=== PATIENT | female | born 2000 | race Caucasian/White ===

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

== ENCOUNTER 2021-12-13 18:50 | Outpatient (CLI) | payer MEDICAID, SELFPAY ==
[2021-12-13 19:24] VITALS: BP 129/83; PULSE 104; TEMP 37.2
[2021-12-13 19:27] LABS: Mucous, Urine 0 SEEN /hpf (<or=2+)
[2021-12-13 19:31] LABS: Color, Urine Yellow (Yellow); Glucose, Dipstick Normal (Normal); Leukocyte Esterase-Dipstick 25 /ul (Negative); Nitrite-Dipstick Negative (Negative); Occult Blood-Urine 10 /ul (Negative); Protein-Dipstick 15 mg/dl (Negative); Urine Bilirubin Dipstick Negative (Negative); Urine Clarity Sl. Cloudy (Clear); Urine Urobilinogen Normal (Normal)
[2021-12-13 19:41] VITALS: BMI 24.8
[2021-12-13 19:48] LABS: Ketone-Dipstick 150 mg/dl (Negative)
[2021-12-13 19:50] LABS: Red Blood Cells-Urine 5-10 SEEN /hpf (0-5); Squamous Epithelial Cells - UA 10-25 SEEN /hpf (5-10); White Blood Cells 5-10 SEEN /hpf (0-5)
[2021-12-13] MEDS: Lactated Ringers 1,000 ML 999 ML IV (19:50)
[2021-12-13 19:51] LABS: Bacteria 4+ /hpf (None Seen)
[2021-12-13] MEDS: Acetaminophen 500 MG Tablet 1000 MG PO (20:02)
[2021-12-13 20:21] LABS: Absolute Neutrophil Count 8.1 X10^3/uL (2.0-7.7); Basophil# 0.04 X10^3/uL; Basophil% 0.4 % (0-1); Eosinophil# 0.04 X10^3/uL; Eosinophils% 0.4 % (0-5); Hematocrit 31.7 % (37-47); Hemoglobin 11.1 g/dL (12.0-15.0); Lymphocyte % 12.4 % (19-41); Mean Corpuscular Volume 88.5 fL (81-99); Mean Platelet Vol. 11.3 fl (6.2-12.0); Monocyte# 0.91 X10^3/uL; Monocyte% 8.7 % (0-10); NRBC Flagged by Analyzer 0 % (0-5); Neutrophil # 8.12 X10^3/uL (2.7-7.7); Neutrophil % 77.3 % (47-70); Platelet Count 218 K/mm3 (150-450); RBC Distribution Width CV 12.5 % (11.6-14.6); RBC Distribution Width SD 40.4 fl (35.1-43.9); Red Blood Count 3.58 M/mm3 (4.2-5.4); White Blood Count 10.5 K/mm3 (4.4-11.0)
--- NOTE | 2021-12-13 20:23 | OB.TRI.NOTE ---
HPI - General HPI Narrative KEITH HIGH, is a 21 female 2 para 0 who presents at 32+ weeks with EDC of 02/04/2022 complaining of some cramping, diarrhea and back pain. She has had hip pain her whole . She thought she was cramping and having contractions earlier today. Now is mostly the back pain. She admits she is very upset because she broke up with her girlfriend today. She thinks some of this might be stress. She denies history of UTI during the . She denies any vaginal bleeding or leaking of fluid. She does states she has had some vaginal itching and thick white discharge. She has had yeast infections throughout the . Maternal Data Information Final HARPER: 02/04/22 Gestational age: 32 09/19 PFSH PFSH Medical History (Updated 12/13/21 @ 20:[address] Christal Fajardo MD) SAB (spontaneous ) Home Medications sertraline 100 mg tablet 100 mg PO DAILY #30 tab 04/06/21 [Rx Last Taken Unknown] cephalexin 500 mg PO TID 7 Days #21 cap 12/13/21 [Rx Last Taken Unknown] miconazole nitrate [Monistat 7] 1 ea VAGINAL QHS 7 Days #1 ea 12/13/21 [Rx Last Taken Unknown] Allergy/AdvReac Type Severity Reaction Status Date / Time No Known Allergies Allergy Verified 12/13/21 20:11 Family History Grandfather Diabetes Hypertension Social History (Updated 11/08/20 @ 17:[address] Alea Soria MD) Smoking Status: Current every day smoker alcohol intake: never substance use type: does not use caffeine: Yes what type of physical activity do you participate in: none seatbelt use: always do you feel safe at home: Yes History 1 Elective abortions Hx Para Spontaneous abortions Hx # Term Pregnancies Ectopic pregnancies Hx # Pregnancies Multiple births # of living children Physical Exam Narrative Awake, alert, no acute distress Skin warm dry and intact Abdomen soft, nondistended, gravid, appropriate for gestational age, nontender. No rebound or guarding no CVA tenderness Extremities: Trace edema NST FHR Rate Baby A Baseline: 150 Variability:: Moderate Accelerations:: 15 x 15 Decelerations:: None NST Reactive:: Yes FHR Category:: Category I Uterine Activity:: No regular contractions Assessment & Plan (1) 32 weeks gestation of : PLAN: We will give patient IV fluids, antiemetics, check CBC and urinalysis was reviewed. Consistent with urinary tract infection. No CVA tenderness and no fever so does not meet criteria for pyelonephritis. Will give 1 dose of Ancef and then sent home with p.o. antibiotics. We will give Monistat for vaginal yeast infection. Schedule follow-up in the office within 1 to 2 weeks or as needed. No evidence of active labor. (2) Nulliparity: (3) UTI (urinary tract infection): QUALIFIERS: Urinary tract infection type: acute cystitis Hematuria presence: with hematuria Qualified Code(s): N30.01 - Acute cystitis with hematuria
[2021-12-13 21:00] VITALS: BP 120/70; PULSE 70; O2SAT 92; O2SAT 97
== END 2021-12-13 21:30 | disposition home or self-care (01) ==
LOC: WPOUT 18:59 → WP 18:59
PROVIDERS: Visit Provider Obstetrics & Gynecology
DX: O23.43 Unspecified infection of urinary tract in pregnancy, third trimester (principal); O99.333 Smoking (tobacco) complicating pregnancy, third trimester; Z3A.32 32 weeks gestation of pregnancy; F17.200 Nicotine dependence, unspecified, uncomplicated; O99.891 Other specified diseases and conditions complicating pregnancy; R25.2 Cramp and spasm
CPT/HCPCS: 96365; 59025; 59050; 81001; 85025; 87086; 87088; 99218; J7120; G0378

== ENCOUNTER 2022-01-12 16:45 | Outpatient (CLI) | payer MEDICAID, SELFPAY ==
[2022-01-12 16:54] VITALS: BP 110/62; PULSE 73
[2022-01-12 16:57] VITALS: BP 110/62; PULSE 73; TEMP 37
[2022-01-12 17:08] VITALS: PULSE 70; O2SAT 98
[2022-01-12 17:12] VITALS: BMI 25.4
--- NOTE | 2022-01-13 07:38 | OB.TRI.NOTE ---
HPI - General General Date of Service: 01/12/22 Chief Complaint: diarrhea and nausea HPI Narrative KEITH HIGH, is a 21 F who presents for complaints of diarrhea and nausea- last episode of vomiting was hours prior to arrival. has some cramping. PFSH PFS Medical History (Updated 01/13/22 @ 07:[address] Paola Sierra MD) SAB (spontaneous ) Home Medications vits,calcium no.78-iron fumarate-folic acid 29 mg-1 mg tablet (Prenatabs FA) 1 tab PO DAILY 01/12/22 [History Last Taken Unknown] Allergy/AdvReac Type Severity Reaction Status Date / Time cider vinegar Allergy Food Verified 01/12/22 17:20 Allergy Family History Grandfather Diabetes Hypertension Social History (Updated 11/08/20 @ 17:[address] Alea Soria MD) Smoking Status: Current every day smoker alcohol intake: never substance use type: does not use caffeine: Yes what type of physical activity do you participate in: none seatbelt use: always do you feel safe at home: Yes History 1 Elective abortions Hx Para Spontaneous abortions Hx # Term Pregnancies Ectopic pregnancies Hx # Pregnancies Multiple births # of living children NST FHR Rate Baby A Baseline: 125 Variability:: Moderate Accelerations:: 15 x 15 Decelerations:: None NST Reactive:: Yes FHR Category:: Category I Uterine Activity:: more irritability Assessment & Plan (1) Nausea/vomiting in : (2) Diarrhea during : PLAN: Plan @ 37 weeks, nausea and diarrhea afebrile on unit, VS stable NST reactive cat 1 able to tolerate po fluids plan to dc home- If unable to tolerate fluids for 24 hrs or has fever will return
== END 2022-01-12 17:43 | disposition home or self-care (01) ==
LOC: WPOUT 16:48 → WP 16:49
PROVIDERS: Referring Provider Obstetrics & Gynecology; Visit Provider Obstetrics & Gynecology
DX: O21.2 Late vomiting of pregnancy (principal); O99.891 Other specified diseases and conditions complicating pregnancy; O99.333 Smoking (tobacco) complicating pregnancy, third trimester; R19.7 Diarrhea, unspecified; F17.200 Nicotine dependence, unspecified, uncomplicated; Z3A.37 37 weeks gestation of pregnancy
CPT/HCPCS: 59025; 59050; 99218; G0378

== ENCOUNTER 2022-02-03 12:10 | Outpatient (CLI) | payer MEDICAID, SELFPAY ==
[2022-02-03 12:29] VITALS: BMI 26.9
[2022-02-03 12:35] VITALS: BP 123/80; PULSE 114; TEMP 37.3
[2022-02-03 12:36] VITALS: PULSE 127; O2SAT 97
[2022-02-03 12:40] VITALS: TEMP 38.3
[2022-02-03] MEDS: Lactated Ringers 1,000 ML 999 ML IV (13:10)
[2022-02-03] MEDS: Acetaminophen 500 MG Tablet 1000 MG PO (13:19)
[2022-02-03 13:22] LABS: Hematocrit 30.7 % (37-47); Hemoglobin 10.1 g/dL (12.0-15.0); Mean Corp Hgb Conc 32.9 g/dL (32-36); Mean Corpuscular Hgb 28.8 pg (27.0-32.0); Mean Corpuscular Volume 87.5 fL (81-99); Mean Platelet Vol. 11.8 fl (6.2-12.0); Platelet Count 122 K/mm3 (150-450); RBC Distribution Width SD 43.6 fl (35.1-43.9); Red Blood Count 3.51 M/mm3 (4.2-5.4); White Blood Count 9.3 K/mm3 (4.4-11.0)
[2022-02-03 13:41] LABS: ALB/GLOB Ratio 0.7 RATIO (0.9-2.4); AST(SGOT) 15 U/L (15-37); Alanine Aminotransfer ALT/SGPT 15 U/L (13-56); Albumin, Serum 2.6 g/dL (3.2-5.0); Alkaline Phosphatase 158 U/L (45-117); Anion Gap 8 (5-15); BUN 5 mg/dL (7-18); BUN/Creat Ratio 7.5 RATIO (10-20); Calcium,Total 8.3 mg/dL (8.5-10.1); Chloride 109 mmol/L (98-107); Creatinine, Serum 0.66 mg/dL (0.55-1.02); EST Glomerular Filtration Rate 120 mL/min (>60); Est Glom Filt Rate - Afr Amer 145 mL/min (>60); Estimated Creatinine Clearance 127.29 ml/min; Globulin 3.6 g/dL (2.2-4.2); Glucose 75 mg/dL (74-106); Potassium 3.3 mmol/L (3.5-5.1); Protein, Total 6.2 g/dL (6.4-8.2); Sodium Level 137 mmol/L (136-145)
[2022-02-03 14:13] LABS: Bacteria 0 SEEN /hpf (None Seen); Mucous, Urine 0 SEEN /hpf (<or=2+); Red Blood Cells-Urine 0 SEEN /hpf (0-5); Squamous Epithelial Cells - UA 0 SEEN /hpf (5-10); White Blood Cells 0 SEEN /hpf (0-5)
[2022-02-03 14:22] LABS: Color, Urine Yellow (Yellow); Glucose, Dipstick Normal (Normal); Ketone-Dipstick Negative (Negative); Leukocyte Esterase-Dipstick Negative /ul (Negative); Nitrite-Dipstick Negative (Negative); Occult Blood-Urine Negative /ul (Negative); Protein-Dipstick Negative (Negative); Urine Bilirubin Dipstick Negative (Negative); Urine Clarity Clear (Clear); Urine Urobilinogen Normal (Normal); Urine pH 6.5 (5.0 - 8.0)
[2022-02-03] MEDS: Ondansetron 4 MG/2 ML Vial IV (14:36)
[2022-02-03 14:41] VITALS: BP 132/80; PULSE 101; TEMP 37.1; O2SAT 97
--- NOTE | 2022-02-04 09:55 | OB.TRI.NOTE ---
HPI - General HPI Narrative KEITH HIGH, is a 21 F who presents at 40w1d with complaint of lower back pain intermittently. Complaint of nausea, vomiting, diarrhea and fever. Feelin baby move. Denies vaginal bleeding or leakage of fluid, unsure if having contractions. PFSH PFSH Medical History (Updated 02/04/22 @ 09:58 by Meagan Peraza CNM) SAB (spontaneous ) Home Medications vits,calcium no.78-iron fumarate-folic acid 29 mg-1 mg tablet (Prenatabs FA) 1 tab PO DAILY 01/12/22 [History Last Taken 02/02/22 08:00] iron 324 mg PO/SL DAILY 02/03/22 [History Last Taken 02/02/22 08:00] Allergy/AdvReac Type Severity Reaction Status Date / Time cider vinegar Allergy Food Verified 02/03/22 12:37 Allergy Family History Grandfather Diabetes Hypertension Social History (Updated 11/08/20 @ 17:[address] Alea Soria MD) Smoking Status: Current every day smoker alcohol intake: never substance use type: does not use caffeine: Yes what type of physical activity do you participate in: none seatbelt use: always do you feel safe at home: Yes History 1 Elective abortions Hx Para Spontaneous abortions Hx # Term Pregnancies Ectopic pregnancies Hx # Pregnancies Multiple births # of living children Physical Exam Narrative Cervix closed per nursing staff NST FHR Rate Baby A Baseline: 125 Variability:: Moderate Accelerations:: 15 x 15 Decelerations:: None NST Reactive:: Yes Uterine Activity:: None Assessment & Plan (1) COVID-19 affecting in third trimester: (2) Diarrhea during : (3) Nausea/vomiting in : PLAN: Plan 1) vitals stable, temp 100.9 2) WBC 9.3 3) 1 liter LR bolus 4) COVID positive 5) Urine culture 6) Reactive NST 7) D/C home with home management and when to call
== END 2022-02-03 15:45 | disposition home or self-care (01) ==
LOC: WPOUT 12:16 → WP 12:16
PROVIDERS: Referring Provider Advanced Practice Midwife; Visit Provider Advanced Practice Midwife
DX: O98.513 Other viral diseases complicating pregnancy, third trimester (principal); O99.333 Smoking (tobacco) complicating pregnancy, third trimester; O99.891 Other specified diseases and conditions complicating pregnancy; O21.2 Late vomiting of pregnancy; U07.1 COVID-19; F17.200 Nicotine dependence, unspecified, uncomplicated; R19.7 Diarrhea, unspecified; Z3A.40 40 weeks gestation of pregnancy
CPT/HCPCS: 96365; 96375; 80053; 87428; J2405; 59050 ×2; 81001; 59025; 87088; G0378 ×2; 85027; 87086; 99218; J7120

== ENCOUNTER 2022-02-06 19:20 | Inpatient (IN) | payer MEDICAID, SELFPAY ==
[2022-02-06] VITALS (34 sets, daily range): BP systolic 112–169; BP diastolic 58–107; PULSE 56–103; TEMP 36.2–37.1; O2SAT 94–100; BMI 26.6
[2022-02-06] MEDS: LACTATED RINGERS 500 ML 999 ML IV (19:40)
[2022-02-06 19:58] LABS: Absolute Lymphocyte Count 0.87 X10^3/uL (0.83-4.51); Absolute Neutrophil Count 5.9 X10^3/uL (2.0-7.7); Basophil# 0.02 X10^3/uL; Basophil% 0.3 % (0-1); Eosinophil# 0.01 X10^3/uL; Eosinophils% 0.1 % (0-5); Hematocrit 34.2 % (37-47); Lymphocyte # 0.87 X10^3/ul (0.83-4.51); Lymphocyte % 11.7 % (19-41); Mean Corp Hgb Conc 32.2 g/dL (32-36); Mean Corpuscular Hgb 28.1 pg (27.0-32.0); Mean Corpuscular Volume 87.5 fL (81-99); Mean Platelet Vol. 12.3 fl (6.2-12.0); Monocyte# 0.65 X10^3/uL; Monocyte% 8.7 % (0-10); NRBC Flagged by Analyzer 0 % (0-5); Neutrophil # 5.87 X10^3/uL (2.7-7.7); Neutrophil % 78.8 % (47-70); Platelet Count 133 K/mm3 (150-450); RBC Distribution Width CV 13.9 % (11.6-14.6); RBC Distribution Width SD 43.9 fl (35.1-43.9); Red Blood Count 3.91 M/mm3 (4.2-5.4); White Blood Count 7.5 K/mm3 (4.4-11.0)
[2022-02-06] MEDS: Lactated Ringers 1,000 ML 200 ML IV (20:11)
[2022-02-06] MEDS: fentaNYL-bupivacaine (epidural) 100 ML BAG EPIDURAL (20:43)
[2022-02-06 20:54] LABS: AST(SGOT) 26 U/L (15-37); Alanine Aminotransfer ALT/SGPT 22 U/L (13-56); Creatinine, Serum 0.63 mg/dL (0.55-1.02); EST Glomerular Filtration Rate 128 mL/min (>60); Est Glom Filt Rate - Afr Amer 155 mL/min (>60); Estimated Creatinine Clearance 138.52 ml/min; Uric Acid 7.5 mg/dL (2.6-6.0)
[2022-02-06 21:02] LABS: Protein, Urine (Random) 50.5 mg/dL (<11.9); Protein:Creat Ratio 380 mg/g CRE (0-200)
[2022-02-06 21:43] LABS: Amphetamine Urine VISTA NEGATIVE (<1000 ng/mL); Barbiturate Urine VISTA NEGATIVE (< 200 ng/mL); Benzodiazepine Urine VISTA NEGATIVE (< 200 ng/mL); Cocaine Urine VISTA NEGATIVE (< 300 ng/mL); Ecstacy Urine VISTA NEGATIVE (< 500 ng/mL); Methadone Urine VISTA NEGATIVE (< 300 ng/mL); PCP Urine VISTA NEGATIVE (< 25 ng/mL); THC Urine VISTA POSITIVE (< 50 ng/mL); Vista UDS pH Range 7
[2022-02-06] MEDS: Ondansetron 4 MG/2 ML Vial IV (21:46)
--- NOTE | 2022-02-06 23:08 | PCM.HP.OB ---
HPI - General General Date of Admission: 02/06/22 Date of Service: 02/06/22 Chief Complaint: labor HPI Narrative KEITH HIGH, is a 21 F who presents at 40w4d in labor. Had membrane sweep in office and changed from 2 to 4 cm. No vb, lof. Good FM. Diagnosed with Covid 3 days ago. Late transfer of care in this . FOB is not involved. H/o depression and nicotine vaping. PFSH PFSH Medical History (Updated 02/06/22 @ 23:[address] Kortney Yarbrough, DO) SAB (spontaneous ) Home Medications vits,calcium no.78-iron fumarate-folic acid 29 mg-1 mg tablet (Prenatabs FA) 1 tab PO DAILY Check with primary doctor 01/12/22 [History Last Taken 02/03/22 21:00] iron 324 mg PO/SL DAILY Check with primary doctor 02/03/22 [History Last Taken 02/03/22 21:00] Allergy/AdvReac Type Severity Reaction Status Date / Time cider vinegar Allergy Food Verified 02/06/22 19:41 Allergy Family History Grandfather Diabetes Hypertension Social History (Updated 11/08/20 @ 17:[address] Alea Soria MD) Smoking Status: Former smoker alcohol intake: never substance use type: does not use caffeine: Yes what type of physical activity do you participate in: none seatbelt use: always do you feel safe at home: Yes History 1 Elective abortions Hx Para 0 Spontaneous abortions Hx # Term Pregnancies Ectopic pregnancies Hx # Pregnancies Multiple births # of living children NST FHR Rate Baby A FHR Category:: Category I Uterine Activity:: Ctx q 3-4 min Vital Signs Vital Signs Vital Signs: 02/06/22 18:45 02/06/22 18:45 02/06/22 19:29 Temperature Temperature Source Pulse Rate 74 Blood Pressure 138/80 H 166/107 H BP Systolic 138 166 BP Diastolic 80 107 Pulse Ox 02/06/22 19:29 02/06/22 19:45 02/06/22 19:45 Temperature Temperature Source Pulse Rate 103 H 99 Blood Pressure 156/104 H BP Systolic 156 BP Diastolic 104 Pulse Ox 02/06/22 20:01 02/06/22 20:01 02/06/22 20:17 Temperature Temperature Source Pulse Rate 72 Blood Pressure 169/98 H 136/86 H BP Systolic 169 136 BP Diastolic 98 86 Pulse Ox 02/06/22 20:18 02/06/22 20:18 02/06/22 20:25 Temperature Temperature Source Pulse Rate 75 78 Blood Pressure BP Systolic BP Diastolic Pulse Ox 98 02/06/22 20:25 02/06/22 20:30 02/06/22 20:30 Temperature Temperature Source Pulse Rate 64 Blood Pressure 134/83 H BP Systolic 134 BP Diastolic 83 Pulse Ox 98 02/06/22 20:30 02/06/22 20:35 02/06/22 20:35 Temperature Temperature Source Pulse Rate 73 Blood Pressure BP Systolic BP Diastolic Pulse Ox 100 100 02/06/22 20:36 02/06/22 20:36 02/06/22 20:40 Temperature Temperature Source Pulse Rate 69 68 Blood Pressure 129/80 H BP Systolic 129 BP Diastolic 80 Pulse Ox 02/06/22 20:40 02/06/22 20:41 02/06/22 20:41 Temperature Temperature Source Pulse Rate 81 Blood Pressure 132/80 H BP Systolic 132 BP Diastolic 80 Pulse Ox 98 02/06/22 20:45 02/06/22 20:45 02/06/22 20:45 Temperature Temperature Source Pulse Rate 75 Blood Pressure 138/82 H BP Systolic 138 BP Diastolic 82 Pulse Ox 99 02/06/22 20:50 02/06/22 20:50 02/06/22 20:50 Temperature Temperature Source Pulse Rate 69 Blood Pressure 125/90 H BP Systolic 125 BP Diastolic 90 Pulse Ox 99 02/06/22 20:53 02/06/22 20:53 02/06/22 20:55 Temperature 98.2 F Temperature Source Temporal Pulse Rate 84 Blood Pressure BP Systolic BP Diastolic Pulse Ox 02/06/22 20:55 02/06/22 20:57 02/06/22 20:57 Temperature Temperature Source Pulse Rate 61 Blood Pressure BP Systolic BP Diastolic Pulse Ox 100 94 02/06/22 21:00 02/06/22 21:00 02/06/22 21:00 Temperature Temperature Source Pulse Rate 66 Blood Pressure 117/62 BP Systolic 117 BP Diastolic 62 Pulse Ox 99 02/06/22 21:00 02/06/22 21:05 02/06/22 21:05 Temperature Temperature Source Pulse Rate 73 67 Blood Pressure BP Systolic BP Diastolic Pulse Ox 99 02/06/22 21:07 02/06/22 21:07 02/06/22 21:10 Temperature Temperature Source Pulse Rate 63 Blood Pressure 114/66 118/58 L BP Systolic 114 118 BP Diastolic 66 58 Pulse Ox 02/06/22 21:10 02/06/22 21:10 02/06/22 21:16 Temperature Temperature Source Pulse Rate 64 Blood Pressure 127/62 H BP Systolic 127 BP Diastolic 62 Pulse Ox 99 02/06/22 21:16 02/06/22 21:15 02/06/22 21:19 Temperature Temperature Source Pulse Rate 64 Blood Pressure 124/62 H BP Systolic 124 BP Diastolic 62 Pulse Ox 99 02/06/22 21:19 02/06/22 21:20 02/06/22 21:20 Temperature Temperature Source Pulse Rate 66 56 L Blood Pressure BP Systolic BP Diastolic Pulse Ox 99 02/06/22 21:25 02/06/22 21:25 02/06/22 21:32 Temperature Temperature Source Pulse Rate 74 Blood Pressure 131/76 H BP Systolic 131 BP Diastolic 76 Pulse Ox 98 02/06/22 21:32 02/06/22 21:47 02/06/22 21:47 Temperature Temperature Source Pulse Rate 72 63 Blood Pressure 112/67 BP Systolic 112 BP Diastolic 67 Pulse Ox 02/06/22 21:48 02/06/22 21:48 02/06/22 21:51 Temperature Temperature Source Temporal Pulse Rate 59 L Blood Pressure 115/70 BP Systolic 115 BP Diastolic 70 Pulse Ox 02/06/22 21:51 02/06/22 22:16 02/06/22 22:16 Temperature 98.0 F Temperature Source Pulse Rate 57 L Blood Pressure 120/71 BP Systolic 120 BP Diastolic 71 Pulse Ox 02/06/22 22:27 02/06/22 22:27 02/06/22 22:27 Temperature Temperature Source Pulse Rate 62 Blood Pressure 153/103 H BP Systolic 153 BP Diastolic 103 Pulse Ox 100 02/06/22 22:38 02/06/22 22:38 02/06/22 22:38 Temperature Temperature Source Temporal Pulse Rate 98 Blood Pressure 128/64 H BP Systolic 128 BP Diastolic 64 Pulse Ox 02/06/22 22:38 Temperature 97.9 F Temperature Source Pulse Rate Blood Pressure BP Systolic BP Diastolic Pulse Ox Weight Weight: 170 lb Body Mass Index (BMI) 26.6 Physical Exam Narrative: Cvx 6/80/-1, vertex Labs Labs Labs: Blood Type O POSITIVE Antibody Screen NEGATIVE Hct 34.2 % (37-47) L Hgb 11.0 g/dL (12.0-15.0) L Obstetrics US Assessment & Plan (1) COVID-19 affecting in third trimester: (2) 40 weeks gestation of : PLAN: - Admit for routine intrapartum care - Epidural for pain control - GBS negative - EFW expected to be < 4500 g and pelvis adequate - Covid positive. Contact precautions - Anticipate vaginal delivery (3) Active labor at term: (4) History of depression: (5) History of nicotine vaping: PLAN: - Drug screen on admission (6) Pre-eclampsia: PLAN: - BP elevated on admission and now WNL - No symptoms of pre e - Labs WNL except elevated p/c ratio
--- NOTE | 2022-02-06 23:13 | PCM.PN.BLA ---
Progress Note Cvx 6/-1, head well applied. AROM performed in usual fashion for return of moderate amount of clear fluid.
[2022-02-07] VITALS (28 sets, daily range): BP systolic 114–202; BP diastolic 58–99; PULSE 53–134; RESP 14–18; TEMP 36.2–37.1; O2SAT 96–99
[2022-02-07] MEDS: Lactated Ringers 1,000 ML 200 ML IV (01:03)
[2022-02-07] MEDS: fentaNYL-bupivacaine (epidural) 100 ML BAG EPIDURAL (01:04)
[2022-02-07] MEDS: Ondansetron 4 MG/2 ML Vial IV (02:37)
[2022-02-07] MEDS: Oxytocin 30 units/NS 500 ml 30 UNITS/500 ML IV.SOLN 334 UNITS IV (03:57)
[2022-02-07] MEDS: miSOPROStol 200 MCG Tablet 800 MCG RC (04:09)
--- NOTE | 2022-02-07 04:15 | PCM.OPRPT ---
Problems Associated Problem List Diagnoses (1) Pre-eclampsia: (2) History of nicotine vaping: (3) History of depression: (4) Active labor at term: (5) 40 weeks gestation of : (6) COVID-19 affecting in third trimester: Report of Operation Date of Procedure: 02/07/22 Pre-Operative Diagnosis: 40 week gestation, labor, covid infection, pre eclampsia without severe features Post-Operative Diagnosis: As above Surgery/Procedure Performed:: Description of Surgical Findings:: VFI 8, 9. Normal appearing placenta with 3 VC. Normal uterus. Surgeon: Kortney Yarbrough Type of Anesthesia: Epidural Special Medications: None Specimen's removed: Placenta Drains: Schmidt Estimated Blood Loss (mL): 300 Fluids Replaced: n/a Description of Procedure: Patient was complete and pushing. Variable decelerations were noted with pushing, but good recovery of heart rate with moderate variability in between. Patient was pushing for about 1 hour. The variable decelerations were noted to be more prolonged at this point. Fetus in occiput anterior position. Perineal massage was applied throughout the pushing process. A tight perineal band was noted, and it was felt to be preventing delivery at this point. Discussed episiotomy with patient and she desired to proceed. A midline episiotomy was made using scissors. With the next contraction after the episiotomy was made, the infant was delivered. The head of the infant was delivered in occiput anterior position. The anterior shoulder was delivered with gentle downward traction, followed by the posterior shoulder and body of the without any excessive force or delay. The viable female infant was vigorous and placed on the maternal abdomen. The cord was clamped and cut after a 60 sec delay by a family member. Cord blood was obtained. The placenta was delivered with fundal massage and noted to be normal-appearing and intact with a three-vessel cord. The placenta was sent to pathology for review. Uterus was explored and it was noted to be firm. Bleeding then increased and uterus was explored and noted to be boggy. No retained placenta or tissue was noted, the uterus was cleared of all clot and debris. Uterine massage was performed and the uterus was then firm and bleeding hemostatic. A second-degree perineal laceration was repaired with 3-0 Vicryl in usual fashion. 800 mcg of Cytotec was placed rectally. Fundus firm and bleeding hemostatic at end of delivery. Grafts/Implants Used: None Complications None Admit VTE Documentation VTE Present on Admission: No
--- NOTE | 2022-02-07 04:39 | PLAC_PTH ---
PATIENT: KEITH HIGH LOC: [facility] U#:[id number] AGE/SX: 21/F ROOM: WP010 RE02/06/[address]: Dr. Kortney Yarbrough DO : 2000 BED: 1 DIS: 02/09/2022 SPEC #: [id number] RECD: 02/07/22 08:29 STATUS: DELANEY ELA #: [id number] ZACK: 02/07/22 04:[address]: Kortney Yarbrough DEPT: SURGICAL PATHOLOGY RECD BY: Niko Alonzo ENTERED: 02/07/22 08:51 SP TYPE: PLACENTA OTHR DR: No Primary Care Phys Tissues: Placenta, NOS Procedures: Surgery Specimen Level V HEADER OPERATION: Vaginal delivery PRE-OP DIAGNOSIS: Covid in TISSUE SUBMITTED: Placenta MICROSCOPIC DIAGNOSIS Placenta: Placental disc - third trimester placenta (534 gm). - Focal area of peripheral infarction (1.5 cm in greatest dimension). - Focal minimal acute vasculitis of subamniotic blood vessels. Membranes - mild acute chorioamnionitis. Umbilical cord - three blood vessels and minimal acute funisitis. SJ:feliz 02/09/2022 MICROSCOPIC DESCRIPTION Slides are reviewed. GROSS DESCRIPTION SPECIMEN: PLACENTA / CLINICAL INFORMATION: A. Weight: 3.28 kg B. Gestational Age: 40 weeks C. Sex: Female PLACENTAL WEIGHT (POST FIXATION): 534 gm PLACENTAL DIMENSIONS: 20 x 18 x 2.5 cm PLACENTAL SHAPE: Usual ovoid PLACENTAL WEIGHT FOR GESTATIONAL AGE: Within 10-99th percentile MEMBRANES - Present A. Insertion: Marginal B. Site of rupture from edge: 5 cm from edge of placental disc C. Color of membrane: Soto-mucoidy D. Abnormalities: None UMBILICAL CORD - Present A. Color: Soto-nguyễn B. Insertion: Paracentral C. Length: 29 cm D. Diameter: 1 to 2 cm E. Number of vessels: Three F. Abnormalities: None PLACENTAL DISC - Present A. Color of surface: Soto-nguyễn B. surface abnormalities: None C. Maternal cotyledons: Intact with minimal tears D. Attached retro placental clot: No clot E. Cut surface: Dark red and spongy F. Lesions: Sections reveal a soto, indurated area in the peripheral portion of the placenta measuring 1.5 cm in greatest dimension. G. Separate clot: Absent SECTIONS SUBMITTED: 1. Membrane roll 2. Cord, maternal end 3. Cord, end 4. Placental disc, and maternal surfaces 5. Placental disc, and maternal surfaces 6. Placental disc, and maternal surfaces, lesion SJ:feliz 02/08/2022 TC:2 CPT: 79299
[2022-02-07] MEDS: 0.9% Saline Lock 10 ML Syringe IV (06:33)
[2022-02-07] MEDS: Ibuprofen 600 MG Tablet PO ×3 (09:41→23:37)
[2022-02-07] MEDS: Benzocaine/Lanolin/Aloe Vera 1 SPRAY EACH TOPICAL (09:42)
[2022-02-07] MEDS: Acetaminophen 500 MG Tablet 1000 MG PO (21:11)
[2022-02-08] VITALS (7 sets, daily range): BP systolic 119–158; BP diastolic 73–95; PULSE 43–79; RESP 16–18; TEMP 36.1–36.3; O2SAT 98–99
--- NOTE | 2022-02-08 03:26 | NURSING ---
0245 report given to Rani CAMPOS she assumes pt and care at this time
--- NOTE | 2022-02-08 06:32 | PCM.PN.OB ---
Subjective Subjective Pain well controlled. Average lochia. Denies headache or visual changes. Objective Data Objective Data 2+ DTRs, 1+ edema, no clonus Vital Signs: Vital Signs Temp Pulse Resp BP Pulse Ox O2 Del Method 97.1 F L 52 L 18 132/78 H 99 Room Air 02/07/22 23:40 02/08/22 04:38 02/08/22 04:38 02/08/22 04:38 02/07/22 23:40 02/08/22 04:38 Oxygen Delivery Method Room Air Weight: 77.111 kg Body Mass Index (BMI) 26.6 Intake & Output: Intake and Output for Last 24 Hours 02/06/22 02/07/22 02/08/22 23:59 23:59 23:59 Intake Total 500 / 500 2143.33 / 2143.33 Output Total 2600 / 2600 Balance 500 / 500 -456.67 / -456.67 Lab / Micro Data Result Diagrams: 02/06/22 19:40 02/06/22 19:40 Physical Exam Const alert and no apparent distress Narrative: Fundus firm, below umbilicus. Assessment & Plan (1) Pre-eclampsia: PLAN: day 1 status post vaginal delivery. Patient diagnosed with mild preeclampsia. Blood pressures are stable. Continue to monitor blood pressures. is bottlefeeding and doing well. Patient has COVID-19, symptoms have markedly improved since last week when she is diagnosed. Routine care
--- NOTE | 2022-02-08 09:47 | NURSING ---
Dr. Fajardo on unit. Notified of pulse rate 43 and BP's that were taken at [address] Fajardo states to notify her if BP's start to trend upwards or patient has a change of status. No changes to POC at this time.
[2022-02-08] MEDS: Ibuprofen 600 MG Tablet PO (13:52)
--- NOTE | 2022-02-08 13:54 | NURSING ---
Pt denies vision changes, NORMAN, or epigastric pain. BP elevated on both arms while pt at rest. Will notify doctor.
--- NOTE | 2022-02-08 14:07 | NURSING ---
Called [facility] office and left message with the nurse to update Doctor Fajardo on pt's BP's in the 150's. Pt is asymptomatic. Nurse states that she will pass the message along to Dr. Fajardo when she gets out of the room with her patient.
--- NOTE | 2022-02-08 14:22 | NURSING ---
Dr. Fajardo calls unit for update on BP. Order received for Procardia XL 30 mg Daily
[2022-02-08] MEDS: NIFEdipine 30 MG Tablet PO (14:48)
[2022-02-09] MEDS: Ibuprofen 600 MG Tablet PO (01:11)
[2022-02-09 01:13] VITALS: BP 133/84; PULSE 63; RESP 16; TEMP 36.7; O2SAT 98
[2022-02-09 04:09] VITALS: BP 125/77; PULSE 53; RESP 16; TEMP 36.2; O2SAT 95
--- NOTE | 2022-02-09 08:21 | DS.PCM_ITS ---
Providers Date of Admission: 02/06/22 Primary Care Physician: Ciera Primary Care Phys Reason For Visit: VAGINAL DELIVERY Diagnosis Discharge Diagnosis (1) Pre-eclampsia: Status: Acute Code(s): O14.90 - Unspecified pre-eclampsia, unspecified trimester Plan: day 1 status post vaginal delivery. Patient diagnosed with mild preeclampsia. Blood pressures are stable. Continue to monitor blood pressures. is bottlefeeding and doing well. Patient has COVID-19, symptoms have markedly improved since last week when she is diagnosed. Routine care Medications at Discharge Home Medications vits,calcium no.78-iron fumarate-folic acid 29 mg-1 mg tablet (Prenatabs FA) 1 tab PO DAILY Check with primary doctor 01/12/22 iron 324 mg PO/SL DAILY Check with primary doctor 02/03/22 ibuprofen 600 mg tablet 600 mg PO Q6H PRN Pain 20 days #60 TABLETS 02/09/22 nifedipine 30 mg tablet,extended release 24 hr (Procardia XL) 30 mg PO DAILY #30 tabs 02/09/22 Hospital Course Operations None Procedures None Summary of Care Provided Hospital Course: 21-year-old 1 para 0 admitted at 40-4/7 weeks gestation on 02/06/2022 and spontaneous labor. She had a vaginal delivery without complication on 02/07/2022. She was diagnosed with COVID 19 3 days before delivery. She was fee ling better upon admission. She denied any significant shortness of breath, fevers or cough. She was diagnosed with preeclampsia without severe features. on evening #1 her blood pressures did increase significantly. She is started on Procardia 30 mg daily and her blood pressure stabilized. By day #2 her blood pressures are stable and she had no signs or symptoms of severe preeclampsia. She was discharged home to follow-up in the office for blood pressure check within 5 days or return as needed. Weight / BMI Weight Weight: 77.111 kg Body Mass Index (BMI) 26.6 ABG / Lab / Microbiology Data Result Diagrams: 02/06/22 19:40 02/06/22 19:40 Meaningful Use Info Meaningful Use Diagnoses (Choose all that apply): None applicable Discharge Plan Admission Admit Date/Time: 02/06/22 19:20 Primary Reason for Your Visit: Vaginal delivery Attending Provider: Kortney Yarbrough Primary Care Provider: Care Physician,Ciera Primary Discharge Orders/Prescriptions Prescriptions: New nifedipine [Procardia XL] 30 mg tablet extended release 24hr 30 mg PO DAILY Qty: 30 0RF ibuprofen [ibuprofen] 600 MG tablet 600 mg PO Q6H PRN (Reason: Pain) 20 Days Qty: 60 1RF Continued Prenatabs FA 29-1 mg Tablet 1 tab PO DAILY iron 324 mg PO/SL DAILY Referrals / Follow Up: Care Physician,No Primary [Primary Care Provider] - Disposition Disposition (needs filled in before D/C Order can be placed): Home, Self Care
--- NOTE | 2022-02-09 08:48 | PCM.PN.OB ---
Subjective Subjective Patient is doing well. Ambulating and voiding without difficulty. Tolerating regular diet without nausea or vomiting. Lochia is normal. She denies chest pain, shortness of breath, lightheadedness, dizziness, leg pain. She desires to go home today. Objective Data Objective Data Vital Signs: Vital Signs Temp Pulse Resp BP Pulse Ox O2 Del Method 97.1 F L 53 L 16 125/77 H 95 Room Air 02/09/22 04:09 02/09/22 04:09 02/09/22 04:09 02/09/22 04:09 02/09/22 04:09 02/09/22 04:09 Oxygen Delivery Method Room Air Weight: 170 lb Body Mass Index (BMI) 26.6 Intake & Output: Intake and Output for Last 24 Hours 02/07/22 02/08/22 02/09/22 23:59 23:59 23:59 Intake Total 2143.33 / 2143.33 Output Total 2600 / 2600 Balance -456.67 / -456.67 Lab / Micro Data Result Diagrams: 02/06/22 19:40 02/06/22 19:40 Physical Exam Const alert and no apparent distress General Appearance: comfortable HEENT normocephalic Assessment & Plan (1) Pre-eclampsia: (2) COVID-19 affecting in third trimester: (3) Vaginal delivery: PLAN: Patient is day 2 from a vaginal delivery. Procardia was started yesterday. Blood pressures are well controlled on Procardia. She denies any symptoms of preeclampsia this morning. We will send a blood pressure cuff to pharmacy. Discussed checking blood pressures at home and following up in 1 week for blood pressure check. Reviewed warning signs and symptoms of worsening preeclampsia and reasons to call. She is meeting all milestones for home desires discharge. Discharge instructions were reviewed.
[2022-02-09 09:27] VITALS: BP 144/81; PULSE 55; RESP 16; TEMP 36.1; O2SAT 97
--- NOTE | 2022-02-09 09:56 | NURSING ---
Called [facility] and spoke with Gloria Peraza CNM about Pt's BP of 144/81. Pt is to let office know if her BP's at home are consistently 140's/80's. Pt needs to take BP twice a day and f/u in the office next week. The office will call the patient to schedule a a f/u appt. Dr. Yarbrough came on the unit as this RN was finished talking to Gloria Peraza CNM about POC and she agreed with plan.
[2022-02-09 13:11] VITALS: BP 145/94; PULSE 67; RESP 16; TEMP 36.4; O2SAT 100
[2022-02-09] MEDS: NIFEdipine 30 MG Tablet PO (13:14)
[2022-02-09 14:42] LABS: Pathology Specimen OB SEE PATHOLOGY REPORT
== END 2022-02-09 13:20 | disposition home or self-care (01) | DRG 560 ==
LOC: WPOUT 19:20 → WP 19:29
PROVIDERS: Admitting Provider Obstetrics & Gynecology; Visit Provider Obstetrics & Gynecology
DX: O14.04 Mild to moderate pre-eclampsia, complicating childbirth (principal); Z37.0 Single live birth; U07.1 COVID-19; O98.52 Other viral diseases complicating childbirth; Z87.891 Personal history of nicotine dependence; Z3A.40 40 weeks gestation of pregnancy; O76 Abnormality in fetal heart rate and rhythm complicating labor and delivery; O70.1 Second degree perineal laceration during delivery
CPT/HCPCS: 59025; 59050; 80053; 80307; 81001; 82565; 82570; 84156; 84450; 84460; 84550; 85025; 85027; 86850; 86900; 86901; 87086; 87088; 87428; 88307; 99218; J7120; A4216; G0378; J2405

== ENCOUNTER 2022-02-10 17:40 | Observation (INO) | payer MEDICAID, SELFPAY ==
[2022-02-10 17:56] VITALS: BP 145/102; PULSE 84; RESP 16; TEMP 36.4; O2SAT 97
[2022-02-10 17:58] VITALS: BMI 22.9
[2022-02-10 18:03] VITALS: BP 132/83
[2022-02-10 18:18] VITALS: BP 127/83; PULSE 74
--- NOTE | 2022-02-10 18:20 | EKGRS_ITS ---
Test Reason : rhythm change Blood Pressure : / mmHG Vent. Rate : 063 BPM Atrial Rate : 063 BPM P-R Int : 162 ms QRS Dur : 074 ms QT Int : 436 ms P-R-T Axes : 040 070 058 degrees QTc Int : 446 ms Normal sinus rhythm with sinus arrhythmia Normal ECG Confirmed by ESME FERGUSON, ROBERT ([id number]), subeditor NANCY CHEEK ([id number]) on 02/21/2022 9:57:57 AM Referred By: Confirmed By:ROBERT VICTORIA MD
--- NOTE | 2022-02-10 18:26 | NURSING ---
Addendum entered by Georgette Sweet 02/10/22 18:40: 1816-made aware pt here and of her c/o at home of feeling dzy last evening felt like her heart was racing, felt shakey so she called the squad and went to [facility] states she wasnt feeling right, and couldnt get her words out right. had lab work and had received labetalol there. was discharged and then went to [facility] and they gave her an anxiety med and then she fell asleep and woke up feeling ok a little less shakey. pt reports feeling her heart racing off and on. was discharged home taking nifedipine ER 30mg. Order received will implement. Original Note: 1815-called taco sweeney made aware of pt here and
[2022-02-10] MEDS: 0.9% Saline Lock 10 ML Syringe IV (18:30)
[2022-02-10 18:33] VITALS: BP 128/83; PULSE 62; O2SAT 97
[2022-02-10 18:42] LABS: Mucous, Urine 0 SEEN /hpf (<or=2+)
[2022-02-10 18:44] LABS: Color, Urine Yellow (Yellow); Glucose, Dipstick Normal (Normal); Hematocrit 32.6 % (37-47); Hemoglobin 10.6 g/dL (12.0-15.0); Ketone-Dipstick Negative (Negative); Leukocyte Esterase-Dipstick 500 /ul (Negative); Mean Corp Hgb Conc 32.5 g/dL (32-36); Mean Corpuscular Hgb 28.1 pg (27.0-32.0); Mean Corpuscular Volume 86.5 fL (81-99); Mean Platelet Vol. 10.7 fl (6.2-12.0); Nitrite-Dipstick Negative (Negative); Occult Blood-Urine 250 /ul (Negative); Platelet Count 210 K/mm3 (150-450); Protein-Dipstick 15 mg/dl (Negative); RBC Distribution Width CV 13.6 % (11.6-14.6); RBC Distribution Width SD 41.7 fl (35.1-43.9); Red Blood Count 3.77 M/mm3 (4.2-5.4); Urine Bilirubin Dipstick Negative (Negative); Urine Clarity Clear (Clear); Urine Urobilinogen Normal (Normal); White Blood Count 7.8 K/mm3 (4.4-11.0)
--- NOTE | 2022-02-10 18:45 | NURSING ---
1841-respiratory present to do ekg at bedside.
[2022-02-10 19:06] LABS: Bacteria RARE /hpf (None Seen); Red Blood Cells-Urine 10-25 SEEN /hpf (0-5); Squamous Epithelial Cells - UA 10-25 SEEN /hpf (5-10); White Blood Cells 10-25 SEEN /hpf (0-5)
[2022-02-10 19:35] LABS: ALB/GLOB Ratio 0.7 RATIO (0.9-2.4); AST(SGOT) 39 U/L (15-37); Alanine Aminotransfer ALT/SGPT 39 U/L (13-56); Albumin, Serum 2.5 g/dL (3.2-5.0); Alkaline Phosphatase 113 U/L (45-117); Anion Gap 6 (5-15); BUN 7 mg/dL (7-18); BUN/Creat Ratio 12.3 RATIO (10-20); Calcium,Total 8.4 mg/dL (8.5-10.1); Chloride 112 mmol/L (98-107); Creatinine, Serum 0.57 mg/dL (0.55-1.02); EST Glomerular Filtration Rate 143 mL/min (>60); Est Glom Filt Rate - Afr Amer 173 mL/min (>60); Globulin 3.7 g/dL (2.2-4.2); Glucose 91 mg/dL (74-106); Potassium 3.6 mmol/L (3.5-5.1); Protein, Total 6.2 g/dL (6.4-8.2); Sodium Level 142 mmol/L (136-145)
--- NOTE | 2022-02-10 19:55 | NURSING ---
RN speaking with and assessing patient. Head to toe assessment is grossly normal, patient reports having diarrhea associated with feeling anxious, denies headache, blurred vision, epigastric pain, nausea, and uti syptoms. Patient states she feels like she is becoming increasingly anxious and is wondering if she has anxiety. Patient states that when she has increased anxiety is when her blood pressures increase the 140/90 range. Patient reports taking her blood pressure medication routinely. Patient states that she does not have any suicidal thoughts or thoughts of harming her baby or any one else. Patient reports not being able to sleep well. Patient asking for anxiety medication and something to help her sleep. This RN called Arielle Peraza CNM and reported patient concerns, assessment, vital signs, labs, ekg, and medications. Discussed blood pressure 149/90 when feeling anxious and 128/83 when feeling more normal. The plan per Arielle Peraza CNM is to give patient vistaril 50mg po x1 and discharge patient to home, with mother to drive her. Also tomorrow the patient is to take her previously prescribed Nifedipine 30mg at the scheduled time, and call Arielle Peraza CNM one hour after taking medication and take blood pressure. Provider to give patient further instructions tomorrow. RN informed patient of plan. Patient understands and is agreeable to plan with no further questions.
[2022-02-10] MEDS: hydrOXYzine PAM 25 MG Capsule 50 MG PO (20:23)
--- NOTE | 2022-03-05 10:02 | OB.TRI.PN ---
Progress Notes Progress Note: Presented with elevated BP at home in the 150's. Denies any headache or visual changes. No chest pain or shortness of breath. Not sleeping well. Increased anxiety. Getting help from her mother but still getting up with baby all night. . Laboratory Studies: Laboratory Tests 02/10/22 02/10/22 02/10/22 Range/Units 18:30 18:30 18:30 WBC 7.8 (4.4-11.0) K/mm3 RBC 3.77 L (4.2-5.4) M/mm3 Hgb 10.6 L (12.0-15.0) g/dL Hct 32.6 L (37-47) % MCV 86.5 (81-99) fL MCH 28.1 (27.0-32.0) pg MCHC 32.5 (32-36) g/dL RDW Std Deviation 41.7 (35.1-43.9) fl RDW Coeff of Sanchez 13.6 (11.6-14.6) % Plt Count 210 (150-450) K/mm3 MPV 10.7 (6.2-12.0) fl Sodium 142 (136-145) mmol/L Potassium 3.6 (3.5-5.1) mmol/L Chloride 112 H (98-107) mmol/L Carbon Dioxide 24.0 (21.0-32.0) mmol/L Anion Gap 6 (5-15) BUN 7 (7-18) mg/dL Creatinine 0.57 (0.55-1.02) mg/dL Estim Creat Clear Calc 153.10 ml/min Est GFR (MDRD) Af Amer 173 (>60) mL/min Est GFR (MDRD) Non-Af 143 (>60) mL/min BUN/Creatinine Ratio 12.3 (10-20) RATIO Glucose 91 (74-106) mg/dL Calcium 8.4 L (8.5-10.1) mg/dL Total Bilirubin 0.40 (0.20-1.00) mg/dL AST 39 H (15-37) U/L ALT 39 (13-56) U/L Alkaline Phosphatase 113 (45-117) U/L Total Protein 6.2 L (6.4-8.2) g/dL Albumin 2.5 L (3.2-5.0) g/dL Globulin 3.7 (2.2-4.2) g/dL Albumin/Globulin Ratio 0.7 L (0.9-2.4) RATIO Urine Color Yellow (Yellow) Urine Clarity Clear (Clear) Urine pH 7.0 (5.0 - 8.0) Ur Specific [place] 1.010 (1.002-1.030) Urine Protein 15 H (Negative) mg/dl Urine Glucose (UA) Normal (Normal) mg/dl Urine Ketones Negative (Negative) mg/dl Urine Occult Blood 250 H (Negative) /ul Urine Nitrite Negative (Negative) Urine Bilirubin Negative (Negative) mg/dL Urine Urobilinogen Normal (Normal) mg/dl Ur Leukocyte Esterase 500 H (Negative) /ul Urine RBC 10-25 SEEN (0-5) /hpf Urine WBC 10-25 SEEN (0-5) /hpf Ur Squamous Epith Cells 10-25 SEEN (5-10) /hpf Urine Bacteria RARE (None Seen) /hpf Urine Mucus 0 SEEN (<or=2+) /hpf Assessment & Plan (1) Pre-eclampsia: PLAN: Plan 1) BP stable, no severe range 2) Vistaril for anxiety 3) Reviewed increased sleep if mother can help with baby 4) D/C home, follow up for blood pressure check in office
== END 2022-02-10 20:28 | disposition home or self-care (01) ==
PROVIDERS: Admitting Provider Advanced Practice Midwife; Visit Provider Advanced Practice Midwife
DX: O14.95 Unspecified pre-eclampsia, complicating the puerperium (principal); O99.345 Other mental disorders complicating the puerperium; F41.9 Anxiety disorder, unspecified
CPT/HCPCS: 80053; 81001; 85027; 93005; 94760; 99218; A4216; G0378

== ENCOUNTER 2022-02-12 13:15 | Outpatient (CLI) | payer MEDICAID, SELFPAY ==
[2022-02-12 13:26] VITALS: BMI 22.8
--- NOTE | 2022-02-12 15:20 | NURSING ---
Pt had talked to OB prior to arrival at 1315 that she had taken her blood pressure twice at home and they were 160's systolic. Janny españa was notified at 1345 that blood pressure were 129/82 and 121/76. order to take 2 more pressures and if normal may discharge home. next pressures 122/84, 133/84 and 125/87. pt has voiced she has been extremely anxious about being a mom. Doctor is aware of this and is to follow up in office tomorrow. pt breast are also engorged. She wanted to know what she could do for them since she cannot breastfeed. After talking with pt this nurse informed her that her current medications that she is taking is OK to breastfeed. Pt to go home and pump and then will be placing baby to breast. If she has any issues she was given [facility] number and may call in here as well. pt discharge home. remains in covid isolation room till her mom arrives to pick her up.
--- NOTE | 2022-04-11 17:36 | OB.TRI.HP_ITS ---
HPI - General HPI Narrative KEITH HIGH, is a 21 F who presents for elevated BP at home. Denies headache or visual changes. Was able to get sleep and vistaril is helping with anxiety. BP 150's at home. [facility] Medical History (Updated 03/05/22 @ 10:06 by Meagan Peraza CNM) History of depression History of nicotine vaping Pre-eclampsia SAB (spontaneous ) Home Medications vits,calcium no.78-iron fumarate-folic acid 29 mg-1 mg tablet (Prenatabs FA) 1 tab PO DAILY Check with primary doctor 01/12/22 [History Last Taken 02/06/22 08:00] iron 324 mg PO/SL DAILY Check with primary doctor 02/03/22 [History Last Taken 02/06/22 08:00] ibuprofen 600 mg tablet 600 mg PO Q6H PRN Pain 20 days #60 TABLETS 02/09/22 [Rx Last Taken 02/11/22 08:00] miscellaneous medical supply (Blood Pressure Cuff) #1 ea 02/09/22 [Rx Last Taken Unknown] nifedipine 30 mg tablet,extended release 24 hr (Procardia XL) 60 mg PO DAILY htn 02/10/22 [History Last Taken 02/12/22 10:30] hydroxyzine pamoate 50 mg capsule (Vistaril) 50 mg PO BID PRN Anxiety 02/12/22 [History Last Taken 02/12/22 08:00] Allergy/AdvReac Type Severity Reaction Status Date / Time cider vinegar Allergy Food Verified 02/10/22 18:06 Allergy Family History Grandfather Diabetes Hypertension Social History (Updated 11/08/20 @ 17:[address] Alea Soria MD) Smoking Status: Former smoker alcohol intake: never substance use type: does not use caffeine: Yes what type of physical activity do you participate in: none seatbelt use: always do you feel safe at home: Yes History 1 Elective abortions Hx Para 0 Spontaneous abortions Hx # Term Pregnancies Ectopic pregnancies Hx # Pregnancies Multiple births # of living children Assessment & Plan (1) Vaginal delivery: (2) Pre-eclampsia: PLAN: Plan 1) BP normal and no severe range BP 2) Reviewed signs and when to call 3) Check BP once a day and call if 160/110. 4) Follow up next day in office 5) D/C home
== END 2022-02-12 15:00 | disposition home or self-care (01) ==
LOC: WPOUT 13:19 → WP 13:20
PROVIDERS: Referring Provider Advanced Practice Midwife; Visit Provider Advanced Practice Midwife
DX: O14.90 Unspecified pre-eclampsia, unspecified trimester (principal); Z87.891 Personal history of nicotine dependence
CPT/HCPCS: 99218; G0378

== ENCOUNTER 2022-10-28 20:15 | Emergency (ER) | payer MEDICAID, SELFPAY ==
[2022-10-28 20:15] VITALS: BP 130/88; PULSE 134; RESP 16; TEMP 36.6; O2SAT 98; BMI 20.3
--- NOTE | 2022-10-28 21:30 | ED.RN ---
PT'S SO UP TO TRIAGE DESK TO ASK ABOUT PT BEING TAKEN BACK TO ED ROOM. STATES SHE'S BLEEDING AND HAVING CONTRACTIONS. PT OBSERVED SITTING IN WHEELCHAIR TEXTING ON PHONE, NO SIGNS OF DISTRESS EXCEPT OCCASIONAL TEARFULNESS. PT'S VITALS STABLE AT TRIAGE. NO VISIBLE BLEEDING, PT WEARING SHORTS. AMBULATING IN DEPT, SAT IN WHEELCHAIR AT DOORWAY SHE DECLINED SITTING IN WAITING ROOM.
--- NOTE | 2022-10-28 22:00 | ED.RN ---
CALLED PT FOR ROOM, PT NOT IN DEPT.
== END 2022-10-28 22:00 | disposition left against medical advice (07) ==
LOC: ED 22:08
DX: Z53.21 Procedure and treatment not carried out due to patient leaving prior to being seen by health care provider (principal)

== ENCOUNTER 2023-02-18 21:35 | Outpatient (CLI) | payer MEDICAID, SELFPAY ==
[2023-02-18] VITALS (11 sets, daily range): BP systolic 112–130; BP diastolic 61–76; PULSE 72–88; TEMP 37.2; O2SAT 83–98; BMI 23.6
[2023-02-18] MEDS: Lactated Ringers 1,000 ML 999 ML IV (22:15)
[2023-02-18 22:33] LABS: Record Kit Lot#, ROM+ K1374
[2023-02-18 22:35] LABS: Color, Urine Yellow (Yellow); Glucose, Dipstick Normal (Normal); Ketone-Dipstick Negative (Negative); Leukocyte Esterase-Dipstick 500 /ul (Negative); Nitrite-Dipstick Negative (Negative); Occult Blood-Urine Negative /ul (Negative); Protein-Dipstick Negative (Negative); Specific Gravity, Urine 1.015 (1.002-1.030); Urine Bilirubin Dipstick Negative (Negative); Urine Clarity Sl. Cloudy (Clear); Urine Urobilinogen Normal (Normal)
[2023-02-18 22:42] LABS: Bacteria 1+ /hpf (None Seen); Mucous, Urine 1+ /hpf (<or=2+); Red Blood Cells-Urine 0-5 SEEN /hpf (0-5); Squamous Epithelial Cells - UA 5-10 SEEN /hpf (5-10); White Blood Cells 10-25 SEEN /hpf (0-5)
[2023-02-18 22:50] LABS: ROM Internal Control Test YES-OK TO RESULT pt. (Internal QC); ROM Patient Test Negative (Negative)
[2023-02-18 23:06] LABS: Fetal Fibronectin POSITIVE
[2023-02-18] MEDS: NIFEdipine 10 MG Capsule PO (23:32)
[2023-02-18] MEDS: Acetaminophen 500 MG Tablet 1000 MG PO (23:34)
[2023-02-19] MEDS: Betamethasone/Betamethasone 30 MG/5 ML Vial 12 MG IM (01:07)
[2023-02-19 01:11] VITALS: BP 116/71; PULSE 88; TEMP 37; O2SAT 98
[2023-02-19] MEDS: Ondansetron 4 MG/2 ML Vial IV (01:29)
[2023-02-19] MEDS: 0.9% Saline Lock 10 ML Syringe IV (01:29)
[2023-02-19 05:48] VITALS: BP 115/63; PULSE 75; TEMP 36.4; O2SAT 99
[2023-02-19 07:28] VITALS: BP 118/68; PULSE 88; TEMP 36.4; O2SAT 98
--- NOTE | 2023-02-19 08:14 | OB.TRI.NOTE ---
HPI - General HPI Narrative KEITH HIGH, is a 22 F at 28 who presents with pelvic pressure, cramping and mucus. She had intercourse last night and began feeling cramping afterwards. Maternal Data Information HARPER Calculator Estimated Delivery Date Method Current WG Current Estimate 05/14/23 Manual 28w 0d PFSH PFS Medical History (Updated 02/19/23 @ 08:18 by Alexandra Lord CNM) History of depression History of nicotine vaping Pre-eclampsia SAB (spontaneous ) Home Medications vits,calcium no.78-iron fumarate-folic acid 29 mg-1 mg tablet (Prenatabs FA) 1 tab PO DAILY Check with primary doctor 01/12/22 [History Last Taken 02/06/22 08:00] iron 324 mg PO/SL DAILY Check with primary doctor 02/03/22 [History Last Taken 02/06/22 08:00] miscellaneous medical supply (Blood Pressure Cuff) #1 ea 02/09/22 [Rx Last Taken Unknown] aspirin 81 mg tablet,delayed release (Adult Aspirin Regimen) 162 mg PO DAILY 02/18/23 [History Last Taken Unknown] magnesium 200 mg tablet 200 mg PO DAILY 02/18/23 [History Last Taken Unknown] Allergy/AdvReac Type Severity Reaction Status Date / Time cider vinegar Allergy Food Verified 02/18/23 22:30 Allergy Family History Grandfather Diabetes Hypertension Social History (Updated 11/08/20 @ 17:[address] Alea Soria MD) Smoking Status: Former smoker alcohol intake: never substance use type: does not use caffeine: Yes what type of physical activity do you participate in: none seatbelt use: always do you feel safe at home: Yes History 1 Elective abortions Hx Para 0 Spontaneous abortions Hx # Term Pregnancies Ectopic pregnancies Hx # Pregnancies Multiple births # of living children ROS Eyes Eyes: Denies blurry vision Cardiovascular Cardiovascular: Reports none; Denies chest pain at rest, chest pain with activity or dizziness Respiratory/Chest Respiratory/Chest: Denies cough or dyspnea Gastrointestinal Gastrointestinal: Reports none and other; Denies diarrhea or vomiting Genitourinary Genitourinary: Denies dysuria Musculoskeletal Musculoskeletal: Reports none Integumentary Integumentary: Reports none; Denies rash Neurologic Neurologic: Denies dizziness, headache(s) or other visual disturbances Psychiatric Psychiatric: Reports none Physical Exam Const alert and no apparent distress General Appearance: cooperative Orientation / Consciousness: awake Exam Limitations: no limitations HEENT normocephalic Eyes General Eye: normal appearance of both eyes Neck full ROM Chest inspection of chest normal Resp normal respiratory effort and normal air movement Effort and Inspection: symmetric chest movement Auscultation: clear to auscultation bilaterally Cardio regular rate GI soft to palpation, non-tender and non-distended Inspection: and other Back/Spine normal ROM Extremity full ROM, normal capillary refill and no calf tenderness Skin no rashes or lesions noted Neuro oriented x3 and CN's II-XII intact bilaterally Psych mental status grossly normal NST FHR Rate Baby A Baseline: 130 Variability:: Moderate Accelerations:: 15 x 15 Decelerations:: None NST Reactive:: Yes FHR Category:: Category I Uterine Activity:: irregular Assessment & Plan (1) 28 weeks gestation of : (2) Uterine contractions: (3) Pelvic pressure in : PLAN: Plan CE- 0.5/40/-2- no change S/P IV bolus UA - positive for nitrates, bacteria, blood- culture sent Start Macrobid 100 mg PO BID x 7 days Celestone IM X 1 dose- will return to for second dose Denies any current cramps or contractions Feeling better- requesting discharge D/C home with follow up in office tomorrow DR. Espino notified and involved in plan of care
== END 2023-02-19 08:32 | disposition home or self-care (01) ==
LOC: WPOUT 21:40 → WP 21:40
PROVIDERS: Referring Provider Obstetrics & Gynecology; Visit Provider Obstetrics & Gynecology
DX: O99.891 Other specified diseases and conditions complicating pregnancy (principal); R25.2 Cramp and spasm; Z79.82 Long term (current) use of aspirin; Z87.891 Personal history of nicotine dependence; Z3A.28 28 weeks gestation of pregnancy; O47.03 False labor before 37 completed weeks of gestation, third trimester; R10.2 Pelvic and perineal pain
CPT/HCPCS: 96360; 59025; 59050; 81001; 82731; 84112; 87086; 87088; 96372; 99221; J7120; A4216; G0378; J0702; J2405

== ENCOUNTER 2023-03-20 19:37 | Outpatient (CLI) | payer MEDICAID, SELFPAY ==
[2023-03-20 19:55] VITALS: O2SAT 99
[2023-03-20 19:56] VITALS: BP 112/71; PULSE 85; TEMP 37.5
[2023-03-20 20:05] VITALS: BMI 24.0
[2023-03-20] MEDS: Acetaminophen 500 MG Tablet 1000 MG PO (21:14)
--- NOTE | 2023-03-21 02:37 | OB.TRI.HP_ITS ---
HPI - General General Date of Service: 03/20/23 HPI Narrative KEITH HIGH, is a 22 F who presents with cramps. Maternal Data Information HARPER Calculator Estimated Delivery Date Method Current WG Current Estimate 05/14/23 Manual 32w 2d Final HARPER: 05/14/23 Gestational age: 32&1 PFSH [facility] Medical History (Updated 03/21/23 @ 02:[address] Neptali Blackwell MD) History of depression History of nicotine vaping Pre-eclampsia SAB (spontaneous ) Home Medications vits,calcium no.78-iron fumarate-folic acid 29 mg-1 mg tablet (Prenatabs FA) 1 tab PO DAILY Check with primary doctor 01/12/22 [History Last Taken 03/19/23] iron 324 mg PO/SL DAILY Check with primary doctor 02/03/22 [History Last Taken 02/06/22 08:00] miscellaneous medical supply (Blood Pressure Cuff) #1 ea 02/09/22 [Rx Last Taken Unknown] aspirin 81 mg tablet,delayed release (Adult Aspirin Regimen) 162 mg PO DAILY 02/18/23 [History Last Taken 03/19/23] magnesium 200 mg tablet 200 mg PO DAILY 02/18/23 [History Last Taken 03/19/23] acetaminophen 500 mg tablet (Tylenol Extra Strength) 1,000 mg PO Q6H PRN pain 03/20/23 [History Last Taken 03/18/23] ondansetron HCl 4 mg tablet 4 mg PO PRN 03/20/23 [History Last Taken Unknown] Allergy/AdvReac Type Severity Reaction Status Date / Time cider vinegar Allergy Food Verified 03/20/23 20:00 Allergy Family History Grandfather Diabetes Hypertension Social History (Updated 11/08/20 @ 17:[address] Alea Soria MD) Smoking Status: Former smoker alcohol intake: never substance use type: does not use caffeine: Yes what type of physical activity do you participate in: none seatbelt use: always do you feel safe at home: Yes History 1 Elective abortions Hx Para 0 Spontaneous abortions Hx # Term Pregnancies Ectopic pregnancies Hx # Pregnancies Multiple births # of living children NST FHR Rate Baby A Baseline: 125 Variability:: Moderate Accelerations:: 15 x 15 Decelerations:: None NST Reactive:: Yes Uterine Activity:: Irregular Assessment & Plan (1) Threatened labor: QUALIFIERS: Trimester: third trimester Qualified Code(s): O47.03 - False labor before 37 completed weeks of gestation, third trimester PLAN: Plan Reactive NST
== END 2023-03-20 21:58 | disposition home or self-care (01) ==
LOC: WPOUT 19:43 → WP 19:44
PROVIDERS: Visit Provider Obstetrics & Gynecology
DX: O47.03 False labor before 37 completed weeks of gestation, third trimester (principal); Z3A.34 34 weeks gestation of pregnancy
CPT/HCPCS: 59025; 59050; 99221; G0378

== ENCOUNTER 2023-05-08 19:58 | Inpatient (IN) | payer MEDICAID, SELFPAY ==
[2023-05-08] VITALS (27 sets, daily range): BP systolic 115–152; BP diastolic 57–92; PULSE 73–128; TEMP 36.4–36.8; O2SAT 98–100; BMI 26.4
[2023-05-08 19:52] LABS: ROM Internal Control Test YES-OK TO RESULT pt. (Internal QC); Record Kit Lot#, ROM+ K1409
[2023-05-08 19:53] LABS: ROM Patient Test POSITIVE (Negative)
[2023-05-08] MEDS: LACTATED RINGERS 500 ML 999 ML IV (20:25)
[2023-05-08] MEDS: Lactated Ringers 1,000 ML 50 ML IV (20:27)
[2023-05-08 20:28] LABS: Absolute Lymphocyte Count 1.39 X10^3/uL (0.83-4.51); Absolute Neutrophil Count 9.1 X10^3/uL (2.0-7.7); Basophil# 0.03 X10^3/uL; Basophil% 0.3 % (0-1); Eosinophil# 0.02 X10^3/uL; Eosinophils% 0.2 % (0-5); Hematocrit 36.3 % (37-47); Hemoglobin 11.6 g/dL (12.0-15.0); Lymphocyte # 1.39 X10^3/ul (0.83-4.51); Lymphocyte % 12.1 % (19-41); Mean Corpuscular Volume 87.5 fL (81-99); Mean Platelet Vol. 11.6 fl (6.2-12.0); Monocyte# 0.87 X10^3/uL; Monocyte% 7.6 % (0-10); NRBC Flagged by Analyzer 0 % (0-5); Neutrophil # 9.12 X10^3/uL (2.7-7.7); Neutrophil % 79.2 % (47-70); Platelet Count 167 K/mm3 (150-450); RBC Distribution Width CV 13.9 % (11.6-14.6); Red Blood Count 4.15 M/mm3 (4.2-5.4); White Blood Count 11.5 K/mm3 (4.4-11.0)
[2023-05-08 20:42] LABS: AST(SGOT) 12 U/L (15-37); Alanine Aminotransfer ALT/SGPT 12 U/L (13-56); Creatinine, Serum 0.49 mg/dL (0.55-1.02); EST Glomerular Filtration Rate 169 mL/min (>60); Est Glom Filt Rate - Afr Amer 204 mL/min (>60); Estimated Creatinine Clearance 176.61 ml/min; Uric Acid 5.9 mg/dL (2.6-6.0)
[2023-05-08] MEDS: fentaNYL-bupivacaine (epidural) 100 ML BAG EPIDURAL (21:00)
[2023-05-08 21:03] LABS: Syphilis Antibodies Non-reactive
[2023-05-08 21:09] LABS: Protein, Urine (Random) < 6.0 mg/dL (<11.9)
[2023-05-08] MEDS: Ondansetron 4 MG/2 ML Vial IV (21:59)
[2023-05-09] VITALS (13 sets, daily range): BP systolic 106–149; BP diastolic 58–94; PULSE 59–109; RESP 16; TEMP 36.1–36.7; O2SAT 97–100
[2023-05-09] MEDS: Oxytocin 15 Units/NS 250ml 15 UNITS/250 ML IV.SOLN 83 UNITS IV (01:24)
[2023-05-09] MEDS: Lidocaine 1% (20 ml mdv) 20 ML Vial INFILT (01:30)
--- NOTE | 2023-05-09 01:45 | HP.PCM.OB_ITS ---
HPI - General General Date of Admission: 05/08/23 Date of Service: 05/08/23 HPI Narrative KEITH HIGH, is a 22 F who presents with LO anc ctxs. Maternal Data Information HARPER Calculator Estimated Delivery Date Method Current WG Current Estimate 05/14/23 Manual 39w 2d [facility] Medical History (Updated 05/09/23 @ 01:[address] Neptali Blackwell MD) Diarrhea during History of nicotine vaping SAB (spontaneous ) Home Medications vits,calcium no.78-iron fumarate-folic acid 29 mg-1 mg tablet (Prenatabs FA) 1 tab PO DAILY Check with primary doctor 01/12/22 [History Last Taken 05/05/23 22:00] iron 324 mg PO/SL DAILY Check with primary doctor 02/03/22 [History Last Taken 02/06/22 08:00] miscellaneous medical supply (Blood Pressure Cuff) #1 ea 02/09/22 [Rx Last Taken Unknown] aspirin 81 mg tablet,delayed release (Adult Aspirin Regimen) 162 mg PO DAILY 02/18/23 [History Last Taken 05/05/23] magnesium 200 mg tablet 200 mg PO DAILY 02/18/23 [History Last Taken 05/05/23 22:00] Allergy/AdvReac Type Severity Reaction Status Date / Time cider vinegar Allergy Food Verified 05/08/23 19:51 Allergy Family History Grandfather Diabetes Hypertension Social History Smoking Status: Former smoker alcohol intake: never substance use type: does not use caffeine: Yes what type of physical activity do you participate in: none seatbelt use: always do you feel safe at home: Yes History 1 Elective abortions Hx Para 1 Spontaneous abortions Hx # Term Pregnancies Ectopic pregnancies Hx # Pregnancies Multiple births # of living children Vital Signs Vital Signs Vital Signs: 05/08/23 14:31 05/08/23 14:31 05/08/23 14:31 Temperature Temperature Source Temporal Pulse Rate 85 Blood Pressure 133/92 H BP Systolic 133 BP Diastolic 92 Pulse Ox 05/08/23 14:31 05/08/23 14:31 05/08/23 15:20 Temperature 97.6 F L Temperature Source Pulse Rate Blood Pressure 136/75 H BP Systolic 136 BP Diastolic 75 Pulse Ox 98 05/08/23 15:20 05/08/23 19:33 05/08/23 19:33 Temperature Temperature Source Pulse Rate 81 97 Blood Pressure 152/89 H BP Systolic 152 BP Diastolic 89 Pulse Ox 05/08/23 19:32 05/08/23 19:32 05/08/23 19:51 Temperature 98.3 F Temperature Source Temporal Pulse Rate Blood Pressure 139/86 H BP Systolic 139 BP Diastolic 86 Pulse Ox 05/08/23 19:51 05/08/23 20:50 05/08/23 20:50 Temperature Temperature Source Pulse Rate 103 H 85 Blood Pressure BP Systolic BP Diastolic Pulse Ox 100 05/08/23 20:55 05/08/23 20:55 05/08/23 20:55 Temperature Temperature Source Pulse Rate 121 H 104 H Blood Pressure 132/78 H BP Systolic 132 BP Diastolic 78 Pulse Ox 05/08/23 20:55 05/08/23 20:57 05/08/23 20:57 Temperature Temperature Source Pulse Rate 107 H Blood Pressure 133/79 H BP Systolic 133 BP Diastolic 79 Pulse Ox 99 05/08/23 21:00 05/08/23 21:00 05/08/23 21:02 Temperature Temperature Source Pulse Rate 110 H Blood Pressure 128/62 H BP Systolic 128 BP Diastolic 62 Pulse Ox 99 05/08/23 21:02 05/08/23 21:05 05/08/23 21:05 Temperature Temperature Source Pulse Rate 116 H 84 Blood Pressure BP Systolic BP Diastolic Pulse Ox 98 05/08/23 21:07 05/08/23 21:07 05/08/23 21:10 Temperature Temperature Source Pulse Rate 88 118 H Blood Pressure 133/69 H BP Systolic 133 BP Diastolic 69 Pulse Ox 05/08/23 21:10 05/08/23 21:12 05/08/23 21:12 Temperature Temperature Source Pulse Rate 93 Blood Pressure 143/70 H BP Systolic 143 BP Diastolic 70 Pulse Ox 99 05/08/23 21:15 05/08/23 21:15 05/08/23 21:18 Temperature Temperature Source Pulse Rate 128 H Blood Pressure 121/72 H BP Systolic 121 BP Diastolic 72 Pulse Ox 100 05/08/23 21:18 05/08/23 21:20 05/08/23 21:20 Temperature Temperature Source Pulse Rate 74 111 H Blood Pressure BP Systolic BP Diastolic Pulse Ox 100 05/08/23 21:22 05/08/23 21:22 05/08/23 21:25 Temperature Temperature Source Pulse Rate 97 108 H Blood Pressure 119/57 L BP Systolic 119 BP Diastolic 57 Pulse Ox 05/08/23 21:25 05/08/23 21:27 05/08/23 21:27 Temperature Temperature Source Pulse Rate 112 H Blood Pressure 115/60 BP Systolic 115 BP Diastolic 60 Pulse Ox 99 05/08/23 21:30 05/08/23 21:30 05/08/23 21:32 Temperature Temperature Source Pulse Rate 89 Blood Pressure 122/58 H BP Systolic 122 BP Diastolic 58 Pulse Ox 100 05/08/23 21:32 05/08/23 21:35 05/08/23 21:35 Temperature Temperature Source Pulse Rate 100 94 Blood Pressure BP Systolic BP Diastolic Pulse Ox 99 05/08/23 21:38 05/08/23 21:38 05/08/23 22:00 Temperature Temperature Source Temporal Pulse Rate 96 Blood Pressure 117/79 BP Systolic 117 BP Diastolic 79 Pulse Ox 05/08/23 22:00 05/08/23 22:46 05/08/23 22:46 Temperature 97.8 F Temperature Source Pulse Rate 73 Blood Pressure 141/82 H BP Systolic 141 BP Diastolic 82 Pulse Ox 05/08/23 23:57 05/08/23 23:57 Temperature Temperature Source Pulse Rate 74 Blood Pressure 130/77 H BP Systolic 130 BP Diastolic 77 Pulse Ox Weight Weight: 169 lb Body Mass Index (BMI) 26.4 Labs Labs Labs: Blood Type O POSITIVE Antibody Screen NEGATIVE Hct 36.3 % (37-47) L Hgb 11.6 g/dL (12.0-15.0) L Obstetrics Ultrasound Syphilis Total Ab Non-reactive Rhogam given: No Assessment & Plan (1) 39 weeks gestation of : COMMENT: @ 39&2 PLAN: Plan Patient admitted in labor & proceeded to have a GBS negative Mildly elevated BP's on admission - preE labs normal. Suspect gestational hypertension
--- NOTE | 2023-05-09 01:50 | EX.PCM.OBRPT ---
Maternal Data Information HARPER Calculator Estimated Delivery Date Method Current WG Current Estimate 05/14/23 Manual 39w 2d Vaginal Delivery Maternal Presentation Maternal Presentation: Active Labor and Spontaneous Rupture of Membranes Operative Information Date of Procedure: 05/09/23 Pre-Operative Diagnosis: (1) Labor Post-Operative Diagnosis: Same Surgery / Procedure Performed: Spontaneous Vaginal Delivery Type of Anesthesia: Epidural and Local with 1% Lidocaine Estimated Blood Loss: 400ml Findings Description of Procedure: Patient prepped & draped when C/C/+2. She pushed well to deliver the head. head gently guided to allow delivery of anterior and posterior shoulders. No excess traction placed on head. Body delivered and 3VC clamped & cut in delayed fashion. Placenta delivered with gentle traction and good uterine tone obtained. Presentation: DANIELA Amniotic Membrane Rupture Type: Spontaneous Amniotic Fluid Description: Clear Placental Delivery Description: Expressed Placenta Disposition: [facility] Specimen(s) Removed: Placenta Cord Vessel Description: 3 Vessels Cord Entanglement: None A Gender: Male (1 minute): 7 (5 minute): 8 Delayed Cord Clamping: Yes Post Vaginal Delivery Medications Given After Delivery: IV Pitocin and IM Pitocin Episiotomy Description: None Laceration: 1st degree (right labial (minora) - repaired with 3-0 vicryl) Complication Complications: None
[2023-05-09] MEDS: miSOPROStol 200 MCG Tablet 1000 MCG RC (01:51)
[2023-05-09] MEDS: Oxytocin 10 UNITS/ML Vial IM (01:57)
[2023-05-09] MEDS: Benzocaine/Lanolin/Aloe Vera 1 SPRAY EACH TOPICAL (06:13)
[2023-05-09] MEDS: Ibuprofen 600 MG Tablet PO ×2 (08:54→19:22)
[2023-05-09] MEDS: Acetaminophen 500 MG Tablet 1000 MG PO (13:14)
[2023-05-10 01:00] VITALS: BP 106/46; PULSE 58; RESP 16; TEMP 36; O2SAT 100
[2023-05-10] MEDS: Ibuprofen 600 MG Tablet PO (03:12)
[2023-05-10 03:14] VITALS: BP 113/63; PULSE 62; RESP 16; TEMP 36.3; O2SAT 99
[2023-05-10 08:50] VITALS: BP 104/60; PULSE 61; RESP 16; TEMP 36.6; O2SAT 98
--- NOTE | 2023-05-10 10:22 | PCM.PN.OB ---
Subjective Subjective Pt is doing well. Desires discharge home. She has no complaints. Ambulating and voiding without difficulty. Tolerating a diet without nausea or vomiting. Lochia is normal. Pain is well controlled. She denies chest pain, shortness of breath, lightheadedness, dizziness, headaches. Objective Data Objective Data Vital Signs: Vital Signs Temp Pulse Resp BP Pulse Ox O2 Del Method 97.9 F 61 16 104/60 98 Room Air 05/10/23 08:50 05/10/23 08:50 05/10/23 08:50 05/10/23 08:50 05/10/23 08:50 05/10/23 08:50 Oxygen Delivery Method Room Air Weight: 169 lb Body Mass Index (BMI) 26.4 Intake & Output: Intake and Output for Last 24 Hours 05/08/23 05/09/23 05/10/23 23:59 23:59 23:59 Intake Total 500 / 500 477.5 / 477.5 Output Total 100 / 100 400 / 400 Balance 400 / 400 77.5 / 77.5 Lab / Micro Data 05/08/23 20:10 05/08/23 20:10 Physical Exam Const alert and no apparent distress Constitutional Narrative: up washing pump parts General Appearance: comfortable Assessment & Plan (1) Vaginal delivery: PLAN: Patient doing well and desires discharge home. Meeting milestones for discharge. Discharge instructions reviewed with follow-up in the office.
--- NOTE | 2023-05-10 10:23 | DCINST_ITS ---
Discharge Instructions Diet Discharge Diet: No restrictions Activity Discharge Activity: May Drive and May Shower May resume sexual activity in: 6 weeks (no soaking in water, intercourse or tampons) Weight Bearing Status: Weight bearing as tolerated Lifting Restrictions: nothing heavier than baby Dressing / Incision Call your doctor if you observe: Fever of 101 or Higher, Coldness, Increased Pain, Numbness or Tingling, Change in Color, Inability to urinate, Inability to have a bowel movement, Using more than 1 pad per hour, Shortness of breath, Dizziness, Fainting spells, Swelling in the ankles, Chest pain, Increased palpitations (irregular heartbeat), Calf discomfort and Uncontrolled pain Follow Up Care When: 1-2 weeks early 6 week exam Test Results: Test results from this visit will be discussed in further detail at your follow- up appointment, if applicable. Discharge Plan Admission Admit Date/Time: 05/08/23 19:58 Primary Reason for Your Visit: delivery Attending Provider: Neptali Blackwell Primary Care Provider: Kristyn PhysicianCiera Primary Instructions Patient Instructions: After a Vaginal Discharge Orders/Prescriptions Prescriptions: Continued Prenatabs FA 29-1 mg Tablet 1 tab PO DAILY Discontinued iron 324 mg PO/SL DAILY aspirin [Adult Aspirin Regimen] 81 mg tablet,delayed release (DR/EC) 162 mg PO DAILY magnesium 200 mg tablet 200 mg PO DAILY No Action (DME) Blood Pressure Cuff Misc See Rx Instructions .Route Qty: 1 0RF Rx Instructions: As directed Referrals / Follow Up: Care Physician,Ciera Primary [Primary Care Provider] - Disposition Disposition (needs filled in before D/C Order can be placed): Home, Self Care
--- NOTE | 2023-05-10 12:47 | CASEMGMT ---
Social Work Assessment Labor and Delivery Unit Patient Address:[address] [place] [address] Phone number: [phone] Date of Referral: 05/09/23 Time of Referral:? 1733 Referred By: Neptali Blackwell Date of Intervention: ?05/10/23? Time of Intervention:? 1020 Reason for Referral:? flat affect, hx of anxiety Sw completed chart review and acknowledges social work consult due to maternal history of anxiety and mother of baby (MOB- Kathy) presenting with flat affect. Sw presented to bedside and introduced self to MOB and father of baby (FOB- Pamela Diana). Sw explained reason for sw involvement and completed psychosocial assessment. Sw asked FOB to step out of room momentarily in order for MOB to complete [place] Depression Scale. FOB left room respectfully and willingly. History obtained from: medical records and mother of baby (MOB)?and FOB?? Household composition: Parents report that they are currently residing with paternal grandparents. Patient's parent/guardian status:? ?MOB states that she and FOB have been together for one year. They met while working together. While meeting with MOB privately she denies any concerns regarding domestic violence or intimate partner violence. Medical History: MOB is 4, para 1- now 2 following delivery of baby. MOB received care with [facility] during . MOB delivered baby boy via vaginal delivery at 39 weeks gestation. Baby boy, named Ren Burgess, was born weighing 7lb 8oz and his apgars were 7 and 8 at one and five minutes of life respectfully. Both parents have been engaged in providing hands on care to baby. Baby will be followed by Dr. Bonilla at [facility] for pediatrics. Educational Status:? Both parents graduated from high school, no college education. Parents deny and reading, learning or comprehension concerns. Financial Status: Neither parent is employed at this time. Supplies: MOB states that she has obtained all necessary baby supplies including: car seat, safe sleep space, clothes, diapers, wipes and feeding supplies. Childcare/Caregiver(s):? MOB and FOB will be primary caregivers to baby post discharge. MOB states that when both parents are working maternal grandma will provide childcare. Transportation:?? Both parents have drivers license and reliable means of transportation. No transportation barriers at this time. Programs/Agencies Involved: ??ORQUIDEA is connected to insurance through [employer] as well as WIC. MOB states that she is going to apply for food stamps. Children Services/Legal Issues:??? Parents deny any history with Children Services. No issues or concerns warranting referral at this time. Behavioral Health Issues: ??Mental Health History:??FOJose denies mental health history. ORQUIDEA states that she has been diagnosed with anxiety, depression and was working with her OBGYN to get diagnosed with Borderline Personality disorder. MOB states that she experienced depression following the of her daughter. MOB states that she believes that she struggled because prior to that delivery MOB also experienced a miscarriage. MOB states that when her daughter was born she had a hard time bonding with her. ORQUIDEA reports that now she has a good adams/ relationship with her daughter. ORQUIDEA completed an [place] Depression Scale and her score was a 0. ? Substance Use History: ORQUIDEA reports that she does have history of marijuana use- she states that the last time she used was for her 22st birthday, and then got three days later. MOB states that she did not use any substances during . FOJose denies substance use. ?? Family History: ORQUIDEA reports that her father is a drug addict, but she has not had contact with him for years. ORQUIDEA also states that her mother has history of alcoholism/ drug use but has been in recovery for a long time and is sober. ? Drug Screens: No drug screens observed for current admission. ORQUIDEA was positive for THC when her daughter was born 02/07/22. ? Family/Social Stressors:? MOB denies and concerns or stressors at this time. Support Systems: ORQUIDEA reports that her mom and paternal grandma are their biggest supports. Depression/Shaken Baby/Safe Sleeping:? Kunal educated parents on signs and symptoms of baby blues and depression. Kunal encouraged parents to talk about how DONG can be supportive for MOB should she struggle with one or both of these issues. ORQUIDEA states that she is feeling much better following the of his baby compared to how she felt after her daughter was born. Kunal educated parents on shaken baby prevention and ABCs of safe sleep. Parents expressed understanding. Kunal provided MOB with list of local community resources including counseling supports. MOB was receptive. ASSESSMENT:? MOB and baby admitted following labor and delivery. MOB did appear with flat affect, however she smiled and laughed several times throughout psychosocial assessment. MOB and FOB appear to be good supports of one another. Both parents had been active with hands on care of . Parents were aware of signs and symptoms of baby blues and depression/ anxiety to be on the look out for. MOB was open and talkative with sw. MOB with history of substance use, but none during pregancy. PLAN:? MOB and baby to be discharged on this date once medically cleared. ?No other services requested or indicated. Mera Ross, [employer] DEVELOPER, LATHE OPERATOR
== END 2023-05-10 11:30 | disposition home or self-care (01) | DRG 560 ==
LOC: WPOUT 20:00 → WP 20:00
PROVIDERS: Admitting Provider Obstetrics & Gynecology; Referring Provider Obstetrics & Gynecology; Visit Provider Obstetrics & Gynecology
DX: O13.4 Gestational [pregnancy-induced] hypertension without significant proteinuria, complicating childbirth (principal); Z37.0 Single live birth; O70.0 First degree perineal laceration during delivery; Z3A.39 39 weeks gestation of pregnancy; Z79.82 Long term (current) use of aspirin; Z87.891 Personal history of nicotine dependence
CPT/HCPCS: 59025; 59050; 82565; 82570; 84112; 84156; 84450; 84460; 84550; 85025; 86780; 86850; 86900; 86901; 99221; J7120; G0378; J2405

== ENCOUNTER 2023-07-09 20:07 | Emergency (ER) | payer MEDICAID, SELFPAY ==
[2023-07-09 20:08] VITALS: BP 118/97; PULSE 135; RESP 16; TEMP 36.5; O2SAT 99; BMI 23.1
--- NOTE | 2023-07-09 20:46 | EX.ED.DYSGE1 ---
HPI History of Present Illness Chief Complaint: Nausea/Vomiting/Diarrhea Detail of Chief Complaint: Vomiting and diarrhea Informant: patient Narrative Narrative: Patient presents with vomiting and diarrhea that started around 2 PM today. Patient states that multiple family members are ill and she thinks it could be related to shrimp Yohan that day 3 days ago. Patient states that her child and her also sick with similar illness as well as her parents and other family members. Patient has no medical history otherwise. She had no fever. She describes abdominal cramping. She is thrown up more than 12 times and has had 5-6 episodes of diarrhea. [facility] Medical History (Updated 07/09/23 @ 21:[address] Justin Mcmahon, DO) Diarrhea during History of nicotine vaping SAB (spontaneous ) Home Medications vits,calcium no.78-iron fumarate-folic acid 29 mg-1 mg tablet (Prenatabs FA) 1 tab PO DAILY Check with primary doctor 01/12/22 [History Last Taken 05/05/23 22:00] miscellaneous medical supply (Blood Pressure Cuff) #1 ea 02/09/22 [Rx Last Taken Unknown] dicyclomine 10 mg capsule 20 mg (2 x 10 mg) PO TIDAC #20 CAPSULES 07/09/23 [Rx Last Taken Unknown] loperamide 2 mg capsule (Imodium A-D) 2 mg PO Q6H PRN loose stool #14 caps 07/09/23 [Rx Last Taken Unknown] ondansetron 4 mg disintegrating tablet 4 mg PO Q8H PRN PRN Nausea #10 tabs 07/09/23 [Rx Last Taken Unknown] Allergy/AdvReac Type Severity Reaction Status Date / Time cider vinegar Allergy Food Verified 07/09/23 20:10 Allergy Family History Grandfather Diabetes Hypertension Social History Smoking Status: Former smoker alcohol intake: never substance use type: does not use caffeine: Yes what type of physical activity do you participate in: none seatbelt use: always do you feel safe at home: Yes ROS ROS ED Review of Systems ROS Unobtainable: other Constitutional Constitutional ED: Reports lethargy; Denies chills, fever(s), sweats or weight loss Eyes Eyes: Denies blurry vision, change in vision or diplopia ENT ENT ED: Denies rhinorrhea or sore throat Cardiovascular Cardiovascular: Denies chest pain, orthopnea or racing heartbeat Respiratory/Chest Respiratory/Chest: Denies dyspnea, dyspnea on exertion, orthopnea or sputum Gastrointestinal Gastrointestinal: Reports abdominal pain, nausea and vomiting; Denies diarrhea Genitourinary Genitourinary ED: Denies dysuria, hematuria or urinary frequency Musculoskeletal Musculoskeletal: Denies arthralgias, back pain, myalgias or neck pain Integumentary Denies abscess, Abrasions or rash Neurologic Neurologic: Denies headache(s) or weakness Psychiatric Psychiatric: Denies anxiety, depression or suicidal thoughts Endocrine Endocrinology: Denies polydipsia, polyphagia or polyuria Hematologic/Lymphatic Hematologic/Lymphatic: Denies easy bleeding, easy bruising or lymphadenopathy Allergic/Immunologic Allergic/Immunologic ED: Denies mouth swelling, tongue swelling or urticaria EXAM Physical Exam Const Vital Signs: 07/09/23 20:08 Temperature 97.7 F L Temperature Source Temporal Pulse Rate 135 H Respiratory Rate 16 Blood Pressure 118/97 H Blood Pressure Mean 104 Pulse Ox 99 Oxygen Delivery Method Room Air Positive well nourished and well developed General Appearance ED: well developed and NAD HEENT Reports TM's clear and moist mucous membranes normocephalic and atraumatic; Negative for trauma or tenderness Tympanic Membrane ED: Yes TM's clear Eyes PERRL and EOMs intact bilaterally General Eye ED: Negative for pale conjunctiva or scleral icterus Neck no lymphadenopathy, supple and no JVD General: Negative for tenderness Chest Wall inspection of chest normal and palpation of chest normal Chest: Negative for tenderness Resp normal respiratory effort and clear to auscultation bilaterally Effort and Inspection: Negative for respiratory distress or pain with movement Auscultation: Negative for rhonchi, wheezes or diminished lung sounds Cardio regular rate, regular rhythm, S1 normal heart sound, S2 normal heart sound and no murmurs Peripheral Pulses: pulses 2+ throughout GI normal to inspection, nondistended, normoactive bowel sounds, soft to palpation, non-tender, non-distended and no masses Back/Spine no CVA tenderness and no thoracic nor lumbar tenderness Extremity normal to inspection General Extremety ED: Negative for edema General Extremity: Negative for edema Neuro oriented x3, CN's II-XII intact bilaterally, no sensory deficits noted and gait normal Sensorium / Orientation: awake, alert, oriented to person, oriented to place and oriented to time Motor Exam: strength 5/5 throughout and strength abnormal Psych mental status grossly normal Skin no rashes or lesions noted and no wounds MDM MDM MDM Narrative Medical decision making narrative: Patient presents with vomiting and diarrhea that started earlier today. Complaining of abdominal cramping. Entire family ill. IV line established. She was given a liter and a second fluid bolus. She was medicated with Zofran as well as Bentyl and Imodium. She felt improved after treatment. She will be given a p.o. challenge. CBC with differential obtained showed a normal white count of 7.8 with hemoglobin of 11.9 and platelet counts of 232. Chemistry is unremarkable. Lab Data Attestation: I reviewed the patient's lab results. Labs: Laboratory Results - last 24 hr 07/09/23 20:50 WBC 7.8 RBC 4.35 Hgb 11.9 L Hct 37.1 MCV 85.3 MCH 27.4 MCHC 32.1 RDW Std Deviation 43.7 RDW Coeff of Sanchez 14.0 Plt Count 232 MPV 10.6 Immature Gran % (Auto) 0.400 Neut % (Auto) 86.1 H Lymph % (Auto) 5.8 L Redwood % (Auto) 6.8 Eos % (Auto) 0.6 Baso % (Auto) 0.3 Absolute Neuts (auto) 6.7 Absolute Lymphs (auto) 0.45 L Nucleated RBC % 0 Differential Comment SCANNED Sodium 140 Potassium 3.5 Chloride 109 H Carbon Dioxide 27.0 Anion Gap 4 L BUN 13 Creatinine 0.60 Estim Creat Clear Calc 138.85 Est GFR (MDRD) Af Amer 160 Est GFR (MDRD) Non-Af 132 BUN/Creatinine Ratio 21.5 H Glucose 92 Calcium 9.3 Discharge Plan Triage Chief Complaint: Nausea/Vomiting/Diarrhea ED Provider: Justin Mcmahon Dx/Rx/DC Orders Clinical Impression: Viral gastroenteritis Instructions: ED Gastroenteritis, Viral (Adult) Prescriptions: New ondansetron [ondansetron] 4 mg tablet,disintegrating 4 mg PO Q8H PRN PRN (Reason: Nausea) Qty: 10 0RF dicyclomine 10 mg capsule 20 mg PO TIDAC Qty: 20 0RF loperamide [Imodium A-D] 2 mg capsule 2 mg PO Q6H PRN (Reason: loose stool) Qty: 14 0RF No Action Prenatabs FA 29-1 mg Tablet 1 tab PO DAILY (DME) Blood Pressure Cuff Misc See Rx Instructions .Route Qty: 1 0RF Rx Instructions: As directed Primary Care Provider: Care Physician,No Primary Referrals: Christopher Geller MD [Med Staff - Active Staff] - 3-5 Days Care Physician,No Primary [Primary Care Provider] - Disposition Disposition: Home, Self Care
[2023-07-09] MEDS: 0.9% Normal Saline (1000mL) 1,000 ML 1000 ML IV (20:58)
[2023-07-09] MEDS: Dicyclomine 20 MG/2 ML Vial IM (20:58)
[2023-07-09] MEDS: Loperamide 2 MG Capsule 4 MG PO (20:59)
[2023-07-09 21:14] LABS: Absolute Lymphocyte Count 0.45 X10^3/uL (0.83-4.51); Absolute Neutrophil Count 6.7 X10^3/uL (2.0-7.7); Basophil# 0.02 X10^3/uL; Basophil% 0.3 % (0-1); Eosinophil# 0.05 X10^3/uL; Eosinophils% 0.6 % (0-5); Hematocrit 37.1 % (37-47); Hemoglobin 11.9 g/dL (12.0-15.0); Lymphocyte # 0.45 X10^3/ul (0.83-4.51); Lymphocyte % 5.8 % (19-41); Mean Corp Hgb Conc 32.1 g/dL (32-36); Mean Corpuscular Hgb 27.4 pg (27.0-32.0); Mean Corpuscular Volume 85.3 fL (81-99); Mean Platelet Vol. 10.6 fl (6.2-12.0); Monocyte# 0.53 X10^3/uL; Monocyte% 6.8 % (0-10); NRBC Flagged by Analyzer 0 % (0-5); Neutrophil % 86.1 % (47-70); POSITIVE DIFFERENTIAL YES; Platelet Count 232 K/mm3 (150-450); RBC Distribution Width SD 43.7 fl (35.1-43.9); Red Blood Count 4.35 M/mm3 (4.2-5.4); White Blood Count 7.8 K/mm3 (4.4-11.0)
[2023-07-09 21:18] LABS: Anion Gap 4 (5-15); BUN 13 mg/dL (7-18); BUN/Creat Ratio 21.5 RATIO (10-20); Calcium,Total 9.3 mg/dL (8.5-10.1); Chloride 109 mmol/L (98-107); EST Glomerular Filtration Rate 132 mL/min (>60); Est Glom Filt Rate - Afr Amer 160 mL/min (>60); Estimated Creatinine Clearance 138.85 ml/min; Glucose 92 mg/dL (74-106); Potassium 3.5 mmol/L (3.5-5.1); Sodium Level 140 mmol/L (136-145)
[2023-07-09 21:19] LABS: Differential Indicated SCAN CRITERIA MET
[2023-07-09 21:31] LABS: Differential Comment SCANNED
[2023-07-09] MEDS: Ondansetron 4 MG/2 ML Vial IV (21:47)
== END 2023-07-09 22:13 | disposition home or self-care (01) ==
PROVIDERS: Emergency Provider Emergency Medicine; Visit Provider Emergency Medicine
DX: A08.4 Viral intestinal infection, unspecified (principal); Z87.891 Personal history of nicotine dependence
CPT/HCPCS: 80048; 85025; 96361; 96372; 96374; 99283; J7030; A4216; J2405

== ENCOUNTER 2023-09-12 21:13 | Emergency (ER) | payer MEDICAID, SELFPAY ==
[2023-09-12 21:14] VITALS: BP 151/72; PULSE 75; RESP 16; TEMP 36.4; O2SAT 100; BMI 24.2
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
[2023-09-12] MEDS: Silver Sulfadiazine 1% Crm 50 gm Bottle 1 APPLIC TOPICAL (21:37)
[2023-09-12 21:42] VITALS: BP 146/78; PULSE 73; RESP 16; TEMP 36.4; O2SAT 100
== END 2023-09-12 21:43 | disposition home or self-care (01) ==
PROVIDERS: Emergency Provider Student in an Organized Health Care Education/Training Program; Visit Provider Student in an Organized Health Care Education/Training Program
DX: T20.55XA Corrosion of first degree of scalp [any part], initial encounter (principal); Z87.891 Personal history of nicotine dependence; T20.511A Corrosion of first degree of right ear [any part, except ear drum], initial encounter; T20.512A Corrosion of first degree of left ear [any part, except ear drum], initial encounter; T65.6X1A Toxic effect of paints and dyes, not elsewhere classified, accidental (unintentional), initial encounter
CPT/HCPCS: 99283

== ENCOUNTER 2023-09-14 21:17 | Emergency (ER) | payer MEDICAID, SELFPAY ==
[2023-09-14 21:19] VITALS: BP 124/78; PULSE 94; RESP 18; TEMP 36.7; O2SAT 99; BMI 24.8
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
[2023-09-14] MEDS: Oxycodone/Apap 5/325 Tablet PO (22:25)
[2023-09-14] MEDS: Penicillin Vk 250 MG Tablet 500 MG PO (22:25)
[2023-09-14 22:29] VITALS: BP 108/62; PULSE 76; RESP 15; TEMP 36.6; O2SAT 100
--- OUTSIDE RECORDS SUMMARY | 2023-09-14 22:29 | XMS RPT_ITS | CCD ---
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 routine visit. SIGNS AND SYMPTOMS OF LABOR 1. Contractions every 10 minutes or more often 2. Clear, pink, or brownish fluid (water) leaking from vagina 3. Feeling that baby is pushing down, pressure 4. Low, dull backache 5. Cramps that feel like a period 6. Cramps with or without diarrhea If you notice any of the above symptoms, contact our office at [phone] and ask to speak with a nurse. After hours, you can call doctors registry at [phone] OR call [facility] at [phone] and ask to have the doctor communications electrician supervisor paged. If you consider this an emergency, dial 9-1-3 or go to your nearest emergency department. NEED HELP? Are you dealing with a violent or abusive relationship? Are you a victim of rape or sexual assult? Call [facility] ([place]) 24 hour Crisis Hotline: 711.667.6818 or 744-725-1773. MANUAL Your Guide to a Healthy manual is now on-line. Visit [email or web address] to download your free copy documented in this encounter [facility] 02-16-2023 Note HNO ID: [id number] Author: Robert Avery APRN.OPTICAL LABORATORY TECHNICIAN Service: ? Author Type: Nurse Practitioner Type: Progress Notes Filed: 02/22/2023 3:48 PM Note Text: HPI- pt presents s/p insect bite to lower right leg three days ago; has noted redness, tenderness, inflammation and + pus drainage at this site; has been applying localized wound care no fevers, systemic complaints PAST MEDICAL HISTORY Diagnosis Date Anemia Eating disorder depression anxiety and depression depression Preeclampsia Recurrent UTI No past surgical history on file. FAMILY HISTORY Problem Relation Age of Onset Hypertension Mother Bipolar disorder Mother Scoliosis Mother Emphysema Mother Anxiety disorder Mother No Known Problems Father No Known Problems Sister No Known Problems Sister No Known Problems Sister No Known Problems Brother No Known Problems Brother No Known Problems Brother No Known Problems Maternal Grandmother Diabetes Maternal Grandfather Arthritis Maternal Grandfather Hypertension Maternal Grandfather No Known Problems Paternal Grandmother No Known Problems Paternal Grandfather No Known Problems Daughter Social History Tobacco Use Smoking status: Never Smokeless tobacco: Never Vaping Use Vaping Use: Former Quit date: 09/25/2022 Substances: Nicotine Substance Use Topics Alcohol use: Not Currently Comment: occasionally Drug use: Never Current Outpatient Medications Medication Sig magnesium oxide (MAG-OX) 400 mg (241.3 mg magnesium) tablet Take 1 tablet by mouth once daily. vit/iron fum/folic ac ( 1 + 1 ORAL) Take by mouth. terconazole (TERAZOL 7) 0.4 % vaginal cream Use 1 Applicator vaginally daily at bedtime for 7 days. aspirin, enteric coated (ASPIRIN, ENTERIC COATED) 81 mg EC tablet Take 2 tablets by mouth once daily. ondansetron (ZOFRAN) 4 mg tablet Take 1 tablet by mouth every 8 hours as needed for nausea/vomiting. No current facility-administered medications for this visit. Allergies: Vinegar Rash PHYSICAL EXAM: BP 114/69 Pulse 81 Temp 36.7 ?C (98 ?F) (Temporal) Resp 16 Wt 68.8 kg (151 lb 9.6 oz) LMP 08/07/2022 (Exact Date) SpO2 96% BMI 24.10 kg/m? General: 22 yo female in NAD right leg- + dime size area mid lower leg that is red, tender, mildly inflamed; no drainage; no stinger noted ASSESSMENT/PLAN: 1. Cellulitis of right leg without foot - ICD9: 682.6, ICD10: L03.115 (primary diagnosis) localized - MUPIROCIN 2 % TOPICAL OINTMENT 2. Reaction to insect bite - ICD9: 919.4, E906.4, ICD10: W57.XXXA - MUPIROCIN 2 % TOPICAL OINTMENT Do not scratch and break the skin; keep area clean and dry Wound care discussed; Cool compresses as needed to site Tylenol or NSAIDS as needed for pain control Avoid exposure to habitat if known; wear clothing that covers/protect skin/ use insect repellents - All questions answered Robert Avery CNP [facility] 02-16-2023 Instructions Robert Avery APRN.CNP - 02/16/2023 6:27 PM EDT ASSESSMENT/PLAN: 1. Reaction to insect bite - ICD9: 919.4, E906.4, ICD10: W57.XXXA - MUPIROCIN 2 % TOPICAL OINTMENT Do not scratch and break the skin; keep area clean and dry Wound care discussed; Cool compresses as needed to site Tylenol or NSAIDS as needed for pain control Avoid exposure to habitat if known; wear clothing that covers/protect skin/ use insect repellents - All questions answered Robert Avery CNP documented in this encounter [facility] 02-16-2023 History of Presen t illness Narrative HPI- pt presents s/p insect bite to lower right leg three days ago; has noted redness, tenderness, inflammation and + pus drainage at this site; has been applying localized wound care no fevers, systemic complaints PAST MEDICAL HISTORY Diagnosis Date Anemia Eating disorder depression anxiety and depression depression Preeclampsia Recurrent UTI No past surgical history on file. FAMILY HISTORY Problem Relation Age of Onset Hypertension Mother Bipolar disorder Mother Scoliosis Mother Emphysema Mother Anxiety disorder Mother No Known Problems Father No Known Problems Sister No Known Problems Sister No Known Problems Sister No Known Problems Brother No Known Problems Brother No Known Problems Brother No Known Problems Maternal Grandmother Diabetes Maternal Grandfather Arthritis Maternal Grandfather Hypertension Maternal Grandfather No Known Problems Paternal Grandmother No Known Problems Paternal Grandfather No Known Problems Daughter Social History Tobacco Use Smoking status: Never Smokeless tobacco: Never Vaping Use Vaping Use: Former Quit date: 09/25/2022 Substances: Nicotine Substance Use Topics Alcohol use: Not Currently Comment: occasionally Drug use: Never Current Outpatient Medications Medication Sig magnesium oxide (MAG-OX) 400 mg (241.3 mg magnesium) tablet Take 1 tablet by mouth once daily. vit/iron fum/folic ac ( 1 + 1 ORAL) Take by mouth. terconazole (TERAZOL 7) 0.4 % vaginal cream Use 1 Applicator vaginally daily at bedtime for 7 days. aspirin, enteric coated (ASPIRIN, ENTERIC COATED) 81 mg EC tablet Take 2 tablets by mouth once daily. ondansetron (ZOFRAN) 4 mg tablet Take 1 tablet by mouth every 8 hours as needed for nausea/vomiting. No current facility-administered medications for this visit. Allergies: Vinegar Rash PHYSICAL EXAM: BP 114/69 Pulse 81 Temp 36.7 C (98 F) (Temporal) Resp 16 Wt 68.8 kg (151 lb 9.6 oz) LMP 08/07/2022 (Exact Date) SpO2 96% BMI 24.10 kg/m General: 22 yo female in NAD right leg- + dime size area mid lower leg that is red, tender, mildly inflamed; no drainage; no stinger noted ASSESSMENT/PLAN: 1. Reaction to insect bite - ICD9: 919.4, E906.4, ICD10: W57.XXXA - MUPIROCIN 2 % TOPICAL OINTMENT Do not scratch and break the skin; keep area clean and dry Wound care discussed; Cool compresses as needed to site Tylenol or NSAIDS as needed for pain control Avoid exposure to habitat if known; wear clothing that covers/protect skin/ use insect repellents - All questions answered Robert Avery CNP documented in this encounter [facility] 02-14-2023 Note HNO ID: [id number] Author: Reshma Fairbanks Ma Service: ? Author Type: ? Type: Progress Notes Filed: 02/14/2023 9:10 AM Note Text: Patient identified by name and date of . Kathy Oneill presents today for a vaccination of Tdap. Patient denies an allergy to latex: yes Patient denies a severe (life-threatening) allergy to a previous dose of Tdap, DTP, DTaP, DT or Td vaccine. Yes Patient denies history of epilepsy or neurological problems: Yes Patient is afebrile and denies being moderately or severely ill: Yes Patient denies history of Guillain-Poyen Syndrome (a severe paralytic illness): Yes Tdap Adacel injection was given without incident. See immunizations for details of immunizations administered today. VIS sheet provided: Yes Provider Dr Galloway was present in office at time of injection. Reshma Fairbanks Ma [facility] 02-14-2023 Miscellaneous Notes RR- VB No. LOF No. CTXS No. Movement: present. Other c/o: some lower abd. pain after she is really active, some vaginal discharge and pruritis, h/o yeast infections Medication list reviewed. Physical Exam See Flow Sheet Abd: soft, nontender, gravid Ext: edema: Trace A/P 27w2d Estimated Date of Delivery: 05/14/23 Labs: 28 week labs tdap Trial terazol for yeast vagintis Give plan worksheet d/w her LARC/contraception. Considering IUD PP, but declines LARC at delivery cont. ASA and magnesium Jade Galloway M.D. documented in this encounter [facility] 02-14-2023 History of Presen t illness Narrative Patient identified by name and date of . Kathy Oneill presents today for a vaccination of Tdap. Patient denies an allergy to latex: yes Patient denies a severe (life-threatening) allergy to a previous dose of Tdap, DTP, DTaP, DT or Td vaccine. Yes Patient denies history of epilepsy or neurological problems: Yes Patient is afebrile and denies being moderately or severely ill: Yes Patient denies history of Guillain-Poyen Syndrome (a severe paralytic illness): Yes Tdap Adacel injection was given without incident. See immunizations for details of immunizations administered today. VIS sheet provided: Yes Provider Dr Galloway was present in office at time of injection. Reshma Fairbanks Ma documented in this encounter [facility] 02-14-2023 Instructions Reshma Fairbanks Ma - 02/14/2023 8:32 AM EDT SEQUENTIAL SCREENINGS The [facility] offers sequential screenings for women who are interested in screenings for chromosomal abnormalities and certain defects during a . The sequential screen combines ultrasound and blood tests to determine the risk of chromosomal abnormalities, including Down's Syndrome (Trisomy 21) and Trisomy 18, as well as open neural tube defects including spina bifida. Ultrasound examination is performed between 11 weeks and 13 weeks gestational age. Blood tests are drawn after the ultrasound and again later in the between 15 and 21 weeks gestational age. Please let your physician know if you are interested in this testing. It will require an appointment with our heating and cooling technician. This is not an ultrasound performed by a physician in our office during a routine visit. SIGNS AND SYMPTOMS OF LABOR 1. Contractions every 10 minutes or more often 2. Clear, pink, or brownish fluid (water) leaking from vagina 3. Feeling that baby is pushing down, pressure 4. Low, dull backache 5. Cramps that feel like a period 6. Cramps with or without diarrhea If you notice any of the above symptoms, contact our office at [phone] and ask to speak with a nurse. After hours, you can call doctors registry at [phone] OR call [facility] at [phone] and ask to have the doctor communications electrician supervisor paged. If you consider this an emergency, dial 9-1-7 or go to your nearest emergency department. NEED HELP? Are you dealing with a violent or abusive relationship? Are you a victim of rape or sexual assult? Call [facility] ([facility] 24 hour Crisis Hotline: 433.563.4171 or 941-699-9592. MANUAL Your Guide to a Healthy manual is now on-line. Visit [email or web address] to download your free copy documented in this encounter [facility] 11-01-2022 Miscellaneous Notes RR- VB No. LOF No. CTXS No. Movement: absent. Other c/o: still w/ nausea and occas emesis. Compazine and b6 didn't help Medication list reviewed. Physical Exam See Flow Sheet Abd: soft, nontender, gravid Ext: edema: Trace A/P 12w2d Estimated Date of Delivery: 05/14/23 Labs: d/w her NIPT as screen and she deisres this US for anatomy at 18-20 weeks trial zofran for N/v of Jade Galloway M.D. documented in this encounter [facility] 11-01-2022 Vladimir Castellanos [facility] - 11/01/2022 2:22 PM EDT SEQUENTIAL SCREENINGS The [facility] offers sequential screenings for women who are interested in screenings for chromosomal abnormalities and certain defects during a . The sequential screen combines ultrasound and blood tests to determine the risk of chromosomal abnormalities, including Down's Syndrome (Trisomy 21) and Trisomy 18, as well as open neural tube defects including spina bifida. Ultrasound examination is performed between 11 weeks and 13 weeks gestational age. Blood tests are drawn after the ultrasound and again later in the between 15 and 21 weeks gestational age. Please let your physician know if you are interested in this testing. It will require an appointment with our heating and cooling technician. This is not an ultrasound performed by a physician in our office during a routine visit. SIGNS AND SYMPTOMS OF LABOR 1. Contractions every 10 minutes or more often 2. Clear, pink, or brownish fluid (water) leaking from vagina 3. Feeling that baby is pushing down, pressure 4. Low, dull backache 5. Cramps that feel like a period 6. Cramps with or without diarrhea If you notice any of the above symptoms, contact our office at [phone] and ask to speak with a nurse. After hours, you can call [facility] at [phone] OR call [facility] at [phone] and ask to have the doctor communications electrician supervisor paged. If you consider this an emergency, dial 9-1-1 or go to your nearest emergency department. NEED HELP? Are you dealing with a violent or abusive relationship? Are you a victim of rape or sexual assult? Call [facility] ([place]) 24 hour Crisis Hotline: 420.345.8983 or 207-531-4656. MANUAL Your Guide to a Healthy manual is now on-line. Visit [email or web address] to download your free copy documented in this encounter [facility] 10-30-2022 Miscellaneous Notes Patient notified. Willow Beck RN Since she was seen in er and ultrasound was done then she can wait for Nt. If bleeding gets heavier then notify office. 12w0d Pt calling and stated that she was seen in [facility] ER on 10/28/22 for cramping and became worse and she started with some bleeding. Pt was seen and lab work and ultrasound done. She was told that she and baby are fine. She was told that she has subchorionic hemorrhage. Pt has appointment scheduled for 11/01/22 for her nuchal follow by ob appointment. Pt wanting to know if that is soon enough or does she need to be seen sooner. Pt is not having any further cramping with only the occasional spotting that is very light pink in color. Please advise. Jenny Hurley LPN documented in this encounter [facility] 10-29-2022 Hospital Discharg e instructions Patient Education 10/29/2022 00:31:45 Bleeding During Early Bleeding During Early Ultrasound can help check the health of your fetus. If you ve had bleeding early in your , you re not alone. Many other women have had early bleeding, too. And in most cases, nothing is wrong. But your healthcare provider still needs to know about it. He or she may want to do tests to find out why you re bleeding. Call your healthcare provider if you notice bleeding during . What causes early bleeding? The cause of bleeding early in is often unknown. But many factors early on in may lead to bleeding or spotting. These include sexual intercourse, which may cause bleeding in any trimester. Here are some other causes: Implantation of the embryo on the uterine wall Subchorionic hemorrhage (bleeding between the sac membrane and the uterus) Miscarriage Ectopic (tubal) If you notice spotting Spotting (very light bleeding) is the most common type of bleeding in early . If you notice it, call your healthcare provider. Chances are, he or she will tell you that you can care for yourself at home. If tests are needed Depending on how much you bleed, your healthcare provider may ask you to come in for some tests. A pelvic exam, for instance, can help see how far along your is. You also may have an ultrasound or a Doppler test. These imaging tests use sound waves to check the health of your fetus. The ultrasound may be done on your belly or inside your vagina. Your healthcare provider also may order a special blood test. This test compares your hormone levels in blood samples taken 2 days apart. The results can help your healthcare provider learn more about the implantation of the embryo. Your blood type will also need to be checked to evaluate whether you will need to be treated for Rh sensitization. Warning signs If your bleeding doesn t stop or if you notice any of the following, seek medical help right away: Soaking a sanitary pad each hour Bleeding like you re having a period Cramping or severe belly pain Feeling dizzy or faint Tissue passing through your vagina Bleeding at any time after the first trimester Questions you may be asked Though not normal, bleeding early in is common. If you ve noticed any bleeding, you may be concerned. But keep in mind that bleeding alone doesn t mean something is wrong. Call your healthcare provider right away, though. He or she may ask you questions like these to help find the cause of your bleeding: When did your bleeding start? Is your bleeding very light (spotting) or is it like a period? Is the blood bright red or brownish? Have you had sexual intercourse recently? Have you had pain or cramping? Have you felt dizzy or faint? Monitoring your Bleeding will often stop as quickly as it began. Your may go on a normal path again. You may need to make a few extra visits. But you and your baby will most likely be fine. 3427-0816 [employer]. [address] [place] [address]. All rights reserved. This information is not intended as a substitute for professional medical care. Always follow your healthcare professional's instructions. Follow Up Care 10/28/2022 22:05:45 With:your obgyn Address: When:2-4 days [facility] 10-29-2022 Note Discharge Instructions Thank you for allowing [facility] to assist you with your healthcare needs. The following is important discharge information regarding your hospital visit. Diagnosis from Today's Visit Abdominal pain - Vaginal bleeding - < 20 wks What to Do Next Instructions from Your Care Team No qualifying data available. Post Acute Orders No qualifying data available. You Need to Schedule the Following Appointments Follow Up with your obgyn When Within 2-4 days Where: Allergies vinegar Medications Please ask your primary doctor or pharmacist before taking any other medication not listed, including over the counter drugs, herbal medications, vitamins and or supplements as they may interact with your home medications. What How Much When Why Instructions Last Dose Unchanged acetaminophen-hydrocodone (acetaminophen-hydrocodone 325 mg-5 mg oral tablet) 1 tab(s) by mouth Every 4 hours as needed for for pain Elbow fracture Duration: 3 Days Unchanged Misc Medication Unchanged ondansetron (Zofran 4 mg oral tablet) 1 tab(s) by mouth Every 8 hours UTI - Urinary tract infection Unchanged sertraline (sertraline 50 mg oral tablet) 1 tab(s) by mouth Every day Please take this list to your next doctor s visit. Bring all medications you take, including over the counter medications, herbals and other supplements with you to your doctor s visit. Patients and families are reminded to discard old lists and to update any records with all medication providers or retail pharmacies. Education Materials Bleeding During Early Ultrasound can help check the health of your fetus. If you ve had bleeding early in your , you re not alone. Many other women have had early bleeding, too. And in most cases, nothing is wrong. But your healthcare provider still needs to know about it. He or she may want to do tests to find out why you re bleeding. Call your healthcare provider if you notice bleeding during . What causes early bleeding? The cause of bleeding early in is often unknown. But many factors early on in may lead to bleeding or spotting. These include sexual intercourse, which may cause bleeding in any trimester. Here are some other causes: Implantation of the embryo on the uterine wall Subchorionic hemorrhage (bleeding between the sac membrane and the uterus) Miscarriage Ectopic (tubal) If you notice spotting Spotting (very light bleeding) is the most common type of bleeding in early . If you notice it, call your healthcare provider. Chances are, he or she will tell you that you can care for yourself at home. If tests are needed Depending on how much you bleed, your healthcare provider may ask you to come in for some tests. A pelvic exam, for instance, can help see how far along your is. You also may have an ultrasound or a Doppler test. These imaging tests use sound waves to check the health of your fetus. The ultrasound may be done on your belly or inside your vagina. Your healthcare provider also may order a special blood test. This test compares your hormone levels in blood samples taken 2 days apart. The results can help your healthcare provider learn more about the implantation of the embryo. Your blood type will also need to be checked to evaluate whether you will need to be treated for Rh sensitization. Warning signs If your bleeding doesn t stop or if you notice any of the following, seek medical help right away: Soaking a sanitary pad each hour Bleeding like you re having a period Cramping or severe belly pain Feeling dizzy or faint Tissue passing through your vagina Bleeding at any time after the first trimester Questions you may be asked Though not normal, bleeding early in is common. If you ve noticed any bleeding, you may be concerned. But keep in mind that bleeding alone doesn t mean something is wrong. Call your healthcare provider right away, though. He or she may ask you questions like these to help find the cause of your bleeding: When did your bleeding start? Is your bleeding very light (spotting) or is it like a period? Is the blood bright red or brownish? Have you had sexual intercourse recently? Have you had pain or cramping? Have you felt dizzy or faint? Monitoring your Bleeding will often stop as quickly as it began. Your may go on a normal path again. You may need to make a few extra visits. But you and your baby will most likely be fine. [phone] [employer]. [address] [place] [address]. All rights reserved. This information is not intended as a substitute for professional medical care. Always follow your healthcare professional's instructions. Additional Information VACCINATE! IT SAVES LIVES! Members of the community who have not yet received the COVID-19 vaccine and would like to receive it can visit one of [facility] vaccine clinics. There are many vaccine clinic locations within the [facility]. For locations and available times, please visit [email or web address] It is important to note that some COVID mobile vaccine clinics are held outdoors and may be canceled in rainy or stormy conditions. To learn more about pediatric vaccinations (ages 5-11), we invite you to visit the [facility] webpage. [email or web address] To learn more about the COVID-19 vaccine, we invite you to visit the CDC website for a list of frequently asked questions. https://www.cdc.gov/coronavirus/ 2019-ncov/vaccines/faq.html [facility] Patient [facility] Access Instructions: Stay connected with your healthcare team and access your personal medical information anytime with the [facility] Patient Portal. If you would like a full copy of your medical records please contact the [facility] Medical Records Department Sunday through Sunday between 8a.m. and 4:30p.m. Please follow the directions below to access the portal: 1.Access the email account you provided upon registration to the [facility].2.Look for an invitation email from [facility].3.Open the email and access the invitation link: Accept Invitation to [employer]4.Fill in the required mueller to create your account. Sign into www.[email or web address] Reader with your username and password that you created in the above steps to stay up to date. You can then view a summary of results, a summary of your visits, and the ability to download your summaries to your computer or send the information securely to a physician. Remember that your healthcare information is confidential, so carefully consider who you will allow to register on the [facility] Patient Portal for access to your information. You can also access the [facility] Patient Portal on the [employer] chio. Simply click on Health Records under Health Data and then click on the [email or web address] logo. HOW TO SAFELY DISPOSE OF PRESCRIPTION MEDICATIONS Please use one of the following methods to safely dispose of your unused medications. 1.Use a drug disposal kit: the drug disposal pouch allows you to safely discard your old and unused drugs. Ask your nurse to give you one when you are discharged.2.Visit a local take-back location: Many local pharmacies and police departments have programs that collect old and unwanted prescription drugs. Call your local pharmacy or go to http://LifeBlinx.Clean Runner/5U4Yb3d to find one close to you.3.Make use of household items: Use cat litter or old coffee grounds to dispose medications if other options are not available. Mix your drugs with these household products, seal them in an airtight container and throw it into the garbage. Call [facility]: [phone] to be sure your drugs can be disposed of in this way. Some medicines may require a different approach.4.Never flush your medications down the toilet. IF YOU HAVE BEEN PRESCRIBED AN OPIOIDS FOR PAIN If you have been prescribed an opioid (such as hydrocodone, oxycodone or morphine), it is critical to understand the possible side effects and risks of opioid pain medications. Even when taken as directed, opioids can have several side effects including: Tolerance, meaning you might need to take more of a medication for the same pain relief. Nausea, vomiting and/or constipation. Sleepiness, dizziness, dry mouth, confusion, depression or itching. Physical dependence, meaning you have withdrawal symptoms when a medication is stopped ? this can develop within a few days. KNOW YOUR RESPONSIBILITIES It is important to know exactly how much and how often to take the opioid pain medications you are prescribed. Never take opioids in higher amounts or more often than prescribed. Do not combine opioids with alcohol or other drugs that cause drowsiness, such as benzodiazepines, also known as benzos, including diazepam and alprazolam, muscle relaxants or sleep aids. Never sell or share prescription opioids. This is illegal. Store opioids in a secure place and out of reach of others (including children, family, friends and visitors). The last page(s) of this document has been signed and retained as a CHART COPY Signatures Patient Education Materials Bleeding During Early Medication Leaflets My discharge plan and instructions have been reviewed and explained to me and I,KATHY ONEILL understand my current condition and have read and understand these discharge instructions. I have received a written copy of the plan/instructions. If I have questions, I am aware that I should contact my doctor. Patient/Channel Turner Signature: Date/Time: Relationship to Patient: Witness Name/Signature: Date/Time: [facility] 10-06-2022 Miscellaneous Notes Initial risk assessment form submitted October 06, 2022 @ 1:35 PM. Juancho Huitron RN documented in this encounter [facility] 10-03-2022 Note HNO ID: [id number] Author: Jade Galloway MD Service: ? Author Type: Physician Type: Progress Notes Filed: 10/03/2022 2:55 PM Note Text: OB point of care ultrasound was performed. See imaging tab for details. Reshma Fairbanks Ma INITIAL OB ASSESSMENT OB Provider: Jade Galloway MD HPI: Kathy Oneill is a 22 year old female here to establish Obstetrical Care. Patient's last menstrual period was 08/07/2022 (exact date). from OB Dating Form. Cycle length: 28-30 days Complaints: nausea and vomiting was planned. OB History T1 L1 SAB1 IAB0 Ectopic0 Multiple0 Live Births1 Prior : never History of 4th degree laceration: No Patient's Risk Screening for delivery: History of abnormal pap: No Prior treatment for cervical dysplasia: none. History of STDs: None Tobacco use: Yes- quit when found out Caffeine use: Yes Drug use: No Alcohol use: No Multivitamin with Folic acid: Yes Occupation: [employer] Rastafari or Impact heritage: No Would refuse blood transfusion if medically necessary: No No weight on file for this encounter. Patient BMI over 30? No Marital Status:Co-habitating Partner: Name: Freddie Age: 27 Occupation: a and p mechanic Gender: male History of STDs: None PAST MEDICAL HISTORY Diagnosis Date Anemia Eating disorder depression anxiety and depression depression Preeclampsia Recurrent UTI No past surgical history on file. Current Outpatient Medications on File Prior to Visit Medication Sig vit/iron fum/folic ac ( 1 + 1 ORAL) Take by mouth. NIFEdipine ER (PROCARDIA XL) 30 mg 24 hr tablet Take 2 tablets by mouth once daily (Patient not taking: No sig reported) hydrOXYzine pamoate (VISTARIL) 50 mg capsule Take 1 capsule by mouth twice daily as needed. (Patient not taking: No sig reported) Miscellaneous Medical Supply (BLOOD PRESSURE CUFF) 1 Each twice daily. (Patient not taking: No sig reported) Iron 18 mg tab Take by mouth. (Patient not taking: No sig reported) No current facility-administered medications on file prior to visit. Review of Systems: GENERAL: Negative for: Fever or Chills HEENT: Negative for: Headache, Impaired Vision, Ringing in Ears, Nosebleeds NECK: Negative for: Swelling, Pain, Stiffness RESPIRATORY: Negative for: Cough, Shortness of breath, Wheezing GASTROINTESTINAL: Positive for: Nausea and Vomiting and Positive for: Heartburn MUSCULOSKELETAL: Negative for: Muscle or joint pain, stiffness, Joint swelling NEUROLOGIC/PSYCHIATRIC: Negative for: Weakness, Paralysis, Numbness, Tingling, Tremor, Anxiety, Depression, Memory loss SKIN: Negative for: Rash, Itching GENITOURINARY: Negative for: vaginal itching, vaginal discharge, hematuria or dysuria PHYSICAL EXAM: LMP 08/07/2022 GENERAL: pleasant female in no apparent distress DERMATOLOGY: Normal, without lesions, non-icteric, and non-hirsute NECK: Supple, full range of motion, no adenopathy, and thyroid normal CHEST: Normal inspiratory effort BREAST: soft, non-tender, symmetric, no dominant mass, normal nipple-areolar complex, no lymphadenopathy, and no nipple discharge ABDOMEN: soft, non-tender, and no masses NEURO: alert and oriented x3,exam grossly non-focal PELVIS: External genitalia normal without lesions. Perineal body intact. No vaginal or cervical lesions. Cervix closed. Uterus 8 week size. No adnexal masses or tenderness. Clinical Pelvimetry: Pelvimetry clinically assessed as adequate Limited OB ultrasound exam: single intrauterine and positive cardiac activity OB Risk Screening: Completed, no positive findings documented. SBIRT Kathy Oneill was given the 4P's screening tool. Kathy answered as follows: OB Opioid Screening - Last Recorded (since 01/06/2022) Did any of your parents have a problem with alcohol or other drug use? Yes father-drug Does your partner have a problem with alcohol or other drug use? No In the past, have you had difficulties in your life because of alcohol or other drugs, including prescription medications? No In the past month have you drunk any alcohol or used other drugs? No Are you taking medication for pain during the either prescribed or not? No Based on the screen and further questions, she is considered at Low risk due to:No past or current use. Positive reinforcement of current behavior. Jade Galloway MD ASSESSMENT: 22 year old at 8w1d wks gestational age PLAN: 1) Patient oriented to practice. Discussed nutrition, folic acid supplementation, dietary guidelines, exercise, smoking, alcohol, caffeine, and drug use. Discussed routine OB labs including STD/HIV. Discussed aneuploidy screening options including serum screening and nuchal translucency.- desires NIPT CF carrier screening discussed and declined. 2) History of preeclampsia. Baseline labs (more content not included)... [facility] 10-03-2022 Instructions Reshma Fairbanks Ma - 10/03/2022 1:26 PM EDT Please select the following link to access the [facility] Your Guide to a Healthy . [email or web address] documented in this encounter [facility] 10-03-2022 History of Presen t illness Narrative Images from the original note were not included. OB point of care ultrasound was performed. See imaging tab for details. Reshma Fairbanks Ma INITIAL OB ASSESSMENT OB Provider: Jade Galloway MD HPI: Kathy Oneill is a 22 year old female here to establish Obstetrical Care. Patient's last menstrual period was 08/07/2022 (exact date). from OB Dating Form. Cycle length: 28-30 days Complaints: nausea and vomiting was planned. OB History T1 L1 SAB1 IAB0 Ectopic0 Multiple0 Live Births1 Prior : never History of 4th degree laceration: No Patient's Risk Screening for delivery: History of abnormal pap: No Prior treatment for cervical dysplasia: none. History of STDs: None Tobacco use: Yes- quit when found out Caffeine use: Yes Drug use: No Alcohol use: No Multivitamin with Folic acid: Yes Occupation: [employer] Rastafari or heritage: No Would refuse blood transfusion if medically necessary: No No weight on file for this encounter. Patient BMI over 30? No Marital Status:Co-habitating Partner: Name: Freddie Age: 27 Occupation: a and p mechanic Gender: male History of STDs: None PAST MEDICAL HISTORY Diagnosis Date Anemia Eating disorder depression anxiety and depression depression Preeclampsia Recurrent UTI No past surgical history on file. Current Outpatient Medications on File Prior to Visit Medication Sig vit/iron fum/folic ac ( 1 + 1 ORAL) Take by mouth. NIFEdipine ER (PROCARDIA XL) 30 mg 24 hr tablet Take 2 tablets by mouth once daily (Patient not taking: No sig reported) hydrOXYzine pamoate (VISTARIL) 50 mg capsule Take 1 capsule by mouth twice daily as needed. (Patient not taking: No sig reported) Miscellaneous Medical Supply (BLOOD PRESSURE CUFF) 1 Each twice daily. (Patient not taking: No sig reported) Iron 18 mg tab Take by mouth. (Patient not taking: No sig reported) No current facility-administered medications on file prior to visit. Review of Systems: GENERAL: Negative for: Fever or Chills HEENT: Negative for: Headache, Impaired Vision, Ringing in Ears, Nosebleeds NECK: Negative for: Swelling, Pain, Stiffness RESPIRATORY: Negative for: Cough, Shortness of breath, Wheezing GASTROINTESTINAL: Positive for: Nausea and Vomiting and Positive for: Heartburn MUSCULOSKELETAL: Negative for: Muscle or joint pain, stiffness, Joint swelling NEUROLOGIC/PSYCHIATRIC: Negative for: Weakness, Paralysis, Numbness, Tingling, Tremor, Anxiety, Depression, Memory loss SKIN: Negative for: Rash, Itching GENITOURINARY: Negative for: vaginal itching, vaginal discharge, hematuria or dysuria PHYSICAL EXAM: LMP 08/07/2022 GENERAL: pleasant female in no apparent distress DERMATOLOGY: Normal, without lesions, non-icteric, and non-hirsute NECK: Supple, full range of motion, no adenopathy, and thyroid normal CHEST: Normal inspiratory effort BREAST: soft, non-tender, symmetric, no dominant mass, normal nipple-areolar complex, no lymphadenopathy, and no nipple discharge ABDOMEN: soft, non-tender, and no masses NEURO: alert and oriented x3,exam grossly non-focal PELVIS: External genitalia normal without lesions. Perineal body intact. No vaginal or cervical lesions. Cervix closed. Uterus 8 week size. No adnexal masses or tenderness. Clinical Pelvimetry: Pelvimetry clinically assessed as adequate Limited OB ultrasound exam: single intrauterine and positive cardiac activity OB Risk Screening: Completed, no positive findings documented. SBIRT Kathy Oneill was given the 4P's screening tool. Kathy answered as follows: OB Opioid Screening - Last Recorded (since 01/06/2022) Did any of your parents have a problem with alcohol or other drug use? Yes father-drug Does your partner have a problem with alcohol or other drug use? No In the past, have you had difficulties in your life because of alcohol or other drugs, including prescription medications? No In the past month have you drunk any alcohol or used other drugs? No Are you taking medication for pain during the either prescribed or not? No Based on the screen and further questions, she is considered at Low risk due to:No past or current use. Positive reinforcement of current behavior. Jade Galloway MD ASSESSMENT: 22 year old at 8w1d wks gestational age PLAN: 1) Patient oriented to practice. Discussed nutrition, folic acid supplementation, dietary guidelines, exercise, smoking, alcohol, caffeine, and drug use. Discussed routine OB labs including STD/HIV. Discussed aneuploidy screening options including serum screening and nuchal translucency.- desires NIPT CF carrier screening discussed and declined. 2) History of preeclampsia. Baseline labs ordered.QASA candidate 3) US done for dates n/v of - trial of compazine and vit b6 for now Follow up in 4 weeks or sooner prn. Jade Galloway MD documented in this encounter [facility] 10-02-2022 Note HNO ID: [id number] Author: Sarah Angelo RN Service: ? Author Type: ? Type: Progress Notes Filed: 10/02/2022 4:58 PM Note Text: # 1 - Date: 10/2020, Sex: None, Weight: None, GA: 7w0d, Delivery: None, Apgar1: None, Apgar5: None, Living: None, Comments: No DANDC # 2 - Date: 02/07/22, Sex: Female, Weight: 7 lb 4 oz (3.289 kg), GA: 40w5d, Delivery: Vaginal, Spontaneous, Apgar1: None, Apgar5: None, Living: Living, Comments: spontaneous labor, pre eclampsia, covid at 40 weeks, 2nd degree midline episiotomy, EBL 300mL # 3 - Date: None, Sex: None, Weight: None, GA: None, Delivery: None, Apgar1: None, Apgar5: None, Living: None, Comments: None [facility] 02-24-2022 Miscellaneous Notes Patient notified. Elaine Light RN Agree sent Patient currently taking 60 mg of Procardia. Has BP check on Sunday. Only has one pill left. Please send in appropriate RX. Was not sure if you wanted to send in 30 mg dose and have patient take 2 a day in case her dose is lowered next week. Thanks. Elaine Light RN documented in this encounter [facility] 02-23-2022 Miscellaneous Notes Appointment scheduled for 02/28/22. Willow Beck RN Attempted to reach patient. Mychart message unread and unable to leave a voicemail. Patient needing a BP check with a physician the week of 02/27. documented in this encounter [facility] 02-20-2022 History of Presen t illness Narrative EARLY VISIT Kathy Oneill is a 21 year old here for 2 week visit. Delivery Summary: ROS: General: Denies any fever or chills Hypertension Screening: Headache? No. Visual Changes? No Epigastric Pain? No Increased Swelling? No Taking any BP medications at home? Yes If applicable, monitoring BP at home? (If Yes, include results) no b/c of anxiety Mood: normal Depression: denies symptoms of depression. OB Depression and Anxiety Screening- This Encounter (since 02/19/2022) Over the past 2 weeks have you felt down, depressed, or hopeless? Negative Over the past two weeks, have you felt little interest or pleasure in doing things? Negative Feeling nervous, anxious or on edge 0-Not at all Not being able to stop or control worrying 0-Not al all Anxiety Pre-Screening Total (If >/= 3 additional questions will be reviewed) 0 Feeding: Breast and bottle feeding problems: None Emotional support: Yes Exercise: N/A Other issues: None PHYSICAL EXAMINATION: Wt 139 lb (63 kg) LMP 04/28/2021 (Approximate) Yes BMI 22.10 kg/m General: pleasant,female in no apparent distress, A&O x 3. Skin warm and intact. B ASSESSMENT AND PLAN: 21 year old status post with severe preeclampsia cont. procardia 30 mg bid Follow up: f/unit(s) in 1 week or prn Jade Galloway MD documented in this encounter [facility] 02-13-2022 History of Presen t illness Narrative EARLY VISIT Obstetric History T1 L1 SAB1 IAB0 Ectopic0 Multiple0 Live Births1 Name of Baby 1: Not recorded Date: 10/2020 GA: 7w0d Delivery: Not recorded Apgar1: Not recorded Apgar5: Not recorded Living: Not recorded Name of Baby 2: Dhara Date: 02/07/22 GA: 40w5d Delivery: Vaginal, Spontaneous Apgar1: Not recorded Apgar5: Not recorded Living: Living Kathy Oneill is a 21 year old here for 1 week visit. Delivery Summary: ROS: General: Denies any fever or chills Hypertension Screening: Headache? No. Visual Changes? No Epigastric Pain? No Increased Swelling? No Taking any BP medications at home? Yes If applicable, monitoring BP at home? (If Yes, include results) No- causing too much anxiety Mood: normal Depression: denies symptoms of depression. OB Depression and Anxiety Screening- This Encounter (since 02/12/2022) Over the past 2 weeks have you felt down, depressed, or hopeless? Negative Over the past two weeks, have you felt little interest or pleasure in doing things? Negative Feeling nervous, anxious or on edge 3-Nearly every day Not being able to stop or control worrying 0-Not al all Anxiety Pre-Screening Total (If >/= 3 additional questions will be reviewed) 3 Worrying too much about different things 1-Several days Trouble relaxing 0-Not al all Being so restless that it is hard to sit still 0-Not al all Becoming easily annoyed or irritable 0-Not al all Feeling afraid, as if something awful might happen 2-More than half the days Anxiety (PASCALE) Full Screening Total 6 Feeding: Breast and bottle feeding problems: None Bladder: No dysuria, gross hematuria, urinary frequency, urinary urgency, or incontinence Bowel symptoms: Negative for abdominal discomfort, blood in stools or black stools and change in bowel habits Abdomen: N/A Bleeding: light flow Bottom and Perineum: No issues Sleep: no sleep concerns, feels rested [place] since delivery: Not resumed Emotional support: Yes Exercise: N/A Other issues: None PHYSICAL EXAMINATION: avg BP 121/89 BP 113/90 Pulse 97 Wt 143 lb 9.6 oz (65.1 kg) LMP 04/28/2021 (Approximate) SpO2 99% Yes BMI 22.83 kg/m General: pleasant,female in no apparent distress, A&O x 3. Skin warm and intact. Breast: Deferred Abdomen: Deferred /Incision: N/A Pelvic: Deferred Bimanual: Deferred ASSESSMENT AND PLAN: 1. 21 year old status post with course complicated by PRE E. 2. Contraception plan: unsure . Reinforced 6-week pelvic rest. Encouraged condom usage should patient deviate. 3. Education: resources provided - see MA/RN note 4. Continue 30mg Procardia XL daily- will follow up in office one week for BP check. S/sx PRE E and when to call were reviewed. Follow up: 1 week and Return to Clinic for 6 week visit and as needed Medical Decision Making Gema Sierra MD documented in this encounter [facility] 02-10-2022 Miscellaneous Notes see other phone note Nurse notified me she checked with patient and BP still elevated 160/105. Sent in for evaluation. Likely will need increased BP medication. Jade Galloway MD Attempted to contact patient again. No answer and unable to leave a message as voicemail box is full. See other phone note from today. Jessie Gustafson RN Attempted to contact patient but no answer and unable to leave a message a voicemail box is full. [employer] message sent to patient. Jessie Gustafson RN Please send message to and ask her to manage. Thank you, Juancho Peraza APRN.CNM Patient called and appointment scheduled for Sunday. Patient states she found her medication and is currently taking Procardia 30 mg daily. Patient also states she took her BP a short while ago and it was 160/110. Questioned patient if she was sitting resting prior to taking BP. Patient states she was up and walking around. Patient instructed to sit and rest at least 5 minutes prior to taking BP and to keep a log of her BP readings. Jesise Gustafson RN Patient was supposed to have follow up blood pressure check next week. Can you please schedule her for Sunday with physician. Thank you, Juancho Peraza APRN.CNM on 02/07 with SW. Patient called to ask if her BP medication was changed. She was at [facility] last night via ambulance for elevated BP. See Epic. Was given Labetalol 100 mg in [facility]. She doesn't know the name of the BP medication she was put on post delivery. Inquired if she took her BP today. She has not. Both her medication and cuff are located at her friend's house. Stressed the importance of checking her BP and taking medication as instructed. She is going to do so and call the office with her reading and the name of her medication. Would you like her seen next week for BP check? Elaine Light RN documented in this encounter [facility] 02-10-2022 Miscellaneous Notes Patient is instructed to go to L&D. PB 162/104. Juancho Peraza and Dr Jerzy wood. Called L&D See other phone note from today. Patient did no answer phone, she did not call back and she has not read her Casmul message. Jessie Gustafson RN Did patient return call? I just want to make sure we get follow up blood pressure. If repeat is 160/110 would recommend labor and delivery. Thanks, Juancho Peraza APRN.CNM documented in this encounter [facility] 02-09-2022 Miscellaneous Notes BP cuff order faxed to [facility]. Willow Beck RN [facility] does not supply BP cuffs. Will send to [facility] once filed by provider. Willow Beck RN Please fax to home supply [employer] in [place] for BP cuff. Thank you, Juancho Peraza APRN.CNM documented in this encounter [facility] 02-08-2022 History of Presen t illness Narrative Patient delivered via by Dr. Yarbrough on 02/07/22 at [facility]. See OB history. Willow Beck RN documented in this encounter [facility] 02-06-2022 History of Presen t illness Narrative NST SUMMARY PROVIDER ASSESSMENT AND INTERPRETATION Kathy Oneill is a 21 year old female, , who is at 40w4d with an HARPER of 02/02/2022, by Last Menstrual Period dating method. Indications for NST: Other: 40+ weeks, COVID 19 + on 02/03 Baseline: 130 Variability: Moderate Accelerations: Present 15 X 15 Decelerations: None Contractions: TOCO: Irregular Interpretation: Category I and Reactive SIGNATURE: Jade Galloway MD documented in this encounter [facility] 02-06-2022 Miscellaneous Notes RR- VB No. LOF No. CTXS yes, irreg. Movement: present. Other c/o: No. Medication list reviewed. Physical Exam See Flow Sheet Abd: soft, nontender, gravid Ext: edema: Trace A/P 40w4d Estimated Date of Delivery: 02/02/22 kick counts NST r/b/a to 41 week induction reviewed, questions answered, consent signed. Jade Galloway M.D. documented in this encounter [facility] 02-06-2022 Vladimir Fairbanks Ma - 02/06/2022 11:03 AM EDT SEQUENTIAL SCREENINGS The [facility] offers sequential screenings for women who are interested in screenings for chromosomal abnormalities and certain defects during a . The sequential screen combines ultrasound and blood tests to determine the risk of chromosomal abnormalities, including Down's Syndrome (Trisomy 21) and Trisomy 18, as well as open neural tube defects including spina bifida. Ultrasound examination is performed between 11 weeks and 13 weeks gestational age. Blood tests are drawn after the ultrasound and again later in the between 15 and 21 weeks gestational age. Please let your physician know if you are interested in this testing. It will require an appointment with our heating and cooling technician. This is not an ultrasound performed by a physician in our office during a routine visit. SIGNS AND SYMPTOMS OF LABOR 1. Contractions every 10 minutes or more often 2. Clear, pink, or brownish fluid (water) leaking from vagina 3. Feeling that baby is pushing down, pressure 4. Low, dull backache 5. Cramps that feel like a period 6. Cramps with or without diarrhea If you notice any of the above symptoms, contact our office at [phone] and ask to speak with a nurse. After hours, you can call doctors registry at [phone] OR call [facility] at [phone] and ask to have the doctor communications electrician supervisor paged. If you consider this an emergency, dial 9-7-0 or go to your nearest emergency department. NEED HELP? Are you dealing with a violent or abusive relationship? Are you a victim of rape or sexual assult? Call [facility] ([place]) 24 hour Crisis Hotline: 583.629.5023 or 722-431-4984. MANUAL Your Guide to a Healthy manual is now on-line. Visit [email or web address] to download your free copy documented in this encounter [facility] 01-17-2022 Miscellaneous Notes DM-Pt doing well. Denies vaginal Bleeding, Leaking fluid, or regular Contractions. Pt reports good movement Physical Exam: Gen: female in no apparent distress Abd: soft, Gravid. Non tender to palpation. See flow sheet A/P: @ 37.5 weeks 1) Labor and kick counts reviewed 2) GBS negative 3) PN labs done 4) continue PO iron 5) RTO one week Gema Sierra MD documented in this encounter [facility] 01-17-2022 Instructions Cinda Rodriguez MA - 01/17/2022 2:47 PM EDT SEQUENTIAL SCREENINGS The [facility] offers sequential screenings for women who are interested in screenings for chromosomal abnormalities and certain defects during a . The sequential screen combines ultrasound and blood tests to determine the risk of chromosomal abnormalities, including Down's Syndrome (Trisomy 21) and Trisomy 18, as well as open neural tube defects including spina bifida. Ultrasound examination is performed between 11 weeks and 13 weeks gestational age. Blood tests are drawn after the ultrasound and again later in the between 15 and 21 weeks gestational age. Please let your physician know if you are interested in this testing. It will require an appointment with our heating and cooling technician. This is not an ultrasound performed by a physician in our office during a routine visit. SIGNS AND SYMPTOMS OF LABOR 1. Contractions every 10 minutes or more often 2. Clear, pink, or brownish fluid (water) leaking from vagina 3. Feeling that baby is pushing down, pressure 4. Low, dull backache 5. Cramps that feel like a period 6. Cramps with or without diarrhea If you notice any of the above symptoms, contact our office at [phone] and ask to speak with a nurse. After hours, you can call doctors registry at [phone] OR call [facility] at [phone] and ask to have the doctor communications electrician supervisor paged. If you consider this an emergency, dial 9-1-8 or go to your nearest emergency department. NEED HELP? Are you dealing with a violent or abusive relationship? Are you a victim of rape or sexual assult? Call [facility] ([place]) 24 hour Crisis Hotline: 455.485.5722 or 095-122-5632. MANUAL Your Guide to a Healthy manual is now on-line. Visit [email or web address] to download your free copy documented in this encounter [facility] 01-12-2022 Miscellaneous Notes Noted thanks 37w0d Patient calling with c/o vomiting and diarrhea the last 3 days since seen in office. Last vomited at 3:30 AM, but states it was a large amount. Diarrhea 3-4 times today. More loose than watery, but yesterday was very watery. Able to keep food/fluids down so far today. Denies vaginal bleeding or LOF. Good FM. Was having irregular contractions before 2 PM today. Continues to have abdominal cramping. Was advised to go to L&D for evaluation. No available appointments and communications electrician supervisor provider at the hospital. L&D notified. Copy of episode sent. Elaine Light RN documented in this encounter [facility] 12-27-2021 Miscellaneous Notes PRAF #1 completed 12/27/21 CORWIN Monge, RN OB Clinical Navigator [phone] documented in this encounter [facility] 12-26-2021 Miscellaneous Notes DM- New OB. No vaginal bleeding, leaking of fluid or Ctx. Pt reports good FM. FHR 140s today. Fundal height 34cm. Limited PN care. Saw Dr. Lee in [place] up until ? 20 weeks. Reports currently being treated for UTI and yeast infection. Will need GC/Chlamydia at next appt with GBS. Discussed LARC- unsure- pamphlets given- will SIGN at next visit. Growth us ordered. Gema Sierra MD documented in this encounter [facility] 12-26-2021 History of Presen t illness Narrative Images from the original note were not included. INITIAL OB ASSESSMENT OB Provider: Gema Espino MD HPI: Kathy Oneill is a 21 year old female here to establish Obstetrical Care. Patient's last menstrual period was 04/28/2021 (approximate). from OB Dating Form. Cycle length: irregular Complaints: None was planned. OB History T0 L0 SAB1 IAB0 Ectopic0 Multiple0 Live Births0 Prior : never History of 4th degree laceration: No Patient's Risk Screening for delivery: History of abnormal pap: No Prior treatment for cervical dysplasia: none. History of STDs: None Tobacco use: Yes- vaping Caffeine use: Yes Drug use: No Alcohol use: No Multivitamin with Folic acid: Yes Occupation: [employer] Rastafari or heritage: No Would refuse blood transfusion if medically necessary: No BMI 25.12 kg/(m^2) Patient BMI over 30? No Marital Status:Single Partner: Name: Will not be involved- does not want to disclose Age: Occupation: Gender: History of STDs: PAST MEDICAL HISTORY Diagnosis Date Anemia depression depression No past surgical history on file. Current Outpatient Medications on File Prior to Visit Medication Sig sertraline (ZOLOFT) 100 mg tablet Take 100 mg by mouth once daily. cephALEXin (KEFLEX) 500 mg capsule Take 500 mg by mouth three times daily. Docosahexanoic Acid 200 mg cap Take by mouth. Iron 18 mg tab Take by mouth. vit/iron fum/folic ac ( 1 + 1 ORAL) Take by mouth. No current facility-administered medications on file prior to visit. Review of Systems: GENERAL: Negative for: Fever or Chills HEENT: Negative for: Headache, Impaired Vision, Ringing in Ears, Nosebleeds NECK: Negative for: Swelling, Pain, Stiffness RESPIRATORY: Negative for: Cough, Shortness of breath, Wheezing GASTROINTESTINAL: Negative for: Heartburn, Constipation, Diarrhea, Blood in stool, Vomiting MUSCULOSKELETAL: Negative for: Muscle or joint pain, stiffness, Joint swelling NEUROLOGIC/PSYCHIATRIC: + anxiety SKIN: Negative for: Rash, Itching GENITOURINARY: Negative for: vaginal itching, vaginal discharge, hematuria or dysuria PHYSICAL EXAM: BP 100/60 Ht 5' 6.5 (1.69m) Wt 158 lb (71.7kg) LMP 04/28/2021 BMI 25.12 kg/(m^2). GENERAL: pleasant female in no apparent distress DERMATOLOGY: Normal, without lesions, non-icteric and non-hirsute NECK: full range of motion BREAST: deferred ABDOMEN: soft, non-tender and no masses- gravid NEURO: alert and oriented x3,exam grossly non-focal PELVIS: deferred Clinical Pelvimetry: Limited OB ultrasound exam: not performed OB Risk Screening: Completed, no positive findings documented. SBIRT Kathy Oneill was given the 4P's screening tool. Kathy answered as follows: OB Opioid Screening - Last Recorded (since 03/31/2021) Did any of your parents have a problem with alcohol or other drug use? Yes drug use Does your partner have a problem with alcohol or other drug use? No In the past, have you had difficulties in your life because of alcohol or other drugs, including prescription medications? No In the past month have you drunk any alcohol or used other drugs? No Are you taking medication for pain during the either prescribed or not? No Based on the screen and further questions, she is considered at Low risk due to:No past or current use. Positive reinforcement of current behavior. Plan to rescreen early third trimester. Gema Sierra MD ASSESSMENT: 21 year old at 34.4 wks gestational age PLAN: 1) Patient oriented to practice. Discussed nutrition, folic acid supplementation, dietary guidelines, exercise, smoking, alcohol, caffeine, and drug use. Reviewed we need Previous OB records from Dr. Lee in [place]. 2) vaping reviewed- cessation reviewed 3) Iron supplementation 4) will need GC/Chlamydia with GBS 5) If no PN records sent advised labs are pending to get done 6) OB ultrasound for growth Follow up in 2 weeks or sooner prn. Gema Sierra MD documented in this encounter [facility] 12-26-2021 Instructions Namrata Najera Ma - 12/26/2021 10:25 AM EDT Please select the following link to access the [facility] Your Guide to a Healthy . [email or web address] documented in this encounter [facility] documented as of this encounter (statuses as of 03/16/2023) [facility] History of Past illness Narrative* Problem Noted Date Diagnosed Date Resolved Date with care elsewhere, antepartum 12/22/2021 03/05/2023 Overview: 12/22/2021atialex states she was previously seen by Dr. Lee in [place]. She was planning on transferring to a doctor in [place] but they were not accepting late transfer of care. She has seen Dr. Reyna in [place] for 1 visit. She states she wants a delivery in [place] so desires to transfer care here. Was seen in October 2020 for a miscarriage by Dr. Soria. I have advised patient that we need to get her medical records from Dr. Lee. I have given her the fax number for our office to have the records sent here.Patient denies any problems today. She states the baby has been active.Sarah Angelo RN UTI (urinary tract infection ) in , antepartum 12/22/2021 03/05/2023 Overview: 12/22/2021atialex was seen at [facility] on December [address] Galloway for UTI in . She states she started taking the antibiotic 2 days ago that was prescribed December 13 for the urinary tract infection. I have discussed with her the importance of treating a urinary tract infection in . TKRN History of anemia 12/22/2021 03/05/2023 Overview: 12/22/2021atialex was also seen at [place] [facility] for abdominal cramping on November 26. Patient had a previous hemoglobin result of 10.5 on that date she is currently taking an iron supplement.TKRN documented as of this encounter (statuses as of 04/24/2023) [facility] History of Past illness Narrative* Problem Noted Date Diagnosed Date Resolved Date with care elsewhere, antepartum 12/22/2021 03/05/2023 Overview: 12/22/2021atient states she was previously seen by Dr. Lee in [place]. She was planning on transferring to a doctor in [place] but they were not accepting late transfer of care. She has seen Dr. Reyna in [place] for 1 visit. She states she wants a delivery in [place] so desires to transfer care here. Was seen in October 2020 for a miscarriage by Dr. Soria. I have advised patient that we need to get her medical records from Dr. Lee. I have given her the fax number for our office to have the records sent here.Patient denies any problems today. She states the baby has been active.Sarah Angelo RN UTI (urinary tract infection ) in , antepartum 12/22/2021 03/05/2023 Overview: 12/22/2021atialex was seen at [facility] on December [address] Galloway for UTI in . She states she started taking the antibiotic 2 days ago that was prescribed December 13 for the urinary tract infection. I have discussed with her the importance of treating a urinary tract infection in . TKRN History of anemia 12/22/2021 03/05/2023 Overview: 12/22/2021atialex was also seen at [place] [facility] for abdominal cramping on November 26. Patient had a previous hemoglobin result of 10.5 on that date she is currently taking an iron supplement.TKRN documented as of this encounter (statuses as of 04/30/2023) [facility] History of Past illness Narrative* Problem Noted Date Diagnosed Date Resolved Date with care elsewhere, antepartum 12/22/2021 03/05/2023 Overview: 12/22/2021atient states she was previously seen by Dr. Lee in [place]. She was planning on transferring to a doctor in [place] but they were not accepting late transfer of care. She has seen Dr. Reyna in [place] for 1 visit. She states she wants a delivery in [place] so desires to transfer care here. Was seen in October 2020 for a miscarriage by Dr. Soria. I have advised patient that we need to get her medical records from Dr. Lee. I have given her the fax number for our office to have the records sent here.Patient denies any problems today. She states the baby has been active.Sarah Angelo RN UTI (urinary tract infection ) in , antepartum 12/22/2021 03/05/2023 Overview: 12/22/2021atialex was seen at [facility] on December [address] Galloway for UTI in . She states she started taking the antibiotic 2 days ago that was prescribed December 13 for the urinary tract infection. I have discussed with her the importance of treating a urinary tract infection in . TKRN History of anemia 12/22/2021 03/05/2023 Overview: 12/22/2021atialex was also seen at [facility] for abdominal cramping on November 26. Patient had a previous hemoglobin result of 10.5 on that date she is currently taking an iron supplement.TKRN documented as of this encounter (statuses as of 05/08/2023) [facility] History of Past illness Narrative* Problem Noted Date Diagnosed Date Resolved Date with care elsewhere, antepartum 12/22/2021 03/05/2023 Overview: 12/22/2021atient states she was previously seen by Dr. Lee in [place]. She was planning on transferring to a doctor in [place] but they were not accepting late transfer of care. She has seen Dr. Reyna in [place] for 1 visit. She states she wants a delivery in [place] so desires to transfer care here. Was seen in October 2020 for a miscarriage by Dr. Soria. I have advised patient that we need to get her medical records from Dr. Lee. I have given her the fax number for our office to have the records sent here.Patient denies any problems today. She states the baby has been active.Sarah Angelo RN UTI (urinary tract infection ) in , antepartum 12/22/2021 03/05/2023 Overview: 12/22/2021otto was seen at [facility] on December [address] Galloway for UTI in . She states she started taking the antibiotic 2 days ago that was prescribed December 13 for the urinary tract infection. I have discussed with her the importance of treating a urinary tract infection in . TKRN History of anemia 12/22/2021 03/05/2023 Overview: 12/22/2021otto was also seen at [place] [facility] for abdominal cramping on November 26. Patient had a previous hemoglobin result of 10.5 on that date she is currently taking an iron supplement.TKRN documented as of this encounter (statuses as of 05/09/2023) [facility] History of Past illness Narrative* Problem Noted Date Diagnosed Date Resolved Date with care elsewhere, antepartum 12/22/2021 03/05/2023 Overview: 12/22/2021atialex states she was previously seen by Dr. Lee in [place]. She was planning on transferring to a doctor in [place] but they were not accepting late transfer of care. She has seen Dr. Reyna in [place] for 1 visit. She states she wants a delivery in [place] so desires to transfer care here. Was seen in October 2020 for a miscarriage by Dr. Soria. I have advised patient that we need to get her medical records from Dr. Lee. I have given her the fax number for our office to have the records sent here.Patient denies any problems today. She states the baby has been active.Sarah Angelo RN UTI (urinary tract infection ) in , antepartum 12/22/2021 03/05/2023 Overview: 12/22/2021otto was seen at [facility] on December [address] Galloway for UTI in . She states she started taking the antibiotic 2 days ago that was prescribed December 13 for the urinary tract infection. I have discussed with her the importance of treating a urinary tract infection in . TKRN History of anemia 12/22/2021 03/05/2023 Overview: 12/22/2021otto was also seen at [facility] for abdominal cramping on November 26. Patient had a previous hemoglobin result of 10.5 on that date she is currently taking an iron supplement.TKRN documented as of this encounter (statuses as of 05/23/2023) [facility] History of Past illness Narrative* Problem Noted Date Diagnosed Date Resolved Date with care elsewhere, antepartum 12/22/2021 03/05/2023 Overview: 12/22/2021atialex states she was previously seen by Dr. Lee in [place]. She was planning on transferring to a doctor in [place] but they were not accepting late transfer of care. She has seen Dr. Reyna in [place] for 1 visit. She states she wants a delivery in [place] so desires to transfer care here. Was seen in October 2020 for a miscarriage by Dr. Soria. I have advised patient that we need to get her medical records from Dr. Lee. I have given her the fax number for our office to have the records sent here.Patient denies any problems today. She states the baby has been active.Sarah Angelo RN UTI (urinary tract infection ) in , antepartum 12/22/2021 03/05/2023 Overview: 12/22/2021otto was seen at [facility] on December [address] Galloway for UTI in . She states she started taking the antibiotic 2 days ago that was prescribed December 13 for the urinary tract infection. I have discussed with her the importance of treating a urinary tract infection in . TKRN History of anemia 12/22/2021 03/05/2023 Overview: 12/22/2021atialex was also seen at [facility] for abdominal cramping on November 26. Patient had a previous hemoglobin result of 10.5 on that date she is currently taking an iron supplement.TKRN documented as of this encounter (statuses as of 08/27/2023) [facility] Miscellaneous Notes* Quick Notes - Sarah Angelo RN - 12/22/2021 12:42 PM EDT DISTANCE HEALTH VISIT This Team Access Model visit is a phone encounter. It required patient-provider interaction for themedical decision making as documented below. Father of the baby is aware that she is but patient states he is not involved. She plans on keeping the baby. Patient states she was previously seen by Dr. Lee in [place]. She was planning on transferring to a doctor in [place] but they were not accepting late transfer of care. She has seen Dr. Reyna in [place] for 1 visit. She states she wants a delivery in [place] so desires to transfer care here. Was seen in October 2020 for a miscarriage by Dr. Soria. I have advised patient that we need to get her medical records from Dr. Lee. I have given her the fax number for our office to have the records sent here. Patient was seen at [facility] on December [address] Galloway for UTI in . She states she started taking the antibiotic 2 days ago that was prescribed December 13 for the urinary tract infection. I have discussed with her the importance of treating a urinary tract infection in . Patient was also seen at [place] [facility] for abdominal cramping on November 26. Patient had a previous hemoglobin result of 10.5on that date she is currently taking an iron supplement.Pt has a history of anxiety/depression diagnosed after her miscarriage that was treated by Dr. Soria. She is currently taking Zoloft. Discussed increased risks of depression during and and importance of reporting thedevelopment or worsening of symptoms should they occur.Pt denies ever having any suicidal thoughts or tendencies or thoughts of hurting others. Patient states she stopped vaping when she found out she was . Advised patient to continue not vaping or using nicotine during . Patient denies any problems today. She states the baby has been active.Sarah Angelo RN documented in this [facility] History of Present illness Narrative* Sarah Angelo RN - 12/22/2021 9:52 AM EDT # 1 - Date: 10[birth year]2020, Sex: None, Weight: None, GA: 7w0d, Delivery: None, Apgar1: None, Apgar5: None,Living: None, Comments: No D&C # 2 - Date: None, Sex: None, Weight: None, GA: None, Delivery: None, Apgar1: None, Apgar5: None, Living: None, Comments: None documented in this encounterChildren[facility] Miscellaneous Notes* Quick Notes - Rupert Reyna MD - 12/07/2021 8:25 PM EDT Pt is a transfer from [facility] at 31w6d of gestation. Has not seen any provider since 20 weeks of gestation. Was in [facility] ER several days ago for abdominal cramping. Her CBC was significant for anemia (Hct 30). Started on iron. Tdap given. Lab for syphilis drawn. anatomy US ordered. 1 h glucose test done. Pt signed release consent for her prior records to be transferred here. Baby is active, heart beat at 140s. MARBELLA wnl. RTO in 2 weeks. documented in this encounterChildren[facility]22 Nurse Note* Kathia Gustafson MA - 12/07/2021 1:35 PM EDT Movement? Active baby Vaginal Bleeding: NO Vaginal fluid leakage of fluid: YES/ NOTIFIED Contractions: no contractions [facility] note No data available for this section [facility] Evaluation note* Diagnosis Encounter for supervision of other normal in third trimester- Primary documented in this encounter [facility] note* Diagnosis Supervision of high risk in third trimester- Primary Unspecified high-risk Support system deficit Other psychological or physical stress, not elsewhere classified with care elsewhere, antepartum UTI (urinary tract infection) in , antepartum Infections of genitourinary tract antepartum History of anemia Personal history of diseases of blood and blood-forming organs History of depression Personal history of other mental disorder History of nicotine vaping [facility] this [facility]* Diagnosis with care elsewhere in third trimester- Primary Limited care in third trimester [facility]* Diagnosis Support system deficit- Primary Other psychological or physical stress, not elsewhere classified with care elsewhere, antepartum UTI (urinary tract infection) in , antepartum Infections of genitourinary tract antepartum History of anemia Personal history of diseases of blood and blood-forming organs History of depression Personal history of other mental disorder History of nicotine vaping documented [facility] this [facility]* Diagnosis Encounter for anatomic survey- Primary 36 weeks gestation of state, incidental documented [facility] this [facility]* Diagnosis with care elsewhere, antepartum- Primary History of anemia Personal history of diseases of blood and blood-forming organs 37 weeks gestation of state, incidental [facility] this [facility]* Diagnosis with care elsewhere, antepartum- Primary History of anemia Personal history of diseases of blood and blood-forming organs 40 weeks gestation of state, incidental COVID-19 affecting in third trimester documented [facility] this encounter [facility]* Diagnosis care and examination immediately after delivery- Primary documented in this [facility]* Diagnosis hypertension- Primary Unspecified hypertension, condition or complication documented [facility] this [facility]* Diagnosis Encounter for supervision of other normal in first trimester- Primary Short interval between pregnancies affecting , antepartum Hx of preeclampsia, prior , currently with other poor obstetric history Nausea and vomiting during 8 weeks gestation of state, incidental documented [facility] this [facility]* Diagnosis 12 weeks gestation of - Primary state, incidental Nausea and vomiting of , antepartum Unspecified vomiting of , antepartum Encounter for screening of mother Unspecified screening documented [facility]* Diagnosis Encounter for (NT) nuchal translucency scan- Primary Other specified screening 12 weeks gestation of state, incidental documented in this [facility]* Diagnosis 27 weeks gestation of - Primary state, incidental Short interval between pregnancies affecting , antepartum Encounter for supervision of other normal in second trimester Need for vaccination Need for prophylactic vaccination and inoculation against unspecified single disease documented in this encounter [facility]* Diagnosis Reaction to insect bite- Primary documented [facility] this [facility]* Diagnosis 28 weeks gestation of - Primary state, incidental Short interval between pregnancies affecting , antepartum Encounter for supervision of other normal in second trimester documented in this encounter [facility] note* Diagnosis Encounter for supervision of other normal , third trimester- Primary 29 weeks gestation of state, incidental documented in this [facility]* Diagnosis 31 weeks gestation of - Primary state, incidental documented in this [facility]* Diagnosis Hx of preeclampsia, prior , currently - Primary with other poor obstetric history Encounter for supervision of other normal in third trimester 37 weeks gestation of state, incidental [facility]* Diagnosis 38 weeks gestation of - Primary state, incidental Hx of preeclampsia, prior , currently with other poor obstetric history documented in this encounter [facility]* Diagnosis 39 weeks gestation of - Primary state, incidental Encounter for supervision of other normal in third trimester documented in this encounter [facility]* Diagnosis control counseling- Primary General counseling for initiation of other contraceptive measures Encounter for screening for maternal depression Laceration of labial mucosa without complication, initial encounter documented in this encounter [facility] for referral (narrative)* Diagnostic Procedure Only (Routine) - Pending Review Specialty Diagnoses / Procedures Referred By Nohemi merrill Referred To Contact [facility] Diagnoses Encounter for supervision of other normal in third trimester Procedures OBSTETRIC ULTRASOUND WHI US PREG UTERUS AFTER 1ST TRIMEST GESTATION Rupert Reyna MD [address] [facility] [address] [place] [address] [address] Referral ID Status Reason Start Date Expiration Date Visits Requested Visits Authorized [id number] Pending Review Auto-Generat ed Referral 12/07/2021 12/07/2022 1 1 [facility] for referral (narrative)* Diagnostic Procedure Only (Routine) - Authorized Specialty Diagnoses / Procedures Referred By Andreeaac t Referred To Contact [facility] Diagnoses with care elsewhere in third trimester Limited care in third trimester Procedures OBSTETRIC ULTRASOUND WHI US PREG UTERUS AFTER 1ST TRIMEST GESTATION Gema Charles MD [address] [place] [address] [address] Referral ID Status Reason Start Date Expiration Date Visits Requested Visits Authorized [id number] Authorized Auto-Generat ed Referral 12/26/2021 12/26/2022 1 1 [facility] for referral (narrative)* Diagnostic Procedure Only (Routine) - Pending Review Specialty Diagnoses / Procedures Referred By Andreeaac t Referred To Contact [facility] Diagnoses with uncertain dates in first trimester Short interval between pregnancies affecting , antepartum Hx of preeclampsia, prior , currently Encounter for supervision of other normal in first trimester Procedures NUCHAL TRANSLUCENCY WHI US NUCHAL TRANSLUCENCY 1ST GESTATION Jade Galloway MD [address] [place] [address] [address] Referral ID Status Reason Start Date Expiration Date Visits Requested Visits Authorized [id number] Pending Review Auto-Generat ed Referral 10/03/2022 10/03/2023 1 1 [facility] for referral (narrative)* Diagnostic Procedure Only (Routine) - Pending Review Specialty Diagnoses / Procedures Referred By Nohemi t Referred To Contact [facility] Diagnoses 12 weeks gestation of Encounter for screening of mother Procedures OBSTETRIC ULTRASOUND WHI US PREG UTERUS AFTER 1ST TRIMEST GESTATION Jade Galloway MD [address] [place] [place] [address] [facility] [address] [place] [address] Referral ID Status Reason Start Date Expiration Date Visits Requested Visits Authorized [id number] Pending Review Auto-Generat ed Referral 11/01/2022 11/01/2023 1 1 [facility] for referral (narrative)* Outpatient Procedure (Routine) - Pending Review Specialty Diagnoses / Procedures Referred By Nohemi merrill Referred To Contact [facility] Diagnoses control counseling Procedures INSERT INTRAUTERINE DEVICE LEVONORGESTREL IU 52MG 5 YR INSERT INTRAUTERINE DEVICE Juancho Peraza APRN.CNM [address] [place] [address] [facility] [address] [place] [address] Referral ID Status Reason Start Date Expiration Date Visits Requested Visits Authorized [id number] Pending Review Auto-Generat ed Referral 05/22/2023 05/21/2024 1 1 [facility] Summary Purpose Family History No Family History Records FoundNo Family History Records FoundNo Family History Records FoundNo Family History Records FoundNo Family History Records FoundNo Family History Records Found Advance Directives No Advanced Directives Records FoundDocuments on File Type Date Recorded Patient Channel Turner Expl anation Advance Directive(s) 11/26/2021 2:00 AM Documents on File Type Date Recorded Patient Channel Turner Expl anation Advance Directive(s) 11/26/2021 2:00 AM Documents on File Type Date Recorded Patient Channel Turner Expl anation Advance Directive(s) 02/10/2022 12:59 AM Advance Directive(s) 11/26/2021 2:00 AM Health Concerns Problem Noted Date OB Reminders 12/26/2021 Problem Noted Date OB Reminders 12/26/2021 Problem Noted Date OB Reminders 12/26/2021 Problem Noted Date OB Reminders 12/26/2021 Problem Noted Date OB Reminders 12/26/2021 Problem Noted Date OB Reminders 12/26/2021 Problem Noted Date OB Reminders 12/26/2021 Problem Noted Date OB Reminders 12/26/2021 Problem Noted Date OB Reminders 12/26/2021 Problem Noted Date OB Reminders 12/26/2021 Problem Noted Date OB Reminders 12/26/2021 OB Reminders 10/03/2022 Problem Noted Date OB Reminders 12/26/2021 OB Reminders 10/03/2022 Problem Noted Date OB Reminders 12/26/2021 OB Reminders 10/03/2022 Problem Noted Date OB Reminders 12/26/2021 OB Reminders 10/03/2022 Problem Noted Date Diagnosed Date OB Reminders 12/26/2021 OB Reminders 10/03/2022 Problem Noted Date Diagnosed Date OB Reminders 12/26/2021 OB Reminders 10/03/2022 Problem Noted Date Diagnosed Date OB Reminders 12/26/2021 OB Reminders 10/03/2022 Problem Noted Date Diagnosed Date OB Reminders 12/26/2021 OB Reminders 10/03/2022 Problem Noted Date Diagnosed Date OB Reminders 12/26/2021 OB Reminders 10/03/2022 Problem Noted Date Diagnosed Date OB Reminders 12/26/2021 OB Reminders 10/03/2022 Problem Noted Date Diagnosed Date OB Reminders 12/26/2021 OB Reminders 10/03/2022 Problem Noted Date Diagnosed Date OB Reminders 12/26/2021 OB Reminders 10/03/2022 Medications Administered Section Inactive Administered Medications - up to 3 most recent administrations Medication Order MAR Action Action Date Dose Rate Site betamethasone acetate-betamethasone sodium phosphate 12 mg injection (CELESTONE) 12 mg, INTRAMUSCULAR, ONCE, 1 dose, On Sun02/20/23 at 1030, Protect From Light. Given 02/20/2023 10:24 AM EDT 12 mg Buttocks, Right Additional Source Comments INFORMATION SOURCE (unrecogn ized section and content) DATE CREATED AUTHOR AUTHOR'S ORGANIZ ATION 12/02/2021 [facility] DATE CREATED AUTHOR AUTHOR'S ORGANIZ ATION 02/13/2022 [facility] DATE CREATED AUTHOR AUTHOR'S ORGANIZ ATION 06/03/2022 [facility] DATE CREATED AUTHOR AUTHOR'S ORGANIZ ATION 11/03/2022 [facility] ([place]) DATE CREATED AUTHOR AUTHOR'S MARSHAL ATION 08/29/2023 [facility] Source Comments (unrecognize d section and content) In the event this informatio n is protected by the Federal Confidentiality of Alcohol and Drug Abuse Patient Records regulations: The Federal rules restrict any use of the information to criminally investigate or prosecute any alcohol or drug abuse patient.[facility] RehabilitationIn the event this information is protected by the Federal Confidentiality of Alcohol and Drug Abuse Patient Records regulations: The Federal rules restrict any use of the information to criminally investigate or prosecute any alcohol or drug abuse patient.[facility] RehabilitationIn the event this information is protected by the Federal Confidentiality of Alcohol and Drug Abuse Patient Records regulations: The Federal rules restrict any use of the information to criminally investigate or prosecute any alcohol or drug abuse patient.[facility] RehabilitationIn the event this information is protected by the Federal Confidentiality of Alcohol and Drug Abuse Patient Records regulations: The Federal rules restrict any use of the information to criminally investigate or prosecute any alcohol or drug abuse patient.[facility] RehabilitationIn the event this information is protected by the Federal Confidentiality of Alcohol and Drug Abuse Patient Records regulations: The Federal rules restrict any use of the information to criminally investigate or prosecute any alcohol or drug abuse patient.[facility] RehabilitationIn the event this information is protected by the Federal Confidentiality of Alcohol and Drug Abuse Patient Records regulations: The Federal rules restrict any use of the information to criminally investigate or prosecute any alcohol or drug abuse patient.[facility] RehabilitationIn the event this information is protected by the Federal Confidentiality of Alcohol and Drug Abuse Patient Records regulations: The Federal rules restrict any use of the information to criminally investigate or prosecute any alcohol or drug abuse patient.[facility] RehabilitationIn the event this information is protected by the Federal Confidentiality of Alcohol and Drug Abuse Patient Records regulations: The Federal rules restrict any use of the information to criminally investigate or prosecute any alcohol or drug abuse patient.[facility] RehabilitationIn the event this information is protected by the Federal Confidentiality of Alcohol and Drug Abuse Patient Records regulations: The Federal rules restrict any use of the information to criminally investigate or prosecute any alcohol or drug abuse patient.[facility] RehabilitationIn the event this information is protected by the Federal Confidentiality of Alcohol and Drug Abuse Patient Records regulations: The Federal rules restrict any use of the information to criminally investigate or prosecute any alcohol or drug abuse patient.[facility] RehabilitationIn the event this information is protected by the Federal Confidentiality of Alcohol and Drug Abuse Patient Records regulations: The Federal rules restrict any use of the information to criminally investigate or prosecute any alcohol or drug abuse patient.[facility] RehabilitationIn the event this information is protected by the Federal Confidentiality of Alcohol and Drug Abuse Patient Records regulations: The Federal rules restrict any use of the information to criminally investigate or prosecute any alcohol or drug abuse patient.[facility] RehabilitationIn the event this information is protected by the Federal Confidentiality of Alcohol and Drug Abuse Patient Records regulations: The Federal rules restrict any use of the information to criminally investigate or prosecute any alcohol or drug abuse patient.[facility] RehabilitationIn the event this information is protected by the Federal Confidentiality of Alcohol and Drug Abuse Patient Records regulations: The Federal rules restrict any use of the information to criminally investigate or prosecute any alcohol or drug abuse patient.[facility] RehabilitationIn the event this information is protected by the Federal Confidentiality of Alcohol and Drug Abuse Patient Records regulations: The Federal rules restrict any use of the information to criminally investigate or prosecute any alcohol or drug abuse patient.[facility] RehabilitationIn the event this information is protected by the Federal Confidentiality of Alcohol and Drug Abuse Patient Records regulations: The Federal rules restrict any use of the information to criminally investigate or prosecute any alcohol or drug abuse patient.[facility] RehabilitationIn the event this information is protected by the Federal Confidentiality of Alcohol and Drug Abuse Patient Records regulations: The Federal rules restrict any use of the information to criminally investigate or prosecute any alcohol or drug abuse patient.[facility] RehabilitationIn the event this information is protected by the Federal Confidentiality of Alcohol and Drug Abuse Patient Records regulations: The Federal rules restrict any use of the information to criminally investigate or prosecute any alcohol or drug abuse patient.[facility] RehabilitationIn the event this information is protected by the Federal Confidentiality of Alcohol and Drug Abuse Patient Records regulations: The Federal rules restrict any use of the information to criminally investigate or prosecute any alcohol or drug abuse patient.[facility] RehabilitationIn the event this information is protected by the Federal Confidentiality of Alcohol and Drug Abuse Patient Records regulations: The Federal rules restrict any use of the information to criminally investigate or prosecute any alcohol or drug abuse patient.[facility] RehabilitationIn the event this information is protected by the Federal Confidentiality of Alcohol and Drug Abuse Patient Records regulations: The Federal rules restrict any use of the information to criminally investigate or prosecute any alcohol or drug abuse patient.[facility] RehabilitationIn the event this information is protected by the Federal Confidentiality of Alcohol and Drug Abuse Patient Records regulations: The Federal rules restrict any use of the information to criminally investigate or prosecute any alcohol or drug abuse patient.[facility] RehabilitationIn the event this information is protected by the Federal Confidentiality of Alcohol and Drug Abuse Patient Records regulations: The Federal rules restrict any use of the information to criminally investigate or prosecute any alcohol or drug abuse patient.[facility] RehabilitationIn the event this information is protected by the Federal Confidentiality of Alcohol and Drug Abuse Patient Records regulations: The Federal rules restrict any use of the information to criminally investigate or prosecute any alcohol or drug abuse patient.[facility] RehabilitationIn the event this information is protected by the Federal Confidentiality of Alcohol and Drug Abuse Patient Records regulations: The Federal rules restrict any use of the information to criminally investigate or prosecute any alcohol or drug abuse patient.[facility] RehabilitationIn the event this information is protected by the Federal Confidentiality of Alcohol and Drug Abuse Patient Records regulations: The Federal rules restrict any use of the information to criminally investigate or prosecute any alcohol or drug abuse patient.[facility] RehabilitationIn the event this information is protected by the Federal Confidentiality of Alcohol and Drug Abuse Patient Records regulations: The Federal rules restrict any use of the information to criminally investigate or prosecute any alcohol or drug abuse patient.[facility] RehabilitationIn the event this information is protected by the Federal Confidentiality of Alcohol and Drug Abuse Patient Records regulations: The Federal rules restrict any use of the information to criminally investigate or prosecute any alcohol or drug abuse patient.[facility] RehabilitationIn the event this information is protected by the Federal Confidentiality of Alcohol and Drug Abuse Patient Records regulations: The Federal rules restrict any use of the information to criminally investigate or prosecute any alcohol or drug abuse patient.[facility] RehabilitationIn the event this information is protected by the Federal Confidentiality of Alcohol and Drug Abuse Patient Records regulations: The Federal rules restrict any use of the information to criminally investigate or prosecute any alcohol or drug abuse patient.[facility] RehabilitationIn the event this information is protected by the Federal Confidentiality of Alcohol and Drug Abuse Patient Records regulations: The Federal rules restrict any use of the information to criminally investigate or prosecute any alcohol or drug abuse patient.[facility] RehabilitationIn the event this information is protected by the Federal Confidentiality of Alcohol and Drug Abuse Patient Records regulations: The Federal rules restrict any use of the information to criminally investigate or prosecute any alcohol or drug abuse patient.[facility] RehabilitationIn the event this information is protected by the Federal Confidentiality of Alcohol and Drug Abuse Patient Records regulations: The Federal rules restrict any use of the information to criminally investigate or prosecute any alcohol or drug abuse patient.[facility] Reason for Visit (unrecogniz ed section and content) Reason Comments Care Reason Comments Initial OB Visit Reason Comments Care Coordination PRAF Reason Comments US Specialty Diagnoses / Procedures Referred By Contac t Referred To Contact [facility] Diagnoses with care elsewhere in third trimester Limited care in third trimester Procedures OBSTETRIC ULTRASOUND WHI US PREG UTERUS AFTER 1ST TRIMEST GESTATION Gema Charles MD [address] [place] [address] [facility] [address] [place] [address] Referral ID Status Reason Start Date Expiration Date V isits Requested Visits Authorized [id number] Closed Auto-Generate d Referral 12/26/2021 12/26/2022 1 1 Reason Comments OB Vomiting/Diarrhea Reason Onset Date Comments Care 01/17/2022 Reason Onset Date Comments Care 02/06/2022 Reason Comments Ob Delivery Note Reason Comments Orders Reason Comments Medication Question Reason Comments blood pressure Reason Comments Care Reason Comments Early Reason Comments Refill Request 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 Reason Comments Patient Question Reason Onset Date Comments Care 11/01/2022 Specialty Diagnoses / Procedures Referred By Nhoemi t Referred To Contact [facility] Diagnoses Encounter for supervision of other normal in third trimester Procedures OBSTETRIC ULTRASOUND WHI US PREG UTERUS AFTER 1ST TRIMEST GESTATION Rupert Reyna MD [address] [place] [address] [facility] [address] [place] [address] Referral ID Status Reason Start Date Expiration Date V isits Requested Visits Authorized [id number] Closed Auto-Generate d Referral 12/07/2021 12/07/2022 1 1 Reason Onset Date Comments Care 02/14/2023 Reason Comments Insect Bite Located on right leg . X 5 hours. Currently 27 weeks . Reason Onset Date Comments Care 02/20/2023 Reason Onset Date Comments Refill Request 02/22/2023 Reason Onset Date Comments Care 03/01/2023 Reason Onset Date Comments Care 03/16/2023 Reason Onset Date Comments Care 04/23/2023 Reason Onset Date Comments Care 04/30/2023 Reason Onset Date Comments Care 05/07/2023 Reason Comments Early Reason Comments bleeding since iud Care Teams (unrecognized sec tion and content) Manager Fitness Relationship Specialty Start Date End Date PediaLissy salazar [facility] PCP - General 02/20/19 Manager Fitness Relationship Specialty Start Date End Date Pediactmichael [place] [facility] PCP - General 02/20/19 Manager Fitness Relationship Specialty Start Date End Date PediactLissy rodriguez [facility] PCP - General 02/20/19 Manager Fitness Relationship Specialty Start Date End Date PediactLissy rodriguez [facility] PCP - General 02/20/19 Manager Fitness Relationship Specialty Start Date End Date Pediactmichael [place] [facility] PCP - General 02/20/19 Manager Fitness Relationship Specialty Start Date End Date Pediactrics, [facility] PCP - General 02/20/19 Manager Fitness Relationship Specialty Start Date End Date Pediactrics, [facility] PCP - General 02/20/19 Manager Fitness Relationship Specialty Start Date End Date Pediactrics, [facility] PCP - General 02/20/19 Manager Fitness Relationship Specialty Start Date End Date Pediactrics, [facility] PCP - General 02/20/19 Manager Fitness Relationship Specialty Start Date End Date Pediactrics, [facility] PCP - General 02/20/19 Manager Fitness Relationship Specialty Start Date End Date Pediactrics, [facility] PCP - General 02/20/19 Manager Fitness Relationship Specialty Start Date End Date Pediactrics, [facility] PCP - General 02/20/19 Manager Fitness Relationship Specialty Start Date End Date Pediactrics, [facility] PCP - General 02/20/19 Manager Fitness Relationship Specialty Start Date End Date Pediactrics, [facility] PCP - General 02/20/19 Manager Fitness Relationship Specialty Start Date End Date Pediactrics, [facility] PCP - General 02/20/19 Manager Fitness Relationship Specialty Start Date End Date Pediactrics, [place] [facility] PCP - General 02/20/19 Manager Fitness Relationship Specialty Start Date End Date Pediactrics, [facility] PCP - General 02/20/19 Manager Fitness Relationship Specialty Start Date End Date Pediactrics, [facility] PCP - General 02/20/19 Manager Fitness Relationship Specialty Start Date End Date Pediactrics, [facility] PCP - General 02/20/19 Manager Fitness Relationship Specialty Start Date End Date Pediactrics, [facility] PCP - General 02/20/19 Manager Fitness Relationship Specialty Start Date End Date Pediactrics, [place] [facility] PCP - General 02/20/19 Manager Fitness Relationship Specialty Start Date End Date Pediactrics, [facility] PCP - General 02/20/19 FOR RECORDS PERTAINING TO PATIENTS WHO ARE OR HAVE BEEN ENROLLED IN A CHEMICAL DEPENDENCY/SUBSTANCEABUSE PROGRAM, SOME INFORMATION MAY BE OMITTED. This clinical summary was aggregated from multiple sources. Caution should be exercised in using it in the provision of clinical care. This summary normalizes information from multiple sources, and as a consequence, information in this document may materially change the coding, format and clinical context of patient data. In addition, data may be omitted in some cases. CLINICAL DECISIONS SHOULD BE BASED ON THE PRIMARY CLINICAL RECORDS. [facility]. provides no warranty or guarantee of the accuracy or completeness of information in this document.
== END 2023-09-14 22:36 | disposition home or self-care (01) ==
LOC: ED 22:22
PROVIDERS: Emergency Provider Emergency Medicine; Visit Provider Emergency Medicine
DX: K04.7 Periapical abscess without sinus (principal); Z87.891 Personal history of nicotine dependence; M26.609 Unspecified temporomandibular joint disorder, unspecified side
CPT/HCPCS: 99283

== ENCOUNTER 2023-12-01 15:36 | Emergency (ER) | payer MEDICAID, SELFPAY ==
[2023-12-01 15:37] VITALS: BP 128/84; PULSE 112; RESP 16; TEMP 36.3; O2SAT 97; BMI 24.8
--- NOTE | 2023-12-01 15:47 | EDS_ITS ---
HPI History of Present Illness Chief Complaint: Lower Extremity Injury Narrative Narrative: 23-year-old female presenting with left foot pain. She states that she dropped a 24 pack of Coke on her foot and landed on the middle of her foot on the dorsum. Patient ambulatory with antalgic gait. No ankle pain. No numbness or tingling. Slight bruising noted to the midfoot. Patient has not taken anything for pain and declines analgesia. [facility] Medical History Anxiety Bipolar 1 disorder History of nicotine vaping Diarrhea during SAB (spontaneous ) Home Medications ?Medication ?Instructions ?Recorded ?Last Taken ?Type brexpiprazole 1 mg tablet (Rexulti) 1 mg PO DAILY 12/01/23 Unknown History spironolactone 25 mg tablet 25 mg PO BID 12/01/23 Unknown History Allergy/AdvReac Type Severity Reaction Status Date / Time cider vinegar Allergy Food Verified 12/01/23 15:37 Allergy Family History Grandfather Diabetes Hypertension Social History Smoking Status: Current every day smoker tobacco type: e-cigarettes alcohol intake: never substance use type: does not use caffeine: Yes what type of physical activity do you participate in: none seatbelt use: always do you feel safe at home: Yes ROS ROS ED Constitutional Constitutional ED: Denies chills, fever(s) or sweats Eyes Eyes: Denies blurry vision or change in vision ENT ENT ED: Denies ear pain or sore throat Cardiovascular Cardiovascular: Denies chest pain, palpitations or racing heartbeat Respiratory/Chest Respiratory/Chest: Denies cough, dyspnea or sputum Gastrointestinal Gastrointestinal: Denies abdominal pain, constipation, diarrhea, nausea or vomiting Genitourinary Genitourinary ED: Denies dysuria, hematuria or urinary frequency Musculoskeletal Musculoskeletal: Reports other Details: Left foot pain ; Denies arthralgias, myalgias or neck pain Integumentary Reports other Details: Bruising to left midfoot ; Denies abscess, Abrasions or rash Neurologic Neurologic: Denies headache(s), paresthesias or weakness Psychiatric Psychiatric: Denies anxiety, depression, suicidal ideation or suicidal thoughts Endocrine Endocrinology: Denies polydipsia or polyuria EXAM Physical Exam Const Vital Signs: 12/01/23 15:37 Temperature 97.3 F L Temperature Source Temporal Pulse Rate 112 H Respiratory Rate 16 Blood Pressure 128/84 H Blood Pressure Mean 98 Pulse Ox 97 Positive well nourished General Appearance ED: NAD HEENT normocephalic and atraumatic Resp normal respiratory effort Extremity Extremity Narrative: Tenderness palpation of the dorsum of the left midfoot. No obvious deformities. Neurovascularly intact. No pain at base of the fifth metatarsal. Patient has normal dorsiflexion and plantarflexion. Neuro oriented x3 Sensorium / Orientation: alert Motor Exam: strength 5/5 throughout Psych mental status grossly normal Skin Lesions: no lesions MDM MDM MDM Narrative Medical decision making narrative: Please 3-year-old female presenting with left foot pain after dropping a case of soda on her foot. She is able to ambulate with antalgic gait. Differential includes foot contusion, foot fracture. Patient declines analgesia. X-ray of the foot was obtained and on my interpretation shows no acute fracture. Radiology interprets this and agrees. Patient counseled to ice, elevate, use Tylenol and ibuprofen. Return precautions discussed. Impression: 1 left foot contusion Lab Data Attestation: I reviewed the patient's lab results. Radiography Diagnostic Testing: Clinical Impression(s) from Imaging Studies Foot X-Ray 12/01/23 16:00 IMPRESSION: Mild diffuse soft tissue swelling without associated acute fracture or dislocation. Electronically Signed: Robert Bradshaw MD at 16:27 EDT Reading Location ID and State: [facility] / [place] Tel , Service support , Discharge Plan Triage Chief Complaint: Lower Extremity Injury ED Provider: Moris Gonsalves Dx/Rx/DC Orders Instructions: ED Foot Contusion Prescriptions: No Action spironolactone 25 mg tablet 25 mg PO BID Rexulti 1 mg tablet 1 mg PO DAILY Primary Care Provider: Care Physician,No Primary Referrals: [facility] [Outside] - 3-5 Days Care Physician,No Primary [Primary Care Provider] - Print Language: Khmer Disposition Disposition: Home, Self Care
--- NOTE | 2023-12-01 16:00 | RAD_ITS ---
STUDY: X-RAY - LEFT FOOT CLINICAL: Female, 23 years old. pain TECHNIQUE: 3 view(s) of the foot. COMPARISON: None. FINDINGS: Normal talus, calcaneus, and tarsal bones. Normal visualized subtalar, talonavicular, calcaneocuboid, tarsal and tarsometatarsal articulations. Normal metatarsi. Normal metatarsophalangeal joint of the great toe. Normal tibial and fibular sesamoid bones. Normal interphalangeal joint of the great toe. Normal phalanges of the great toe. Normal second through fifth metatarsophalangeal joints. Normal interphalangeal joints and phalanges of the lesser toes. Mild diffuse soft tissue swelling of the dorsal foot. RAD/Foot min 3 Views IMPRESSION: Mild diffuse soft tissue swelling without associated acute fracture or dislocation. Electronically Signed: Robert Bradshaw MD at 16:27 EDT ,
[2023-12-01 16:39] VITALS: BP 128/81; PULSE 79; RESP 16; TEMP 36.8; O2SAT 98
== END 2023-12-01 16:40 | disposition home or self-care (01) ==
PROVIDERS: Emergency Provider Student in an Organized Health Care Education/Training Program; Visit Provider Student in an Organized Health Care Education/Training Program
DX: S90.32XA Contusion of left foot, initial encounter (principal); W20.8XXA Other cause of strike by thrown, projected or falling object, initial encounter; F17.290 Nicotine dependence, other tobacco product, uncomplicated
CPT/HCPCS: 73630; 99282

== ENCOUNTER 2024-11-19 00:29 | Emergency (ER) | payer MEDICAID, SELFPAY ==
[2024-11-19 00:34] VITALS: BP 132/60; PULSE 81; RESP 16; TEMP 36.9; O2SAT 100; BMI 29.9
[2024-11-19 01:35] LABS: hCG Titer Quant., Serum 3136 mIU/mL (<9 non-preg)
--- NOTE | 2024-11-19 01:54 | EDS_ITS ---
HPI HPI - Female History of Present Illness Chief Complaint: Informant: patient Narrative Narrative: Patient is a G2, P0 with 1 spontaneous miscarriage who states that she is roughly 5 weeks based on her last menstrual cycle. She states she has had an outpatient ultrasound which confirmed an IUP. She reports that for the first few weeks she was having significant bouts of nausea. However in the last 1 to 2 days she states that the nausea has resolved. She denies any vaginal discharge or bleeding. She states that based on her previous history of miscarriage and the fact that she is no longer nauseous she is concerned that she is no longer and therefore comes to the hospital for evaluation [facility] Medical History Anxiety Bipolar 1 disorder History of nicotine vaping Diarrhea during SAB (spontaneous ) Home Medications ?Medication ?Instructions ?Recorded ?Last Taken ?Type hydroxyzine HCl 25 mg tablet 25 mg PO TID PRN anxiety 11/19/24 Unknown History Allergy/AdvReac Type Severity Reaction Status Date / Time cider vinegar Allergy Food Verified 11/19/24 00:33 Allergy Family History Grandfather Diabetes Hypertension Social History Smoking Status: Current every day smoker tobacco type: e-cigarettes alcohol intake: never substance use type: does not use caffeine: Yes what type of physical activity do you participate in: none seatbelt use: always do you feel safe at home: Yes ROS ROS ED Constitutional Constitutional ED: Denies chills or fever(s) Eyes Eyes: Denies change in vision ENT ENT ED: Denies sore throat Cardiovascular Cardiovascular: Denies chest pain Respiratory/Chest Respiratory/Chest: Denies cough or dyspnea Gastrointestinal Gastrointestinal: Denies abdominal pain, diarrhea, nausea or vomiting Genitourinary Genitourinary ED: Reports other Details: Negative vaginal bleeding ; Denies dysuria or hematuria Musculoskeletal Musculoskeletal: Denies myalgias Integumentary Denies rash Neurologic Neurologic: Denies headache(s) Psychiatric Psychiatric: Reports anxiety Hematologic/Lymphatic Hematologic/Lymphatic: Denies easy bleeding or easy bruising EXAM Physical Exam Const Vital Signs: 11/19/24 00:34 05/07/25 01:57 Temperature 98.4 F 98.5 F Temperature Source Oral Pulse Rate 81 84 Respiratory Rate 16 16 Blood Pressure 132/60 H 113/52 L Blood Pressure Mean 84 72 Pulse Ox 100 100 Oxygen Delivery Method Room Air Positive well nourished and well developed General Appearance ED: well developed; Negative for pallor HEENT HEENT Narrative: Normocephalic atraumatic Eyes PERRL and EOMs intact bilaterally General Eye ED: Negative for scleral icterus Neck supple Resp normal respiratory effort and clear to auscultation bilaterally Cardio regular rate and regular rhythm GI normal to inspection, nondistended, normoactive bowel sounds, soft to palpation, non-tender, non-distended and no masses Auscultation: normoactive bowel sounds Palpation: soft Back/Spine no CVA tenderness Extremity normal to inspection and full ROM Neuro oriented x3, CN's II-XII intact bilaterally and no sensory deficits noted Sensorium / Orientation: alert Motor Exam: strength 5/5 throughout Psych Mood & Affect: anxious Skin no rashes or lesions noted and no wounds General Skin Exam: Negative for jaundice or pallor MDM MDM MDM Narrative Medical decision making narrative: Patient arrived to the ER stable vitals. She reported that she has had spontaneous resolution of her nausea and secondary to this is concerned she is no longer . As the patient has already had an outpatient ultrasound which showed an IUP I do not feel there is need for emergent ultrasound as this outpatient report indicates patient does not have an ectopic and moreover she is not complaining of abdominal pain at this time. She does state that she had a short bout of pain along the left and right side that lasted a few minutes and resolved recently. As the patient is not having active bleeding or discharge concern for spontaneous miscarriage/incomplete miscarriage or PID is low and I do not feel there is need for vaginal swabs. The patient's hCG value was checked and is roughly 3000 which is consistent with her reported gestational age. I did elect to perform a bedside ultrasound which does show an IUP with yolk sac and pole. No heartbeat was noted at this time but this would correlate with a transabdominal approach and the early gestational age. On reevaluation she does not have any type of abdominal pain and vitals remained stable. Therefore at this time as bedside ultrasound is showing an IUP her hCG value correlates with her reported gestational age and she is not having vaginal bleeding indicating a potential miscarriage I do not feel there is need for emergent SPACE PHYSICIST consultation. Patient can follow-up with them as an outpatient but is otherwise safe for discharge History & Record Review Discussion w/independent historian: Patient Lab Data Attestation: I reviewed the patient's lab results. Labs: Laboratory Results - last 24 hr 11/19/24 00:53 HCG, Quant 3136 H Discharge Plan Triage Chief Complaint: ED Provider: Rasta Ayon Dx/Rx/DC Orders Clinical Impression: Abdominal pain during in first trimester, Bipolar disorder, Anxiety Instructions: ED Abdominal Pain, Early Prescriptions: No Action hydroxyzine HCl 25 mg tablet 25 mg PO TID PRN (Reason: anxiety) Primary Care Provider: Clemencia Rod NP Referrals: Clemencia Rod NP, OUTSIDE MACHINIST SUPERVISOR-C [Primary Care Provider] - Activity Restrictions/Additional Instructions: Please follow-up with your SPACE PHYSICIST for repeat evaluation. If you develop vaginal bleeding or increased pain or have any further concerns please return to the hospital. Print Language: Lao Disposition Disposition: Home, Self Care Discharge Date/Time: 11/19/24 01:58
[2024-11-19 01:57] VITALS: BP 113/52; PULSE 84; RESP 16; TEMP 36.9; O2SAT 100
== END 2024-11-19 01:58 | disposition home or self-care (01) ==
PROVIDERS: Emergency Provider Emergency Medicine; PCP Nurse Practitioner Family; Visit Provider Emergency Medicine
DX: O99.891 Other specified diseases and conditions complicating pregnancy (principal); F31.9 Bipolar disorder, unspecified; O99.341 Other mental disorders complicating pregnancy, first trimester; R11.0 Nausea; F41.9 Anxiety disorder, unspecified; R10.9 Unspecified abdominal pain; F17.290 Nicotine dependence, other tobacco product, uncomplicated; Z3A.00 Weeks of gestation of pregnancy not specified; O99.331 Smoking (tobacco) complicating pregnancy, first trimester
CPT/HCPCS: 84702; 99283; A4216

== ENCOUNTER 2024-11-21 19:35 | Emergency (ER) | payer MEDICAID, SELFPAY ==
[2024-11-21 19:36] VITALS: BP 137/104; PULSE 124; RESP 28; TEMP 36.1; O2SAT 100; BMI 28.4
--- NOTE | 2024-11-21 19:51 | EDS_ITS ---
HPI HPI - Female History of Present Illness Chief Complaint: Vag Bld, Preg Informant: patient Narrative Narrative: 24-year-old female arriving to the emergency room chief complaint of vaginal bleeding first trimester . Patient notes her last menstrual period was around October 10, 2024. She states that she had some pain in her pelvis last week. On September 13 she states she was seen by [facility] and had a pelvic ultrasound that showed a gestational sac. She states that she is supposed to have blood work done tomorrow. She states that last week she was also seen in the emergency and had a hCG level of around 5000. The patient states that tonight she felt the pain in her vaginal region and went to the bathroom and passed a clot and has had some light bleeding since. Patient notes she is G4, P2, AB 1. She sees [facility]. [facility] Medical History Anxiety Bipolar 1 disorder History of nicotine vaping Diarrhea during SAB (spontaneous ) Home Medications ?Medication ?Instructions ?Recorded ?Last Taken ?Type hydroxyzine HCl 25 mg tablet 25 mg PO TID PRN anxiety 11/19/24 Unknown History Allergy/AdvReac Type Severity Reaction Status Date / Time cider vinegar Allergy Food Verified 11/21/24 19:36 Allergy Family History Grandfather Diabetes Hypertension Social History Smoking Status: Current every day smoker tobacco type: e-cigarettes alcohol intake: never substance use type: does not use caffeine: Yes what type of physical activity do you participate in: none seatbelt use: always do you feel safe at home: Yes ROS ROS ED Constitutional Constitutional ED: Denies chills or weight loss Eyes Eyes: Denies change in vision or diplopia ENT ENT ED: Denies ear pain, rhinorrhea or sore throat Cardiovascular Cardiovascular: Denies chest pain, orthopnea, palpitations or racing heartbeat Respiratory/Chest Respiratory/Chest: Denies cough, dyspnea or orthopnea Gastrointestinal Gastrointestinal: Denies abdominal pain, diarrhea, nausea or vomiting Genitourinary Genitourinary ED: Reports other Details: Pelvic pain abnormal bleeding in first trimester ; Denies dysuria, hematuria or urinary frequency Musculoskeletal Musculoskeletal: Denies arthralgias or myalgias Integumentary Denies abscess or rash Neurologic Neurologic: Denies headache(s) or weakness Psychiatric Psychiatric: Reports anxiety; Denies depression, suicidal ideation or suicidal thoughts Endocrine Endocrinology: Denies polydipsia, polyphagia or polyuria Allergic/Immunologic Allergic/Immunologic ED: Denies mouth swelling, tongue swelling or urticaria EXAM Physical Exam Const Vital Signs: 11/21/24 19:36 11/21/24 21:35 Temperature 97 F L Temperature Source Temporal Pulse Rate 124 H 82 Respiratory Rate 28 H 18 Blood Pressure 137/104 H 106/68 Blood Pressure Mean 115 80 Pulse Ox 100 99 Oxygen Delivery Method Room Air Room Air Positive well nourished and well developed General Appearance ED: well developed and NAD HEENT Reports normocephalic, head/scalp atraumatic and moist mucous membranes Eyes PERRL and EOMs intact bilaterally Neck no lymphadenopathy, supple and no JVD Resp normal respiratory effort and clear to auscultation bilaterally Cardio regular rate, regular rhythm and no murmurs GI normal to inspection, nondistended, normoactive bowel sounds and non-tender Palpation: soft Back/Spine no CVA tenderness and normal ROM Extremity normal to inspection General Extremety ED: Negative for edema General Extremity: Negative for edema Neuro oriented x3 and CN's II-XII intact bilaterally Sensorium / Orientation: alert Motor Exam: strength 5/5 throughout Psych Mood & Affect: anxious and tearful; Negative for depressed Skin no rashes or lesions noted and no wounds MDM MDM MDM Narrative Medical decision making narrative: Differential diagnosis includes but not limited to blighted ovum miscarriage threatened miscarriage anxiety about health Due to chart review I see that the patient was seen not quite 48 hours ago. Her hCG level at that time was 3136. Tonight is 30-40. Hemoglobin 12.5. Formal pelvic ultrasound was obtained. History & Record Review Discussion w/independent historian: Patient Additional record(s) reviewed:: Prior ED visit and Prior labs Lab Data Attestation: I reviewed the patient's lab results. Labs: Laboratory Results - last 24 hr 11/21/24 20:11 Hgb 12.5 Hct 37.6 HCG, Quant 3240 H Blood Type O POSITIVE Discharge Plan Triage Chief Complaint: Vag Bld, Preg ED Provider: Darion Mora Dx/Rx/DC Orders Prescriptions: No Action hydroxyzine HCl 25 mg tablet 25 mg PO TID PRN (Reason: anxiety) Primary Care Provider: Clemencia Rod NP Referrals: Clemencia Rod NP, TAFFY CANDY MAKER-C [Primary Care Provider] - Print Language: [place] Citizen
--- NOTE | 2024-11-21 19:52 | US_ITS ---
PROCEDURE: TRANSVAGINAL W/PREG US 11/21/2024 REASON FOR EXAM: FIRST TRIMESTER BLEEDING TECHNIQUE: Transvaginal ultrasound COMPARISON: None FINDINGS: Comments: Number of Gestational Sacs: 1 Gestational Sac Shape: Normal Number of Fetuses: 1 Heart Rate: (average) Survey of Visible Anatomic Structures: Grossly unremarkable for gestational age. Yolk Sac: Present and unremarkable. Placenta: Presently not well-visualized Amniotic Fluid Volume: Subjectively normal for gestational age. Small subchorionic hematoma noted, which measures 3 x 3 x 2 mm. Uterine Abnormalities: Maternal uterus is unremarkable. Measures 8.7 x 6.1 x 5.0 cm Ovaries / Adnexa: Both maternal ovaries are visualized and unremarkable. Right ovary measures 2.5 x 1.8 x 1.8 cm and left ovary measures 2.1 x 2.0 x 2.1 cm DIMENSIONS: Parameter Measurement / EGA [place] Rump Length: 2.4 mm/6 weeks 0 days Gestational Sac: 10 mm/5 weeks 5 days Yolk Sac: 1.4 mm/ No detectable heart rate. ESTIMATED GESTATIONAL AGE: By Ultrasound: 5 weeks 6 days By LMP: 6 weeks 2 days ESTIMATED DATE OF DELIVERY: By Ultrasound: 07/18/2025 By LMP: 07/15/2025 US/Transvaginal w/Preg US IMPRESSION: No detectable heart rate, likely secondary to early gestational age. Rec ommend short-term follow-up in 1-2 weeks. Small subchorionic hematoma. Reading Location: [facility]
[2024-11-21 20:15] LABS: Hematocrit 37.6 % (37-47); Hemoglobin 12.5 g/dL (12.0-15.0)
[2024-11-21 20:50] LABS: hCG Titer Quant., Serum 3240 mIU/mL (<9 non-preg)
[2024-11-21 21:35] VITALS: BP 106/68; PULSE 82; RESP 18; O2SAT 99
[2024-11-21 23:00] VITALS: BP 106/61; PULSE 72; O2SAT 99
[2024-11-21] MEDS: Acetaminophen 325 MG Tablet 650 MG PO (23:31)
[2024-11-21 23:33] VITALS: BP 114/64; PULSE 95; RESP 16; TEMP 36.1; O2SAT 99
== END 2024-11-21 23:36 | disposition home or self-care (01) ==
LOC: ED 20:10
PROVIDERS: Emergency Provider Emergency Medicine; PCP Nurse Practitioner Family; Visit Provider Emergency Medicine
DX: O20.9 Hemorrhage in early pregnancy, unspecified (principal); O99.891 Other specified diseases and conditions complicating pregnancy; F17.290 Nicotine dependence, other tobacco product, uncomplicated; O99.330 Smoking (tobacco) complicating pregnancy, unspecified trimester; Z3A.00 Weeks of gestation of pregnancy not specified
CPT/HCPCS: 76817; 84702; 85014; 85018; 86900; 86901; 99283; A4216

== ENCOUNTER 2025-01-22 01:12 | Emergency (ER) | payer MEDICAID, SELFPAY ==
[2025-01-22 01:13] VITALS: BP 135/86; PULSE 98; RESP 18; TEMP 36.9; O2SAT 100; BMI 26.4
[2025-01-22] MEDS: 0.9% Normal Saline (1000mL) 1,000 ML 999 ML IV (01:54)
[2025-01-22] MEDS: DiphenhydrAMINE 50 MG/ML Syringe 25 MG IV (01:54)
[2025-01-22 02:05] LABS: Hematocrit 37.6 % (37-47); Hemoglobin 12.2 g/dL (12.0-15.0); Immature Granulocytes Count 0.030 X10^3/uL (0.0-0.0); Mean Corp Hgb Conc 32.4 g/dL (32-36); Mean Corpuscular Volume 85.6 fL (81-99); Mean Platelet Vol. 11.0 fl (6.2-12.0); NRBC Flagged by Analyzer 0 % (0-5); Platelet Count 234 K/mm3 (150-450); RBC Distribution Width CV 13.2 % (11.6-14.6); RBC Distribution Width SD 41.0 fl (35.1-43.9); Red Blood Count 4.39 M/mm3 (4.2-5.4); White Blood Count 8.9 K/mm3 (4.4-11.0)
[2025-01-22] MEDS: Lorazepam 2 MG/ML WCH Syringe 1 MG IV (02:12)
[2025-01-22 02:18] LABS: Internal QC Validated? YES +Cl - CLEAR BKGD; Pregnancy, Serum, hCG Quali. NEGATIVE Negative; Record Kit Lot#, Serum Preg. 0000947241
[2025-01-22 02:52] LABS: AST(SGOT) 18 U/L (<=31); Alanine Aminotransfer ALT/SGPT 10 U/L (<=34); Albumin, Serum 4.6 g/dL (3.5-5.0); Alkaline Phosphatase 72 U/L (35-104); Anion Gap 13 (5-15); BUN 6 mg/dL (4-19); BUN/Creat Ratio 9.0 RATIO (10-20); Bilirubin, Direct 0.13 mg/dL (0.00-0.30); Calcium,Total 9.3 mg/dL (7.6-11.0); Carbon Dioxide 22.3 mmol/L (21.0-32.0); Chloride 106 mmol/L (98-108); Estimated Creatinine Clearance 128.69 ml/min (50-250); Globulin 2.5 g/dL (2.2-4.2); Glucose 87 mg/dL (70-99); Lipase 12 U/L (13-75); Magnesium 1.9 mg/dL (1.5-2.2); Potassium 3.2 mmol/L (3.3-5.1)
--- NOTE | 2025-01-22 03:00 | EDS_ITS ---
HPI History of Present Illness Chief Complaint: General Illness Informant: patient and spouse/S.O. Narrative Narrative: Patient is a 24-year-old female with past medical history of anxiety and bipolar disorder. She states she has been at [place] recently around other people and today was outside in the sun all day. She states this evening she had a low-grade fever and had bouts of nausea and vomiting. She denies any known sick contacts but with her fever and bouts of vomiting she was concerned about heat exhaustion or infection and therefore comes in for evaluation. [facility] Medical History Anxiety Bipolar 1 disorder History of nicotine vaping Diarrhea during SAB (spontaneous ) Home Medications ?Medication ?Instructions ?Recorded ?Last Taken ?Type hydroxyzine HCl 25 mg tablet 25 mg PO TID PRN anxiety 11/19/24 Unknown History cholecalciferol (vitamin D3) 50 50 mcg PO DAILY Unknown History mcg (2,000 unit) capsule hydroxyzine HCl 50 mg tablet 100 mg PO QHS 01/22/25 Un known History promethazine 25 mg tablet 25 mg PO TID PRN nausea and 01/22/25 Unknown Rx vomiting 7 days #21 tabs Allergy/AdvReac Type Severity Reaction Status Date / Time cider vinegar Allergy Food Verified 01/22/25 01:12 Allergy Family History Grandfather Diabetes Hypertension Social History Smoking Status: Current every day smoker tobacco type: e-cigarettes alcohol intake: never substance use type: does not use caffeine: Yes what type of physical activity do you participate in: none seatbelt use: always do you feel safe at home: Yes ROS ROS ED Constitutional Constitutional ED: Reports fever(s); Denies chills Eyes Eyes: Denies change in vision ENT ENT ED: Denies sore throat Cardiovascular Cardiovascular: Reports racing heartbeat; Denies chest pain Respiratory/Chest Respiratory/Chest: Denies cough or dyspnea Gastrointestinal Gastrointestinal: Reports abdominal pain, nausea and vomiting; Denies diarrhea Genitourinary Genitourinary ED: Denies dysuria or hematuria Musculoskeletal Musculoskeletal: Reports myalgias Integumentary Denies rash Neurologic Neurologic: Reports headache(s) Hematologic/Lymphatic Hematologic/Lymphatic: Denies easy bleeding or easy bruising EXAM Physical Exam Const Vital Signs: 01/22/25 01:13 01/22/25 01:13 01/22/25 03:02 Temperature 98.4 F 98.4 F Temperature Source Oral Pulse Rate 98 82 Respiratory Rate 18 16 Respiratory Effort Normal Respiratory Pattern Normal Blood Pressure 135/86 H 126/74 H Blood Pressure Mean 102 91 Pulse Ox 100 100 Oxygen Delivery Method Room Air Positive well nourished and well developed General Appearance ED: well developed; Negative for pallor HEENT Reports dry mucous membranes HEENT Narrative: No tongue or lip swelling no oral lesions no airway edema or compromise No signs of infection noted in the posterior pharynx Mucous membranes are slightly dry and tacky Mouth ED: Yes dry mucous membranes Mouth: dry mucous membranes Eyes PERRL and EOMs intact bilaterally General Eye ED: Negative for scleral icterus Neck supple Neck Narrative: No nuchal rigidity or meningeal signs Resp normal respiratory effort and clear to auscultation bilaterally Cardio regular rhythm Rate: tachycardic and other Other Details: Slightly tachycardic rate with regular rhythm No murmurs rubs or gallop Radial and carotid pulses are equal and symmetric GI non-distended and no masses GI Narrative: Abdomen is soft and nondistended with hyperactive bowel sounds. No voluntary guarding or rigidity or pulsatile mass. No peritoneal signs. There is mild diffuse pain with palpation Auscultation: hyperactive bowel sounds Palpation: soft Back/Spine no CVA tenderness Extremity normal to inspection Neuro oriented x3, CN's II-XII intact bilaterally and no sensory deficits noted Sensorium / Orientation: alert Motor Exam: strength 5/5 throughout Psych Mood & Affect: anxious Skin no rashes or lesions noted General Skin Exam: Negative for jaundice or pallor MDM MDM MDM Narrative Medical decision making narrative: Patient presented to the ER with stable vitals and a soft nonsurgical abdomen so therefore I felt no need for an emergent CT scan. History and exam is most consistent with a viral stomach infection such as norovirus versus rotavirus. However patient could have atypical presentation for pancreatitis biliary colic or complication. Basic labs were obtained which showed normal lipase going against pancreatitis as well as normal liver enzymes going against biliary colic. test is negative going as complication and patient does not have leukocytosis or left shift going again systemic infection. After receiving IV fluids and pain and nausea medication she reported feeling better and had no further bouts of vomiting while in the ER. Therefore I do not feel there is need for further intervention or CT scan as her abdomen remains soft and nonsurgical and vital stable. Patient will be given symptomatic medication and is otherwise safe for discharge History & Record Review Discussion w/independent historian: Patient and Significant other Lab Data Attestation: I reviewed the patient's lab results. Labs: Laboratory Results - last 24 hr 01/22/25 01:54 WBC 8.9 RBC 4.39 Hgb 12.2 Hct 37.6 MCV 85.6 MCH 27.8 MCHC 32.4 RDW Std Deviation 41.0 RDW Coeff of Sanchez 13.2 Plt Count 234 MPV 11.0 Immature Gran % (Auto) 0.300 Neut % (Auto) 70.2 H Lymph % (Auto) 16.9 L Doddridge % (Auto) 11.7 H Eos % (Auto) 0.3 Baso % (Auto) 0.6 Absolute Neuts (auto) 6.2 Absolute Lymphs (auto) 1.50 Nucleated RBC % 0 Sodium 141 Potassium 3.2 L Chloride 106 Carbon Dioxide 22.3 Anion Gap 13 BUN 6 Creatinine 0.70 Estim Creat Clear Calc 128.69 Est GFR (MDRD) Non-Af 124 BUN/Creatinine Ratio 9.0 L Glucose 87 Calcium 9.3 Magnesium 1.9 Total Bilirubin 0.31 Direct Bilirubin 0.13 AST 18 ALT 10 Alkaline Phosphatase 72 Total Protein 7.1 Albumin 4.6 Globulin 2.5 Lipase 12 L Serum , Qual NEGATIVE Discharge Plan Triage Chief Complaint: General Illness ED Provider: Rasta Ayon Dx/Rx/DC Orders Clinical Impression: Nausea & vomiting, Anxiety, Bipolar disorder Instructions: ED Gastroenteritis, Viral (Adult), ED Vomiting (Adult) Prescriptions: New promethazine 25 mg tablet 25 mg PO TID PRN (Reason: nausea and vomiting) 7 Days Qty: 21 0RF No Action hydroxyzine HCl 25 mg tablet 25 mg PO TID PRN (Reason: anxiety) hydroxyzine HCl 50 mg tablet 100 mg PO QHS cholecalciferol (vitamin D3) 50 mcg (2,000 unit) capsule 50 mcg PO DAILY Primary Care Provider: Clemencia Rod NP Referrals: Clemencia Rod SEISMOGRAPH SUPERVISOR, SEISMOGRAPH SUPERVISOR-C [Primary Care Provider] - Activity Restrictions/Additional Instructions: Your workup today is most consistent with a viral stomach infection that will last anywhere from 12 hours to 7 days with the average being 3 days. Take the Phenergan as directed to help control further bouts of nausea and vomiting and keep yourself well-hydrated. Return to the ER should you have any further concerns Print Language: Greenlandic Disposition Disposition: Home, Self Care Discharge Date/Time: 01/22/25 03:05
[2025-01-22 03:02] VITALS: BP 126/74; PULSE 82; RESP 16; TEMP 36.9; O2SAT 100
== END 2025-01-22 03:05 | disposition home or self-care (01) ==
PROVIDERS: Emergency Provider Emergency Medicine; PCP Nurse Practitioner Family; Visit Provider Emergency Medicine
DX: R11.2 Nausea with vomiting, unspecified (principal); F31.9 Bipolar disorder, unspecified; F41.9 Anxiety disorder, unspecified; Z79.899 Other long term (current) drug therapy; F17.290 Nicotine dependence, other tobacco product, uncomplicated; R51.9 Headache, unspecified
CPT/HCPCS: 80048; 80076; 83690; 83735; 84703; 85025; 96361; 96374; 96375; 99283; A4216; J2405

== ENCOUNTER 2025-06-22 17:53 | Emergency (ER) | payer MEDICAID, SELFPAY ==
[2025-06-22 17:54] VITALS: BP 127/77; PULSE 114; RESP 18; TEMP 36.7; O2SAT 99; BMI 24.1
--- NOTE | 2025-06-22 18:11 | EDS_ITS ---
HPI HPI - Female History of Present Illness Chief Complaint: Vag Bld, Preg Informant: patient Pain Onset: Today Context: Sudden Onset Timing: Intermittent Quality: Positive for Sharp Location: RLQ Current Severity: Gone Worsened by: - (Nothing) Relieved by: - (Warm bath) Bleeding Issue: Positive for Vaginal bleeding Onset: Today Context: Sudden Onset Current Severity: Mild Maximum Severity: Mild Associated Symptoms Associated Symptoms: Negative for Dysuria, Frequency or Hematuria Test: Positive P: 2 Ab: 2 Narrative Narrative: Patient presents with lower abdominal cramping and vaginal bleeding that began today. Patient states she had an appoint with her MOTORCYCLE REPAIRER today. Patient states that after she got home from that appointment, she started having the pain and bleeding. Patient states the pain is resolved since that time. Patient states she took a warm bath which helped. Patient states nothing makes it worse. Patient states her pain is worse on the right lower pelvic area. Patient states her bleeding is less than her normal period but more than spotting. Patient denies any fevers or chills. Patient states she is approximately 7 weeks . Patient is 5 para 2 with 2 miscarriages PFSH PFS Medical History Anxiety Bipolar 1 disorder History of nicotine vaping Diarrhea during SAB (spontaneous ) no medical history Home Medications ?Medication ?Instructions ?Recorded ?Last Taken ?Type clindamycin phosphate 1 % topical 1 applic topical BID 06/22/25 06/19/25 History gel vits no.108-iron,carbonyl 1 tab PO DAILY 03/0906/19/25 History 30 mg iron-folic acid 1 mg tablet (Kosher Plus Iron) Allergy/AdvReac Type Severity Reaction Status Date / Time cider vinegar Allergy Food Verified 06/22/25 17:56 Allergy Family History Grandfather Diabetes Hypertension Surgical History no surgical history no surgical history Social History Smoking Status: Current every day smoker tobacco type: e-cigarettes alcohol intake: never substance use type: does not use caffeine: Yes what type of physical activity do you participate in: none seatbelt use: always do you feel safe at home: Yes ROS ROS ED Constitutional Constitutional ED: Denies chills or fever(s) Eyes Eyes: Denies blurry vision or change in vision ENT ENT ED: Denies rhinorrhea or sore throat Cardiovascular Cardiovascular: Denies chest pain or palpitations Respiratory/Chest Respiratory/Chest: Denies cough or dyspnea Gastrointestinal Gastrointestinal: Reports abdominal pain; Denies nausea or vomiting Genitourinary Genitourinary ED: Denies dysuria or hematuria Musculoskeletal Musculoskeletal: Denies back pain or neck pain Integumentary Denies abscess or rash Neurologic Neurologic: Denies headache(s) or weakness Allergic/Immunologic Allergic/Immunologic ED: Denies mouth swelling or urticaria EXAM Physical Exam Const Vital Signs: 06/22/25 17:54 06/22/25 19:53 06/22/25 20:34 Temperature 98.1 F 99.1 F Temperature Source Temporal Pulse Rate 114 H 88 99 Respiratory Rate 18 18 Blood Pressure 127/77 H 118/63 122/78 H Blood Pressure Mean 93 81 92 Pulse Ox 99 100 100 Oxygen Delivery Method Room Air Room Air Positive well nourished and well developed General Appearance ED: well developed and NAD HEENT Reports moist mucous membranes Neck supple and no JVD Resp normal respiratory effort and clear to auscultation bilaterally Cardio regular rate and regular rhythm GI soft to palpation and non-distended Palpation: tender RLQ and suprapubic; Negative for guarding Extremity normal to inspection and full ROM General Extremety ED: Negative for edema or tenderness General Extremity: Negative for edema Neuro oriented x3, CN's II-XII intact bilaterally and no sensory deficits noted Sensorium / Orientation: alert Motor Exam: strength 5/5 throughout Psych mental status grossly normal MDM MDM MDM Narrative Medical decision making narrative: Differential diagnosis includes ectopic , threatened miscarriage, dehydration, urinary tract infection, and ovarian cyst. CBC will be obtained to assess for leukocytosis and anemia. Basic metabolic profile will be obtained to assess for electrolyte abnormality renal function. Urinalysis will be obtained to assess for urinary tract infection and hematuria. Quantitative hCG will be obtained to assess for . Pelvic ultrasound will be obtained to assess for intrauterine versus ectopic . Lab Data Labs: Laboratory Results - last 24 hr 06/22/25 06/22/25 18:20 19:00 WBC 8.8 RBC 4.21 Hgb 12.2 Hct 35.9 L MCV 85.3 MCH 29.0 MCHC 34.0 RDW Std Deviation 40.6 RDW Coeff of Sanchez 13.1 Plt Count 249 MPV 10.7 Immature Gran % (Auto) 0.500 Neut % (Auto) 70.9 H Lymph % (Auto) 19.1 Fleming % (Auto) 8.5 Eos % (Auto) 0.7 Baso % (Auto) 0.3 Absolute Neuts (auto) 6.3 Absolute Lymphs (auto) 1.69 Nucleated RBC % 0 Sodium 138 Potassium 3.4 Chloride 106 Carbon Dioxide 22.7 Anion Gap 10 BUN 5 Creatinine 0.59 L Estim Creat Clear Calc 149.60 Est GFR (MDRD) Non-Af 130 BUN/Creatinine Ratio 9.1 L Glucose 95 Calcium 9.0 HCG, Quant 73320 H Urine Color Straw Urine Clarity Clear Urine pH 7.0 Ur Specific Severy 1.010 Urine Protein 15 H Urine Glucose (UA) Normal Urine Ketones Negative Urine Occult Blood 150 H Urine Nitrite Negative Urine Bilirubin Negative Urine Urobilinogen Normal Ur Leukocyte Esterase Negative Urine RBC 0-5 SEEN Urine WBC 0-5 SEEN Ur Squamous Epith Cells 0-5 SEEN Urine Bacteria 0 SEEN Urine Mucus 0 SEEN Radiography Diagnostic Testing: Clinical Impression(s) from Imaging Studies Obstetrics Ultrasound 06/22/25 18:11 IMPRESSION: Single live intrauterine gestation aged approximately 7 weeks 2 days. Large heterogeneous subchorionic hemorrhage. This may gradually decrease/resolve over time, but given its size poses an increased risk for miscarriage. Follow-up as clinically indicated. Reading Location: [facility] Pelvic ultrasound was obtained. There is a single live intrauterine gestation of approximately 7 weeks 2 days. There is a large heterogeneous subchorionic hemorrhage. This was interpreted by the radiologist. I also independently reviewed the images. There is good heart rate of 146. Treatment and Re-Evaluation Narrative: Patient was advised of her findings. Patient was instructed to follow-up with her MOTORCYCLE REPAIRER in 2 days. Patient was instructed on complete vaginal rest. Patient was instructed to avoid any vaginal intercourse, tampons, or douching. Patient understood and was agreeable with the plan. All questions were answered. Discharge Plan Triage Chief Complaint: Vag Bld, Preg ED Provider: Wally Fernandez Dx/Rx/DC Orders Clinical Impression: Threatened miscarriage in early , Pelvic pain Instructions: Miscarriage Threatened Prescriptions: No Action clindamycin phosphate 1 % gel 1 applic topical BID Kosher Plus Iron 30 mg iron- 1 mg tablet 1 tab PO DAILY Primary Care Provider: Clemencia Rod NP Referrals: Meagan Peraza CNM [Med Staff - [facility] Practice Prof, Obstetrics] - 2 Days Clemencia Rod ASBESTOS PIPE SUPERVISOR, ASBESTOS PIPE SUPERVISOR-C [Primary Care Provider, Family Practice] Print Language: Albanian Disposition Disposition: Home, Self Care Discharge Date/Time: 06/22/25 20:34
--- NOTE | 2025-06-22 18:11 | US_ITS ---
PROCEDURE: TRANSVAGINAL W/PREG US 06/22/2025 REASON FOR EXAM: VAGINAL BLEEDING TECHNIQUE: Procedure Code: [id number] Modality: US Procedure: TRANSVAGINAL W/PREG US COMPARISON: 11/21/2024 FINDINGS Anteverted uterus appears grossly normal in size and smooth in contour, measuring 10.2 x 7.6 x 5.3 cm. No discrete uterine myoma. The cervix is closed. There is a single intrauterine gestational sac with a mean sac diameter corresponding to a 7 week 2 day gestational age. A 0.4 cm yolk sac is present. A single pole is seen with a CRL of 1 cm, which corresponds to a 7 week 1 day gestational age. heart motion is observed on real-time imaging, with heart rate measured at 146 beats per minute. There is a large crescentic heterogeneous hypoechoic collection tracking along the inferior aspect of the gestational sac margin, compatible with a subchorionic hemorrhage. This subchorionic collection encompasses greater than 50% of the gestational sac size/circumference. Bilateral ovaries have a normal sonographic appearance. Blood flow is demonstrated bilaterally on color Doppler. No adnexal mass or significant free pelvic fluid visualized. US/Transvaginal w/Preg US IMPRESSION: Single live intrauterine gestation aged approximately 7 weeks 2 days. Large heterogeneous subchorionic hemorrhage. This may gradually decrease/resolv e over time, but given its size poses an increased risk for miscarriage. Follow-up as clinically indicated. Reading Location: [id number]
[2025-06-22 18:40] LABS: Hematocrit 35.9 % (37-47); Hemoglobin 12.2 g/dL (12.0-15.0); Immature Granulocytes Count 0.040 X10^3/uL (0.0-0.0); Mean Corp Hgb Conc 34.0 g/dL (32-36); Mean Corpuscular Volume 85.3 fL (81-99); Mean Platelet Vol. 10.7 fl (6.2-12.0); NRBC Flagged by Analyzer 0 % (0-5); Platelet Count 249 K/mm3 (150-450); RBC Distribution Width CV 13.1 % (11.6-14.6); RBC Distribution Width SD 40.6 fl (35.1-43.9); Red Blood Count 4.21 M/mm3 (4.2-5.4); White Blood Count 8.8 K/mm3 (4.4-11.0)
[2025-06-22 18:47] LABS: Anion Gap 10 (5-15); BUN 5 mg/dL (4-19); BUN/Creat Ratio 9.1 RATIO (10-20); Calcium,Total 9.0 mg/dL (7.6-11.0); Carbon Dioxide 22.7 mmol/L (21.0-32.0); Chloride 106 mmol/L (98-108); Estimated Creatinine Clearance 149.60 ml/min (50-250); Glucose 95 mg/dL (70-99); Potassium 3.4 mmol/L (3.3-5.1)
[2025-06-22 19:11] LABS: Mucous, Urine 0 SEEN /hpf (<or=2+)
[2025-06-22 19:50] LABS: Color, Urine Straw (Yellow); Glucose, Dipstick Normal (Normal); Ketone-Dipstick Negative (Negative); Leukocyte Esterase-Dipstick Negative /ul (Negative); Nitrite-Dipstick Negative (Negative); Occult Blood-Urine 150 /ul (Negative); Protein-Dipstick 15 mg/dl (Negative); Specific Gravity, Urine 1.010 (1.002-1.030); Urine Bilirubin Dipstick Negative (Negative)
[2025-06-22 19:53] VITALS: BP 118/63; PULSE 88; O2SAT 100
[2025-06-22 20:22] LABS: Red Blood Cells-Urine 0-5 SEEN /hpf (0-5); Squamous Epithelial Cells - UA 0-5 SEEN /hpf (5-10)
[2025-06-22 20:34] VITALS: BP 122/78; PULSE 99; RESP 18; TEMP 37.3; O2SAT 100
== END 2025-06-22 20:34 | disposition home or self-care (01) ==
PROVIDERS: Emergency Provider Emergency Medicine; PCP Nurse Practitioner Family; Visit Provider Emergency Medicine
DX: O20.0 Threatened abortion (principal); R10.20 Pelvic and perineal pain unspecified side; F17.290 Nicotine dependence, other tobacco product, uncomplicated; O99.891 Other specified diseases and conditions complicating pregnancy; O99.331 Smoking (tobacco) complicating pregnancy, first trimester; Z3A.01 Less than 8 weeks gestation of pregnancy
CPT/HCPCS: 76817; 80048; 81001; 84702; 85025; 99282